=== PATIENT | female | born 1975 | race Caucasian/White ===

== ENCOUNTER → 2016-11-01 | Outpatient (CLI) | payer OTHER ==
[2016-11-01 18:26] LABS: MEAN CORPUSCULAR HGB CONC 32.5 g/dl (32.0-36.5); RED CELL DISTRIBUTION WIDTH 14.3 % (11.5-14.5); WHITE BLOOD COUNT 7.5 K/mm3 (4.0-10.0)
[2016-11-01 19:27] LABS: ALBUMIN 3.3 GM/DL (3.2-5.2); ALBUMIN/GLOBULIN RATIO 1.03 (1.00-1.93); ALKALINE PHOSPHATASE 64 U/L (45-117); ALT/SGPT 63 U/L (12-78); ANION GAP 9 MEQ/L (8-16); AST/SGOT 29 U/L (15-37); BILIRUBIN,TOTAL 0.4 MG/DL (0.2-1.0); BLOOD UREA NITROGEN 10 MG/DL (7-18); CALCIUM LEVEL 8.6 MG/DL (8.5-10.1); CARBON DIOXIDE LEVEL 28 MEQ/L (21-32); CHLORIDE LEVEL 105 MEQ/L (98-107); CHOLESTEROL LEVEL 168 MG/DL (<200); CREATININE FOR GFR 0.74 MG/DL (0.55-1.02); GLOMERULAR FILTRATION RATE > 60.0 (>58); GLUCOSE, FASTING 80 MG/DL (70-105); POTASSIUM SERUM 4.2 MEQ/L (3.5-5.1); SODIUM LEVEL 142 MEQ/L (136-145); TOTAL PROTEIN 6.5 GM/DL (6.4-8.2); TRIGLYCERIDES LEVEL 157 MG/DL (<150)
== END ==
LOC: M WUC 09:42
PROVIDERS: ATTEND Family Medicine
DX: Z13.220 Encounter for screening for lipoid disorders (principal); R60.9 Edema, unspecified

== ENCOUNTER → 2017-03-03 | Outpatient (CLI) | payer OTHER ==
--- NOTE | 2017-03-03 09:36 | REP ---
PA and lateral chest: Comparison is 04/08/2016. The lung crawley are clear. The cardiac size is normal The dayne, mediastinum, and bony thorax are unremarkable. Impression: Negative PA and lateral chest. There is no interval change. Signed by Washington Lorenzo MD 03/03/2017 09:27 A
== END ==
LOC: M WUC 09:10
PROVIDERS: ATTEND Family Medicine
DX: J45.901 Unspecified asthma with (acute) exacerbation (principal)

== ENCOUNTER 2017-07-01 09:30 | Emergency (ER) | payer OTHER | END 2017-07-01 10:38 | disposition home or self-care (01) | LOC: M ED 09:30 | DX: S80.01XA Contusion of right knee, initial encounter (principal); W01.0XXA Fall on same level from slipping, tripping and stumbling without subsequent striking against object, initial encounter; Y92.099 Unspecified place in other non-institutional residence as the place of occurrence of the external cause; Y93.9 Activity, unspecified; Y99.0 Civilian activity done for income or pay; J45.909 Unspecified asthma, uncomplicated; Z79.899 Other long term (current) drug therapy | CPT/HCPCS: 73564 ==

== ENCOUNTER → 2017-09-27 | Outpatient (CLI) | payer OTHER | LOC: M SLEEP 20:00 | DX: G47.33 Obstructive sleep apnea (adult) (pediatric) (principal) | CPT/HCPCS: 95810 ==

== ENCOUNTER → 2017-10-20 | Outpatient (CLI) | payer OTHER | LOC: M SLEEP 19:25 | DX: G47.33 Obstructive sleep apnea (adult) (pediatric) (principal) | CPT/HCPCS: 95811 ==

== ENCOUNTER → 2018-05-05 | Outpatient (REF) | payer OTHER ==
[2018-05-08 14:13] LABS: HPV HYBRID CAPTURE II Negative (Negative)
== END ==
LOC: M SFHCWAGY 15:37
DX: Z12.4 Encounter for screening for malignant neoplasm of cervix (principal)
CPT/HCPCS: G0123

== ENCOUNTER → 2018-05-14 | Outpatient (CLI) | payer OTHER | LOC: M WHC 07:59 | DX: Z12.31 Encounter for screening mammogram for malignant neoplasm of breast (principal); Z80.0 Family history of malignant neoplasm of digestive organs; Z92.0 Personal history of contraception | CPT/HCPCS: 77067 ==

== ENCOUNTER → 2019-10-03 | Outpatient (CLI) | payer BC ==
[~2019-10-03] MED LIST: ALBU83IN; SYMB16INH INH; VENTAER
== END ==
LOC: M LABSMTC 13:53
PROVIDERS: ATTEND Family Medicine
DX: Z11.59 Encounter for screening for other viral diseases (principal)

== ENCOUNTER → 2020-07-24 | Outpatient (CLI) | payer BC ==
[2020-07-26 00:08] LABS: ANTINUCLEAR ANTIBODIES DIRECT Negative (Negative); CYCLIC CITRULLINATED PEPTIDE 11 units (0-19); IgG P18 AB Absent (.); IgG P23 AB Present (.); IgG P28 AB Absent (.); IgG P30 AB Absent (.); IgG P39 AB Absent (.); IgG P41 AB Present (.); IgG P45 AB Absent (.); IgG P66 AB Absent (.); IgG P93 AB Absent (.); IgM P23 AB Absent (.); IgM P39 AB Absent (.); IgM P41 AB Absent (.); LYME IgG WB INTERPRETATION Negative (.); LYME IgM WB INTERPRETATION Negative (.)
== END ==
LOC: M WUC 10:08
PROVIDERS: ATTEND Family Medicine
DX: M25.50 Pain in unspecified joint (principal)

== ENCOUNTER 2020-12-21 13:39 | Inpatient (IN) | payer BC ==
[~2020-12-21] VITALS: Ht 172.7 cm; Wt 169.2 kg
[~2020-12-21 13:39] MED LIST changes: -ALBU83IN; +ALBU83IN INH; -VENTAER; +VENTAER INH
[2020-12-21] MEDS ORDERED: PRED20TA PO (14:03)
[2020-12-21] MEDS ORDERED: DOXY1CAP62 PO (14:03)
[2020-12-21] MEDS ORDERED: NS 1,000 ML IV ONE (15:55)
[2020-12-21] MEDS ORDERED: ONDANSETRON 4MG/2ML VIAL IV ONE (15:55)
[2020-12-21] MEDS ORDERED: ACETAMINOPHEN 500 MG TAB PO ONE (16:25)
[2020-12-21 16:29] LABS: BASO # 0.1 10^3/uL (0.0-0.2); BASO % 0.3 % (0.0-1.0); EOS # 0.1 10^3/uL (0.0-0.5); EOS % 0.3 % (0.0-3.0); HEMATOCRIT 36.9 % (36.0-47.0); HEMOGLOBIN 10.6 g/dl (12.0-15.5); LYMPH # 1.2 10^3/uL (1.5-5.0); MEAN CORPUSCULAR HEMOGLOBIN 19.4 pg (27.0-33.0); MEAN CORPUSCULAR HGB CONC 28.7 g/dl (32.0-36.5); MEAN CORPUSCULAR VOLUME 67.5 fl (80.0-96.0); MONO # 0.8 10^3/uL (0.0-0.8); MONO % 4.1 % (2.0-8.0); NEUTROPHILS # 17.4 10^3/uL (1.5-8.5); NEUTROPHILS % 88.1 % (36.0-66.0); PLATELET COUNT, AUTOMATED 412 10^3/uL (150-450); RED BLOOD COUNT 5.47 10^6/uL (4.00-5.40); WHITE BLOOD COUNT 19.8 10^3/uL (4.0-10.0)
[2020-12-21 16:59] LABS: ALBUMIN 3.1 GM/DL (3.2-5.2); ALT/SGPT 38 U/L (12-78); BILIRUBIN,DIRECT 0.1 MG/DL (0.0-0.2); BILIRUBIN,TOTAL 0.3 MG/DL (0.2-1.0); BLOOD UREA NITROGEN 12 MG/DL (7-18); CALCIUM LEVEL 8.9 MG/DL (8.5-10.1); CARBON DIOXIDE LEVEL 28 MEQ/L (21-32); CHLORIDE LEVEL 104 MEQ/L (98-107); CREATININE FOR GFR 0.88 MG/DL (0.55-1.30); GLOMERULAR FILTRATION RATE > 60.0 (>58); GLUCOSE, FASTING 128 MG/DL (70-100); LIPASE 81 U/L (73-393); POTASSIUM SERUM 3.9 MEQ/L (3.5-5.1); SODIUM LEVEL 140 MEQ/L (136-145); TOTAL PROTEIN 7.2 GM/DL (6.4-8.2)
--- NOTE | 2020-12-21 17:36 | REP ---
INDICATION: RUQ pain, fever, vomiting. COMPARISON: None. TECHNIQUE: Right upper quadrant sonography. FINDINGS: Scanning through the right upper quadrant of the abdomen demonstrates a normal sized, thin-walled gallbladder without evidence of stone or polyp. Common bile duct is normal measuring 0.4 cm in greatest diameter. No focal liver lesion is seen. Liver size is normal. No pancreatic abnormality is observed. No right renal abnormality is seen. There is no evidence of ascites. The right kidney measures 11.9 x 6.8 x 4.9 cm. Scan quality is inhibited some degree by patient body habitus. Increased echogenicity is seen in the liver consistent with diffuse fatty infiltration. IMPRESSION: Evidence of fatty infiltration of the liver. Otherwise negative right upper quadrant sonogram.. <Electronically signed by Mitch Chong > 12/21/20 [id number]
[2020-12-21] MEDS ORDERED: ISOVUE-370 76% 100ML VIAL As Ordered ONE (17:52)
[2020-12-21] MEDS ORDERED: KETOROLAC 30 MG/ML 1ML VIAL IV ONE (18:15)
[2020-12-21 18:21] LABS: RSV AMPLIFICATION NEGATIVE (NEGATIVE)
[2020-12-21] MEDS ORDERED: LORA-674 PO (18:25)
[2020-12-21] MEDS ORDERED: FLUTISP NARES (18:25)
--- NOTE | 2020-12-21 18:40 | REPVR ---
PROCEDURE INFORMATION: Exam: CT Abdomen And Pelvis With Contrast Exam date and time: 12/21/2020 6:00 PM Age: 45 years old Clinical indication: Abdominal pain; Additional info: Ruq pain TECHNIQUE: Imaging protocol: Computed tomography of the abdomen and pelvis with contrast. Radiation optimization: All CT scans at this facility use at least one of these dose optimization techniques: automated exposure control; mA and/or kV adjustment per patient size (includes targeted exams where dose is matched to clinical indication); or iterative reconstruction. Contrast material: ISOVUE 370; Contrast volume: 100 ml; Contrast route: INTRAVENOUS (IV); COMPARISON: GALLBLADDER US 12/21/2020 5:03 PM FINDINGS: Liver: 7 mm benign-appearing low-attenuation foci in the dome and inferior right lobe of the liver not characterized on this single phase examination. These likely represent cysts or biliary hamartomas. Further evaluation with nonemergent ultrasound could be obtained if clinically desired. Mild hepatic steatosis. Remainder of the liver is unremarkable. Gallbladder and bile ducts: Unremarkable gallbladder and biliary tree. Pancreas: Normal. No ductal dilation. Spleen: There is mild splenomegaly with a maximum span of small centimeters. No focal abnormalities demonstrated. Adrenal glands: Normal. No mass. Kidneys and ureters: Normal. No hydronephrosis. Stomach and bowel: There is an inflammatory focus demonstrated in the mesentery in the left lower quadrant adjacent to the descending colon which demonstrates wall thickening and focal dilatation at the site of inflammation. There also appears to be involvement of adjacent small bowel loops demonstrating dilatation, thickened oconnor, and inflammatory changes in the adjacent mesentery. as well. Appendix: No evidence of appendicitis. Intraperitoneal space: Unremarkable. No free air. No significant fluid collection. Vasculature: Unremarkable. No abdominal aortic aneurysm. Lymph nodes: Unremarkable. No enlarged lymph nodes. Urinary bladder: Unremarkable as visualized. Reproductive: There is a 4.2 cm cyst in the left ovary likely functional. Confirmation with nonemergent pelvic ultrasound could be obtained if clinically desired. Bones/joints: Moderate central spinal stenosis L4-L5. Soft tissues: Unremarkable. IMPRESSION: 1. There is mild splenomegaly with a maximum span of small centimeters. No focal abnormalities demonstrated. 2. Abnormal appearance of the distal left colon and regional small bowel loops in the left lower quadrant and mid and upper abdominal region associated with a focus of inflammation in the left lower quadrant. No well-defined abscess demonstrated. Differential diagnosis includes diverticulitis, omental infarct and inflammatory bowel disease originating in the small bowel and secondarily involving the descending colon. Concomitant diverticulitis and inflammatory bowel disease also a consideration as is bowel infection. 3. There is a 4.2 cm cyst in the left ovary likely functional. Confirmation with nonemergent pelvic ultrasound could be obtained if clinically desired. Electronically signed by: Quan Alarcon On 12/21/2020 18:40:26 PM
[2020-12-21] MEDS ORDERED: PIPERACILLIN/TAZOBACTAM SOD 3.375 GM in D5W MINI-BAG PLUS 50 ML IV ONE (19:15)
[2020-12-21] MEDS ORDERED: MORPHINE 4 MG/ML 1ML VIAL/SYRINGE (J2270) IV PRN (19:40)
[2020-12-21] MEDS ORDERED: GLUCAGON INJ 1MG VIAL SC PRN (19:40)
[2020-12-21] MEDS ORDERED: GLUCOSE 4GM CHEW TABLET PO PRN (19:40)
[2020-12-21] MEDS ORDERED: DEXTROSE 50% 50 ML SYRINGE IV PRN (19:40)
[2020-12-21] MEDS ORDERED: NALOXONE INJ 0.4MG/1ML VIAL (J2310 PER 1MG) IV PRN (19:40)
[2020-12-21] MEDS: LORATADINE 10 MG TAB PO SCH (21:00)
[2020-12-21] MEDS ORDERED: MORPHINE 4 MG/ML 1ML VIAL/SYRINGE (J2270) IV ONE (21:35)
[2020-12-21 21:45] VITALS: BP 114/75
[2020-12-21] MEDS: PERCOCET 5MG/325MG TAB PO SCH (22:00)
[2020-12-21] MEDS: D5W/0.45% SODIUM CHLORIDE 1,000 ML IV SCH (22:27)
[2020-12-21] MEDS: CIPROFLOXACIN 400 MG in IV 1 EA IV SCH (22:28)
[2020-12-21] MEDS ORDERED: ALBUTEROL SULFATE 2.5 MG/0.5 ML INH NEB SOLN INH PRN (22:55)
[2020-12-21] MEDS ORDERED: ALBUTEROL 90 MCG/ACT 8GM HFA INHALER INH PRN (22:55)
--- NOTE | 2020-12-21 23:11 | HPEPDOC ---
[facility] Medical History & Physical Date of Admission Dec 21, 2020 Date of Service: Dec 21, 2020 History and Physical CHIEF COMPLAINT: Sharp abdominal pain at 11:45 AM to 12 noon HISTORY OF PRESENT ILLNESS: 45-year-old obese female with BMI 56.7 with past medical history significant for allergic rhinitis, asthma, right carpal tunnel release, fatty liver, L4-L5 central canal stenosis presents emergency room with acute onset of sharp periumbilical epigastric abdominal pain described as 10 out of 10 on pain scale, stabbing, and constant around 11:45 AM this morning which was unrelenting without fever nausea or vomiting patient took some ibuprofen 800 mg and Tylenol 1000 mg at home without relief. Pain is better when she lays still on her right side in position worse when she tries to move and ambulate without accompanying constipation diarrhea bright red blood per rectum melena black tarry stools, and no prior episodes in the past. Patient denies any alcohol use nonsteroidal anti-inflammatory use in the past.Patient was unable to eat any lunch and had some anorexia. She denies any loss of taste. In the ER she was found to be septic with white count of 19.8 tachycardic 116 bpm and tachypneic with respiratory rate of 22 and low-grade temperature of 100.4 CT abdomen and pelvis shows fatty liver distal left lower quadrant inflammation. Hospitalist was asked to admit the patient for diverticulitis possible early abscess. General surgeon Dr. BACON has been consulted. Patient was started on IV Cipro and Flagyl , as needed pain medications, kept n.p.o., IV fluids and placed on hypoglycemic protocol. PAST MEDICAL HISTORY: Morbid obesity BMI 56.7, allergic rhinitis, asthma, right carpal tunnel release, fatty liver, L4-L5 central canal stenosis , left carpal tunnel, left ovarian cyst PAST SURGICAL HISTORY: Right carpal tunnel release SOCIAL HISTORY: Denies alcohol recreational drug use or tobacco use works for [email or web address] FAMILY HISTORY: Mother with diabetes hypertension father alive and well ALLERGIES: Please see below. REVIEW OF SYSTEMS: 10 point review of systems negative aside from positive findings in HPI HOME MEDICATIONS: Please see below. PHYSICAL EXAMINATION: VITAL SIGNS: See below GENERAL APPEARANCE: No distress no cyanosis pallor icterus speaks in full s entences Lying on the right lateral position HEENT: Dry mucous membranes extra muscles intact no thyromegaly cervical lymphadenopathy carotid bruit or stridor Pupils equally round reactive extract muscles are intact neck is supple full range of motion no JVD. CARDIOVASCULAR: S1-S2 sinus rhythm no murmurs rubs or gallops LUNGS: Air entry is equal no wheezing rales or rhonchi clear to auscultation b ilaterally ABDOMEN: Obese soft tender in the epigastric region no rebound guarding positive bowel sounds x4 quadrants EXTREMITIES: No cyanosis clubbing or pitting edema LABORATORY DATA: See below. IMAGING: See below MICROBIOLOGY: Please see below. ASSESSMENT: 45-year-old female with morbid obesity BMI of 56.7, asthma, fatty liver, L4-L5 central canal stenosis, left ovarian cyst, bilateral carpal tunnel with right carpal tunnel release presents to the emergency room with acute onset of periumbilical epigastric abdominal pain without radiation unalleviated with Tylenol and ibuprofen found to be septic with white count of 19.8 tachypneic with respiratory rate of 22 tachycardic with heart rate of 116 bpm and low-grade temperature of 100.4, and CT abdomen and pelvis showing distal left lower quadrant inflammation fatty liver and left ovarian cyst. Patient will be admitted as an inpatient for 2 midnights for the following acute issues: Acute diverticulitis with possible early abscess -General surgery Dr. BACON has been consulted and recommended IV antibiotics and n.p.o. status he will be monitoring patient for worsening abscess formation which may require drainage placement in the future if no resolution with IV antibiotics. -IV fluids n.p.o. IV antiemetics IV pain medications IV Cipro IV Flagyl morbid obesity BMI of 56.7, -Complicating care specially with use of opioids for pain control with increased risk of hypercarbic respiratory failure most likely due to undiagnosed obstructive sleep apnea or hypoventilation syndrome. -As needed Narcan if patient's respiratory rate on opioids is less than 12, respiratory distress, or altered mental status occur -Nocturnal oximetry and МАРИЯ protocol asthma, compensated -Resume home bronchodilators as needed fatty liver -Check lipid profile L4-L5 central canal stenosis -On as needed pain medications left ovarian cyst -No immediate need to evaluate during this admission bilateral carpal tunnel with right carpal tunnel release -No new complaints Diet n.p.o. IV fluids hypoglycemic protocol DVT prophylaxis compression stockings CODE STATUS full code Vital Signs Vital Signs Date Time Temp Pulse Resp B/P (MAP) Pulse Ox O2 Delivery O2 Flow Rate FiO2 12/21/20 22:27 16 Room Air 12/21/20 21:45 99.6 111 114/75 (88) 99 Laboratory Data Labs 24H Laboratory Tests 2 12/21/20 15:52: Immature Granulocyte % (Auto) 1.2, Neutrophils (%) (Auto) 88.1H, Lymphocytes (%) (Auto) 6.0L, Monocytes (%) (Auto) 4.1, Eosinophils (%) (Auto) 0.3, Basophils (%) (Auto) 0.3, Neutrophils # (Auto) 17.4H, Lymphocytes # (Auto) 1.2L, Monocytes # (Auto) 0.8, Eosinophils # (Auto) 0.1, Basophils # (Auto) 0.1, Nucleated Red Blood Cells % (auto) 0.0, Anion Gap 8, Glomerular Filtration Rate > 60.0, Calcium Level 8.9, Total Bilirubin 0.3, Direct Bilirubin 0.1, Aspartate Amino Transf (AST/SGOT) 27, Alanine Aminotransferase (ALT/SGPT) 38, Alkaline Phosphatase 74, Total Protein 7.2, Albumin 3.1L, Albumin/Globulin Ratio 0.8L, Lipase 81 12/21/20 16:36: POC Beta HCG, Quantitative < 5.0 12/21/20 17:24: Coronavirus (COVID-19)(PCR) NEGATIVE, Influenza Type A (RT-PCR) NEGATIVE, Influenza Type B (RT-PCR) NEGATIVE, Respiratory Syncytial Virus (PCR) NEGATIVE CBC/BMP Laboratory Tests 12/21/20 15:52 Home Medications Scheduled Budesonide/Formoterol (Symbicort 160-4.5 Mcg Inhaler) 60 Puff/Inhaler Aers, 2 PUFF INH BID Doxycycline Monohydrate (Doxycycline Monohydrate) 100 Mg Capsule, 100 MG PO BID Fluticasone Propionate (Fluticasone Propionate) 16 Gm [place].susp, 2 SPRAY NARES QHS Loratadine (Loratadine) 10 Mg Tablet, 10 MG PO QHS Prednisone (Prednisone) 20 Mg Tablet, 40 MG PO DAILY Scheduled PRN Albuterol Sulf (Albuterol Sulfate) 2.5 Mg/3 Ml Nebu, 1 VIAL INH QID PRN for SOB/WHEEZING Albuterol Sulfate (Ventolin Hfa) 108 Mcg/Act Aer, 2 PUFF INH Q4H PRN for SOB/WHEEZING Allergies Coded Allergies: No Known Allergies (Unverified , 07/01/17) A-FIB/CHADSVASC A-FIB History Current/History of A-Fib/PAF?: No Current PO Anticoag Therapy: No Age/Risk Factor Scoring CHADSVASC: CHADSVASC Response (Comments) Value Age Risk Factor Age < 65 years old 0 Gender Risk Factor Female 1 Hx of CHF No 0 Hx of HTN No 0 Hx of Stroke/TIA/or VTE No 0 Hx of Diabetes No 0 Hx of Vascular Disease No 0 Total 1 Treatment Treatment ordered: NONE INDU GARCIA MD Dec 21, 2020 23:11
[2020-12-21] MEDS ORDERED: NS 2,000 ML IV ONE (23:20)
[2020-12-22] MEDS: metroNIDAZOLE 500 MG in IV 1 EA IV SCH ×4 (00:03→23:44)
[2020-12-22] MEDS: KETOROLAC 30 MG/ML 1ML VIAL IV SCH ×5 (00:03→23:44)
[2020-12-22] MEDS: FLUTICASONE PROP 0.05% NASAL SPRAY 16 GM (FLONASE) NARES SCH ×2 (01:25→21:05)
[2020-12-22 04:10] LABS: BASO % 0.2 % (0.0-1.0); EOS % 0.1 % (0.0-3.0); HEMATOCRIT 30.7 % (36.0-47.0); LYMPH # 1.5 10^3/uL (1.5-5.0); LYMPH % 8.1 % (24.0-44.0); MEAN CORPUSCULAR HEMOGLOBIN 19.9 pg (27.0-33.0); MEAN CORPUSCULAR HGB CONC 29.3 g/dl (32.0-36.5); MEAN CORPUSCULAR VOLUME 67.9 fl (80.0-96.0); MONO # 0.7 10^3/uL (0.0-0.8); MONO % 3.8 % (2.0-8.0); NEUTROPHILS # 15.6 10^3/uL (1.5-8.5); NEUTROPHILS % 87.1 % (36.0-66.0); PLATELET COUNT, AUTOMATED 297 10^3/uL (150-450); RED BLOOD COUNT 4.52 10^6/uL (4.00-5.40); WHITE BLOOD COUNT 17.9 10^3/uL (4.0-10.0)
[2020-12-22 04:45] LABS: BLOOD UREA NITROGEN 11 MG/DL (7-18); CALCIUM LEVEL 8.2 MG/DL (8.5-10.1); CARBON DIOXIDE LEVEL 29 MEQ/L (21-32); CHLORIDE LEVEL 108 MEQ/L (98-107); CHOLESTEROL LEVEL 99 MG/DL (<200); CREATININE FOR GFR 0.84 MG/DL (0.55-1.30); GLOMERULAR FILTRATION RATE > 60.0 (>58); GLUCOSE, FASTING 130 MG/DL (70-100); HDL CHOLESTEROL 45 MG/DL (>40); LDL CHOLESTEROL 43 MG/DL (<100); NON-HDL-C 54 MG/DL; POTASSIUM SERUM 4.3 MEQ/L (3.5-5.1); SODIUM LEVEL 144 MEQ/L (136-145); TRIGLYCERIDES LEVEL 55 MG/DL (<150)
[2020-12-22] MEDS: D5W/0.45% SODIUM CHLORIDE 1,000 ML IV SCH ×2 (05:18→15:40)
[2020-12-22] MEDS: PERCOCET 5MG/325MG TAB PO SCH ×3 (05:19→21:05)
[2020-12-22 06:00] VITALS: BP 107/64
[2020-12-22] MEDS: SYMBICORT 160/4.5MCG INHALER 6GM INH SCH ×2 (07:26→19:58)
[2020-12-22] MEDS: CIPROFLOXACIN 400 MG in IV 1 EA IV SCH ×2 (09:19→21:05)
--- NOTE | 2020-12-22 09:52 | CR.PDOC ---
General Surgery Consultation Date of Consultation 12/22/20 History and Physical CONSULT REPORT FOR: hospitalist service REASON FOR CONSULTATION: abdominal pain, enteritis colitis/diverticulitis HISTORY OF PRESENT ILLNESS: Patient is a 45 F admitted overnight for severe abdominal pain and discomfort that started early in the day. Patient reports she was in her usual state of health up until midmorning Thursday when she had sudden onset of severe lower abdominal pain that she describes as sharp and crampy there all followed by nausea and vomiting. She denies any of her family members that are ill similar to her. She has no prior episodes of similar symptoms. She had breakfast abdominal earlier in the day with her daughter and her daughter feels fine. She has no prior episodes of diverticulitis though she tells me her grandmother of diverticulitis. She has no prior colonoscopies. She was evaluated in the emergency room and found to have leukocytosis up to 19,000, uncomfortable in appearance also with low-grade fever. She has CT scan of the abdomen pelvis showing inflammation along the lower abdomen with a small amount of free fluid and mesenteric edema related to the small bowel as well as the left side of the colon. No free air. She was admitted overnight for possibility of diverticulitis. She was started on IV fluids as well as ciprofloxacin and metronidazole. She is seen early this morning. She reports she is mildly improved though she still has moderate discomfort and she points to the area to the right of the umbilicus, right lower quadrant and right upper quadrant where she feels most of the discomfort. She also has some discomfort over the left lower abdomen but more so on the right. She denies any nausea. She has not had any diarrhea. Her nausea has improved. She is documented to have episodes of low-grade fever overnight. PAST MEDICAL HISTORY: 1. obesity with bmi 56.7 2. leah on cpap 3. denies diabetes 4. asthma. PAST SURGICAL HISTORY: INCLUDES: 1. carpal tunnel surgery. PREVIOUS ANESTHESIA REACTIONS: denies ALLERGIES: Please see below. FAMILY HISTORY: grandmother had diverticulitis. HOME MEDICATIONS: Please see below. REVIEW OF SYSTEMS: GENERAL: low grade fever on presentation. Symptoms are acute in nature 1 day duration otherwise she was in her usual state of health HEENT: Denies problems with vision or hearing. NECK: Denies any neck pain]. CARDIOVASCULAR: Denies chest pain and palpitations. MUSCULOSKELETAL: Had recent carpal tunnel surgery. SKIN: Denies rash. NEUROLOGIC: Denies headaches. HEMATOLOGY/ONCOLOGY: Denies bleeding or clotting disorder. PULMONARY: Denies chronic cough, dyspnea and wheezing. She has sleep apnea on CPAP which he uses. GASTROINTESTINAL: Denies rectal bleeding, family history of colon cancer, constipation, diarrhea, dysphagia, heartburn and jaundice. no prior colonoscopies GENITOURINARY: Denies dysuria, frequency, hematuria and nocturia. ENDOCRINE: Denies polydipsia, polyphagia, polyuria, heat or cold intolerance. INFECTIOUS: Denies any recent upper respiratory tract infection, UTI, need for use of antibiotics. NUTRITION: generally good appetite, but not hungry at the moment. PHYSICAL EXAMINATION: VITALS SIGNS: Please see below. GENERAL APPEARANCE: Patient seen laying on her right side, looks mildly uncomfortable. SKIN: Warm and dry. HEENT: Normocephalic, atraumatic. LUNGS: Clear to auscultation bilaterally. No wheezing appreciated. HEART: No chest wall abnormalities. Regular rate and rhythm with no murmurs ap preciated. ABDOMEN: Abdomen is obese, mildly distended, soft. Tender mostly on the right side -rlq, ruq, no guarding. mildly tender over llq. EXTREMITIES: Extremities have no deformities. No edema identified ANCILLARIES: . LABORATORY DATA: Please see below. IMAGING STUDIES: CT abdomen and pelvis Inflammation related to the left colon also loops of small bowel near it. No well-defined abscess. No free air. RUQ US - fatty liver IMPRESSION AND PLAN: enteritis/colitis vs diverticulitis There is a good amount of inflammation, fluid within the mesentery at the sigmoid level. Unclear from history and exam and imaging if it is small bowel enteritis vs colon/diverticulitis. Patient is centrifugal casting machine tender, mildly better, still with low grade fever. Continue with abx. ambulate. sips of clears for comfort no indication for emergent surgical exploration at this point I would suggest to follow the crp which may be more sensitive in determining soft tissue inflammation resolution if no better tomorrow, repeat CT to look for abscess formation. will follow along. Vital Signs Vital Signs Date Time Temp Pulse Resp B/P (MAP) Pulse Ox O2 Delivery O2 Flow Rate FiO2 12/22/20 06:00 100.4 123 20 107/64 (78) 92 Room Air I&Os I&O- Last 24 Hours up to 6 AM 12/22/20 06:00 Intake Total 3665 ml Output Total 0 ml Balance 3665 ml Laboratory Data Labs 24H Laboratory Tests 2 12/21/20 15:52: Immature Granulocyte % (Auto) 1.2, Neutrophils (%) (Auto) 88.1H, Lymphocytes (%) (Auto) 6.0L, Monocytes (%) (Auto) 4.1, Eosinophils (%) (Auto) 0.3, Basophils (%) (Auto) 0.3, Neutrophils # (Auto) 17.4H, Lymphocytes # (Auto) 1.2L, Monocytes # (Auto) 0.8, Eosinophils # (Auto) 0.1, Basophils # (Auto) 0.1, Nucleated Red Blood Cells % (auto) 0.0, Anion Gap 8, Glomerular Filtration Rate > 60.0, Calcium Level 8.9, Total Bilirubin 0.3, Direct Bilirubin 0.1, Aspartate Amino Transf (AST/SGOT) 27, Alanine Aminotransferase (ALT/SGPT) 38, Alkaline Phospha tase 74, Total Protein 7.2, Albumin 3.1L, Albumin/Globulin Ratio 0.8L, Lipase 81 12/21/20 16:36: POC Beta HCG, Quantitative < 5.0 12/21/20 17:24: Coronavirus (COVID-19)(PCR) NEGATIVE, Influenza Type A (RT-PCR) NEGATIVE, Influenza Type B (RT-PCR) NEGATIVE, Respiratory Syncytial Virus (PCR) NEGATIVE 12/21/20 23:41: Erythrocyte Sedimentation Rate 67H, Lactic Acid Level 2.5*H, C-Reactive Protein, Quantitative 9.53H 12/22/20 03:58: Immature Granulocyte % (Auto) 0.7, Neutrophils (%) (Auto) 87.1H, Lymphocytes (%) (Auto) 8.1L, Monocytes (%) (Auto) 3.8, Eosinophils (%) (Auto) 0.1, Basophils (%) (Auto) 0.2, Neutrophils # (Auto) 15.6H, Lymphocytes # (Auto) 1.5, Monocytes # (Auto) 0.7, Eosinophils # (Auto) 0.0, Basophils # (Auto) 0.0, Nucleated Red Blood Cells % (auto) 0.0, Anion Gap 7L, Glomerular Filtration Rate > 60.0, Estimated Mean Plasma Glucose 126H, Hemoglobin A1c 6.0, Lactic Acid Followup at 4 Hours 1.2, Calcium Level 8.2L, Triglycerides Level 55, Total Cholesterol 99, LDL Cholesterol 43, Non-HDL Cholesterol (LDL + VLDL) 54, Total HDL Cholesterol 45, Cholesterol/HDL Ratio 2.200, Thyroid Stimulating Hormone (TSH) 1.330 12/22/20 06:26: CBC/BMP Laboratory Tests 12/21/20 15:52 12/22/20 03:58 Microbiology Microbiology 12/21/20 Blood Culture, Received Pending 12/21/20 Blood Culture, Received Pending Home Medications Scheduled Budesonide/Formoterol (Symbicort 160-4.5 Mcg Inhaler) 60 Puff/Inhaler Aers, 2 PUFF INH BID, (Reported) Doxycycline Monohydrate (Doxycycline Monohydrate) 100 Mg Capsule, 100 MG PO BID, (Reported) Fluticasone Propionate (Fluticasone Propionate) 16 Gm [place].susp, 2 SPRAY NARES QHS, (Reported) Loratadine (Loratadine) 10 Mg Tablet, 10 MG PO QHS, (Reported) Prednisone (Prednisone) 20 Mg Tablet, 40 MG PO DAILY, (Reported) Scheduled PRN Albuterol Sulf (Albuterol Sulfate) 2.5 Mg/3 Ml Nebu, 1 VIAL INH QID PRN for SOB/WHEEZING, (Reported) Albuterol Sulfate (Ventolin Hfa) 108 Mcg/Act Aer, 2 PUFF INH Q4H PRN for SOB/WHEEZING, (Reported) Allergies Coded Allergies: No Known Allergies (Unverified , 07/01/17) HOLGER BACON MD Dec 22, 2020 09:52
--- NOTE | 2020-12-22 11:39 | IPNPDOC ---
Text Note Date of Service The patient was seen on 12/22/20. NOTE Hospitalist Progress Note Subjective: Patient continues to suffer from fairly severe abdominal pain. No nausea or vomiting at this time. Objective: General: Awake, alert, oriented 3. Not in any acute distress. HEENT: Head normocephalic, atraumatic, sclera are nonicteric. Hearing is grossly intact to conversation. Respiratory: Clear to auscultation bilaterally with no wheezes, rales, or rhonchi. Cardiovascular: Regular rate and rhythm, with no rubs, gallops, or murmur. Abdomen: Soft, tender to even light palpation, obese, Bowel sounds are faint, but present. Extremities: 2+ pulses in the radial and dorsalis pedis bilaterally. No evidence of clubbing or cyanosis. Assessment: Acute diverticulitis, with concern for possible abscess formation Morbid obesity with BMI greater than 50 Asthma Fatty liver L4-5 central canal stenosis stenosis Left ovarian cyst (incidental finding, recommend follow-up outpatient ultrasound) Plan: -Continue bowel rest / n.p.o. at this time -Continue Cipro and Flagyl empirically -Continue fluid resuscitation with normal saline -Continue pain control with morphine, Toradol, Percocet -General surgery has been consulted, and they recommendation to follow a daily CRP, and if the patient is not clinically improved tomorrow, then will repeat CT evaluate for abscess formation. Recommendations are much appreciated. VS,Fishbone, I+O VS, Fishbone, I+O Laboratory Tests 12/21/20 15:52 12/22/20 03:58 Vital Signs Date Time Temp Pulse Resp B/P (MAP) Pulse Ox O2 Delivery O2 Flow Rate FiO2 12/22/20 06:00 100.4 123 20 107/64 (78) 92 Room Air I&O- Last 24 Hours up to 6 AM 12/22/20 06:00 Intake Total 3665 ml Output Total 0 ml Balance 3665 ml VERONICA SHERMAN DO Dec 22, 2020 11:39
[2020-12-22] MEDS: ACETAMINOPHEN TAB 650MG DOSE (2X325MG) PO PRN (12:16)
[2020-12-22] MEDS ORDERED: IBUPROFEN 600MG TAB PO PRN (13:55)
[2020-12-22 14:00] VITALS: BP 100/62
[2020-12-22] MEDS ORDERED: SODIUM CHLORIDE 0.9% 1000ML IV ONE (14:30)
[2020-12-22 14:48] VITALS: BP 102/64
[2020-12-22] MEDS: LORATADINE 10 MG TAB PO SCH (21:05)
[2020-12-22 21:11] VITALS: BP 116/77
[2020-12-23 05:10] VITALS: BP 121/79
[2020-12-23] MEDS: KETOROLAC 30 MG/ML 1ML VIAL IV SCH ×3 (05:13→18:22)
[2020-12-23] MEDS: PERCOCET 5MG/325MG TAB PO SCH ×3 (05:14→21:24)
[2020-12-23] MEDS: D5W/0.45% SODIUM CHLORIDE 1,000 ML IV SCH ×3 (05:30→21:24)
[2020-12-23 06:17] LABS: BASO % 0.2 % (0.0-1.0); EOS # 0.2 10^3/uL (0.0-0.5); HEMATOCRIT 29.8 % (36.0-47.0); HEMOGLOBIN 8.4 g/dl (12.0-15.5); LYMPH # 0.9 10^3/uL (1.5-5.0); LYMPH % 5.3 % (24.0-44.0); MEAN CORPUSCULAR HEMOGLOBIN 19.3 pg (27.0-33.0); MEAN CORPUSCULAR HGB CONC 28.2 g/dl (32.0-36.5); MEAN CORPUSCULAR VOLUME 68.3 fl (80.0-96.0); MONO # 0.6 10^3/uL (0.0-0.8); MONO % 3.3 % (2.0-8.0); PLATELET COUNT, AUTOMATED 287 10^3/uL (150-450); RED BLOOD COUNT 4.36 10^6/uL (4.00-5.40); WHITE BLOOD COUNT 16.8 10^3/uL (4.0-10.0)
[2020-12-23 06:49] LABS: BLOOD UREA NITROGEN 9 MG/DL (7-18); CALCIUM LEVEL 7.8 MG/DL (8.5-10.1); CARBON DIOXIDE LEVEL 25 MEQ/L (21-32); CHLORIDE LEVEL 108 MEQ/L (98-107); CREATININE FOR GFR 0.72 MG/DL (0.55-1.30); GLOMERULAR FILTRATION RATE > 60.0 (>58); GLUCOSE, FASTING 147 MG/DL (70-100); POTASSIUM SERUM 3.9 MEQ/L (3.5-5.1); SODIUM LEVEL 139 MEQ/L (136-145)
[2020-12-23] MEDS: SYMBICORT 160/4.5MCG INHALER 6GM INH SCH ×2 (07:07→20:01)
[2020-12-23 07:40] VITALS: BP 114/62
[2020-12-23] MEDS: metroNIDAZOLE 500 MG in IV 1 EA IV SCH ×2 (08:28→16:18)
[2020-12-23 10:00] VITALS: BP 109/64
[2020-12-23] MEDS: CIPROFLOXACIN 400 MG in IV 1 EA IV SCH ×2 (10:07→21:24)
[2020-12-23] MEDS: GASTROGRAFIN SOLUTION 30ML PO SCH ×2 (10:08→10:37)
[2020-12-23] MEDS: ACETAMINOPHEN TAB 650MG DOSE (2X325MG) PO PRN (10:58)
[2020-12-23] MEDS ORDERED: ISOVUE-370 76% 100ML VIAL As Ordered ONE (11:19)
--- NOTE | 2020-12-23 11:19 | IPNPDOC ---
Text Note Date of Service The patient was seen on 12/23/20. NOTE Patient reports feeling mildly improved with her abdominal pain, denies nausea. She had documented febrile episodes yesterday. No bowel movements reported. She has not noted if she is passing any flatus. Vital signs T-max 101.1 at 1400 yesterday to current 99.4 Pulse rate 115 Respiratory rate 19, 99% at room air Blood pressure 116/77 Examination Looks a bit more comfortable today. She is laying flat in bed on her back. Lung sounds are clear to auscultation bilaterally Slightly tachycardic, regular rhythm Abdomen is obese, minimally distended. Main area of tenderness is around the mid abdomen more on the right than on the left, mild guarding at around that area. Impression and plan Enteritis versus diverticulitis with continued ongoing symptoms, systemic infla mmatory response from this Repeat labs shows persistent leukocytosis, markedly high CRP of 29.4 which is a big change from initial CRP of 9.5. Recommend repeating CT abdomen and pelvis, look for drainable fluid collection and if there is set up for percutaneous drainage. Continue with IV antibiotics. She may be ready for clears after the CT VS,Fishbone, I+O VS, Fishbone, I+O Laboratory Tests 12/23/20 05:42 Vital Signs Date Time Temp Pulse Resp B/P (MAP) Pulse Ox O2 Delivery O2 Flow Rate FiO2 12/23/20 10:00 98.3 103 20 109/64 (79) 90 Room Air I&O- Last 24 Hours up to 6 AM 12/23/20 06:00 Intake Total 1100 ml Output Total 1000 ml Balance 100 ml HOLGER BACON MD Dec 23, 2020 11:19
--- NOTE | 2020-12-23 11:52 | REP ---
INDICATION: productive cough. COMPARISON: Comparison chest x-ray April 05, 2017. TECHNIQUE: Two views.. FINDINGS: The lungs are well inflated and free of infiltrate. The pleural angles are sharp. The heart size is normal. Pulmonary vasculature is not increased. No significant bony abnormality is seen. IMPRESSION: No acute disease. No infiltrate seen.. <Electronically signed by Mitch Chong > 12/23/20 [id number]
--- NOTE | 2020-12-23 12:15 | REP ---
INDICATION: ffup enteritis/diverticulitis. COMPARISON: Comparison CT study December 21, 2020.. TECHNIQUE: Helical scanning is acquired and 3 mm axial images re-formatted. Coronal and sagittal MPR images are generated. The CT contrast enhancement dose is 100 mL of intravenous Isovue 370. Oral contrast was also administered. FINDINGS: Preliminary digital paper cutter radiograph is noncontributory. There is discoid atelectasis in the right lower lobe and a tiny sliver of right pleural fluid is visible. There is mild diffuse fatty infiltration of the liver. The liver appears enlarged with a midclavicular vertical span of 20.6 cm. This is unchanged. The spleen remains homogeneous. The gallbladder is distended measuring up to 11.7 cm in greatest diameter today. No pancreatic abnormality is seen. Normal adrenal glands are observed. Kidneys enhance symmetrically. There are small parapelvic cysts in the left kidney. No hydronephrosis is seen. The previously noted inflammatory changes in the left mid abdomen are again noted essentially unchanged. There is a segment of mural thickening in the redone in mid transverse colon with pericolonic streaking and adjacent induration and infiltration of the mesenteric fat in the left mid abdomen. This is essentially unchanged. No stacie abscess is seen. I do not see definite diverticulosis in the descending colon. There is diverticulosis in the sigmoid segment. There is a small quantity of fluid adjacent to central abdominal small bowel loops in both the right and to the left of the abdomen consistent with ascitic fluid. The previously noted cystic area in the left ovary is again seen. There is left pericolic fluid adjacent to this. The ovaries are somewhat high in the pelvis. Urinary bladder and uterus are unremarkable. No obstructive lesion is seen. There is a single diverticulum in the posterior wall of the cecum. A normal caliber appendix is seen. IMPRESSION: Findings are essentially unchanged from the December 21, 2020 study. There is a abnormal loop of descending colon characterized by mural thickening and pericolonic streaking. There is fairly extensive inflammation in the adjacent pericolonic mesenteric fat and there are areas of interloop ascitic fluid in the abdomen left pericolic region and between loops of small bowel which are slightly inflamed as well. There is no evidence of free air or drainable abscess. There is a single right colonic diverticulum and there is diverticulosis of the distal sigmoid colon.. Differential possibilities include diverticulitis, descending colonic malignancy, and inflammatory bowel disease. <Electronically signed by Mitch Chong > 12/23/20 [id number]
[2020-12-23 14:00] VITALS: BP 118/69
--- NOTE | 2020-12-23 14:37 | IPNPDOC ---
Subjective Date Seen The patient was seen on 12/23/20. Subjective Chief Complaint/HPI Mrs. Lopez is a 45 year old female with morbid obesity and asthma who presents with abdominal pain and found to have acute diverticulitis. This morning, he abdominal pain was feeling slightly better, but still present. Denies chest pain, but did report some shortness of breath. CXR did not demonstrate any acute cardiopulmonary disease. Otherwise, patient was on prednisone outpatient for bronchitis. She completed her steroid course. Objective Physical Examination General Exam: Positive: Alert, Cooperative Eye Exam: Negative: Sclera icteric ENT Exam: Positive: Atraumatic Neck Exam: Positive: Supple Chest Exam: Positive: Clear to auscultation Heart Exam: Positive: Tachycardic, Regular Rhythm Abdomen Exam: Positive: Normal bowel sounds, Soft; Negative: Tenderness Extremity Exam: Positive: Edema Neuro Exam: Positive: Normal Speech Psych Exam: Positive: Mental status NL, Mood NL Assessment /Plan Assessment Mrs. Lopez is a 45 year old female with morbid obesity and asthma who presents with abdominal pain and found to have acute diverticulitis. General surgery following recommendations appreciated. Continue ciprofloxacin, metronidazole, and IVF Plan/VTE VTE Prophylaxis Ordered?: Yes Plan 1. Acute diverticulitis vs enteritis -General surgery following, recommendations appreciated -Continue with ciprofloxacin and metronidazole day 3 -Continue IVF -Currently NPO 2. Asthma -Continue PRN albuterol 3. Morbid obesity -Complicates care 4. DVT ppx -SCD Disposition: Pending clinical improvement VS, I&O, 24H, Fishbone Vital Signs/I&O Vital Signs Date Time Temp Pulse Resp B/P (MAP) Pulse Ox O2 Delivery O2 Flow Rate FiO2 12/23/20 14:10 24 12/23/20 10:00 98.3 103 109/64 (79) 90 Room Air I&O- Last 24 Hours up to 6 AM 12/23/20 06:00 Intake Total 1100 ml Output Total 1000 ml Balance 100 ml Laboratory Data 24H LABS Laboratory Tests 2 12/22/20 16:56: Bedside Glucose (Misc Panel) 100 12/22/20 19:00: Urine Color DRU, Urine Appearance HAZY, Urine pH 5.0, Urine Specific [place] 1.036, Urine Protein 2+H, Urine Glucose (UA) NEGATIVE, Urine Ketones NEGATIVE, Urine Blood NEGATIVE, Urine Nitrite NEGATIVE, Urine Bilirubin NEGATIVE, Urine Urobilinogen 0.2, Urine Leukocyte Esterase NEGATIVE, Urine WBC (Auto) 10H, Urine RBC (Auto) 2, Urine Hyaline Casts (Auto) 0, Urine Bacteria (Auto) 1+H, Urine Squamous Epithelial Cells 7, Urine Mucus (Auto) SMALL, Urine Sperm (Auto) 12/22/20 20:41: Bedside Glucose (Misc Panel) 116H 12/23/20 00:28: Bedside Glucose (Misc Panel) 131H 12/23/20 05:42: Immature Granulocyte % (Auto) 1.2, Neutrophils (%) (Auto) 89.0H, Lymphocytes (%) (Auto) 5.3L, Monocytes (%) (Auto) 3.3, Eosinophils (%) (Auto) 1.0, Basophils (%) (Auto) 0.2, Neutrophils # (Auto) 15.0H, Lymphocytes # (Auto) 0.9L, Monocytes # (Auto) 0.6, Eosinophils # (Auto) 0.2, Basophils # (Auto) 0.0, Nucleated Red Blood Cells % (auto) 0.0, Anion Gap 6L, Glomerular Filtration Rate > 60.0, Calcium Level 7.8L, C-Reactive Protein, Quantitative 29.40H 12/23/20 12:28: Bedside Glucose (Misc Panel) 94 CBC/BMP Laboratory Tests 12/23/20 05:42 Microbiology Microbiology 12/21/20 Blood Culture - Preliminary, Resulted No growth after 24 hours . All specim... 12/21/20 Blood Culture - Preliminary, Resulted No growth after 24 hours . All specim... ARBEN GALLO DO Dec 23, 2020 14:37
[2020-12-23 18:00] VITALS: BP 105/70
[2020-12-23 21:00] VITALS: BP 113/67
[2020-12-23] MEDS: FLUTICASONE PROP 0.05% NASAL SPRAY 16 GM (FLONASE) NARES SCH (21:24)
[2020-12-23] MEDS: LORATADINE 10 MG TAB PO SCH (21:24)
[2020-12-24] MEDS: KETOROLAC 30 MG/ML 1ML VIAL IV SCH ×4 (00:08→17:03)
[2020-12-24] MEDS: metroNIDAZOLE 500 MG in IV 1 EA IV SCH ×3 (00:08→15:27)
[2020-12-24] MEDS: PERCOCET 5MG/325MG TAB PO SCH (05:07)
[2020-12-24 05:16] VITALS: BP 111/67
[2020-12-24 06:43] LABS: BASO % 0.2 % (0.0-1.0); EOS # 0.3 10^3/uL (0.0-0.5); EOS % 2.3 % (0.0-3.0); HEMATOCRIT 28.5 % (36.0-47.0); LYMPH # 0.8 10^3/uL (1.5-5.0); LYMPH % 6.8 % (24.0-44.0); MEAN CORPUSCULAR HEMOGLOBIN 19.2 pg (27.0-33.0); MEAN CORPUSCULAR HGB CONC 28.1 g/dl (32.0-36.5); MEAN CORPUSCULAR VOLUME 68.5 fl (80.0-96.0); MONO # 0.5 10^3/uL (0.0-0.8); MONO % 4.3 % (2.0-8.0); NEUTROPHILS # 10.6 10^3/uL (1.5-8.5); PLATELET COUNT, AUTOMATED 269 10^3/uL (150-450); RED BLOOD COUNT 4.16 10^6/uL (4.00-5.40); WHITE BLOOD COUNT 12.4 10^3/uL (4.0-10.0)
[2020-12-24 07:18] LABS: BLOOD UREA NITROGEN 6 MG/DL (7-18); CALCIUM LEVEL 7.7 MG/DL (8.5-10.1); CARBON DIOXIDE LEVEL 26 MEQ/L (21-32); CHLORIDE LEVEL 107 MEQ/L (98-107); CREATININE FOR GFR 0.59 MG/DL (0.55-1.30); GLOMERULAR FILTRATION RATE > 60.0 (>58); GLUCOSE, FASTING 141 MG/DL (70-100); POTASSIUM SERUM 3.8 MEQ/L (3.5-5.1); SODIUM LEVEL 139 MEQ/L (136-145)
[2020-12-24] MEDS: SYMBICORT 160/4.5MCG INHALER 6GM INH SCH ×2 (07:26→20:57)
[2020-12-24] MEDS: D5W/0.45% SODIUM CHLORIDE 1,000 ML IV SCH ×2 (08:13→18:16)
[2020-12-24] MEDS: CIPROFLOXACIN 400 MG in IV 1 EA IV SCH ×2 (09:39→21:01)
--- NOTE | 2020-12-24 13:02 | IPNPDOC ---
Text Note Date of Service The patient was seen on 12/24/20. NOTE General surgery. Dr. Goyal The patient is sitting up on the side of the bed reporting improvement in her abdominal pain. Denies nausea or vomiting. Reports 2 bowel movements this morning. T-max 100.1 at 1400 hrs. 12/23/2020. This morning 99.3. Sitting on the side of the bed, currently appears comfortable. Heart rate 104, respiratory rate 20, blood pressure 111/67, 93% room air. Abdomen is obese, soft, mildly distended, slight tenderness with palpation in the right upper and mid abdomen areas. WBC 12.4, decreased from 16.8. Hemoglobin 8.0, platelets 269 CRP 26.10 this morning, decreased slightly from 29.40 yesterday. Assessment/plan enteritis versus diverticulitis, SIRS. The patient is reviewed and examined as per Dr. Goyal this morning. The patient is sitting on the side of the bed and reports improvement in her symptoms, decrease pain. The patient is afebrile this morning. CRP is decreased slightly today, WBC also decreased today. CT abdomen/pelvis obtained yesterday did not indicate any abscess or drainable fluid collection. Continue IV fluids, IV antibiotics as per hospitalist. Trial of clear liquid Discussed tentative plan for outpatient colonoscopy. Continue to closely monitor. VS,Fishbone, I+O VS, Fishbone, I+O Laboratory Tests 12/24/20 06:33 Vital Signs Date Time Temp Pulse Resp B/P (MAP) Pulse Ox O2 Delivery O2 Flow Rate FiO2 12/24/20 05:37 18 12/24/20 05:16 99.3 104 111/67 (82) 93 Room Air I&O- Last 24 Hours up to 6 AM 12/24/20 06:00 Intake Total 0 ml Output Total 1325 ml Balance -1325 ml Tracy Buck Dec 24, 2020 13:02
[2020-12-24 14:00] VITALS: BP 126/98
[2020-12-24] MEDS ORDERED: PERCOCET 5MG/325MG TAB PO PRN (14:00)
--- NOTE | 2020-12-24 14:49 | IPNPDOC ---
Subjective Date Seen The patient was seen on 12/24/20. Subjective Chief Complaint/HPI Mrs. Lopez is a 45 year old female with morbid obesity and asthma who presents with abdominal pain and found to have acute diverticulitis. This morning, she feels that her abdominal pain is improving. She is now on a clear liquid diet. WBC and CRP also improving, but CRP still very elevated at 26.1. Continue with antibiotics and supportive care. Objective Physical Examination General Exam: Positive: Alert, Cooperative Eye Exam: Negative: Sclera icteric ENT Exam: Positive: Atraumatic Neck Exam: Positive: Supple Chest Exam: Positive: Clear to auscultation Heart Exam: Positive: Tachycardic, Regular Rhythm Abdomen Exam: Positive: Normal bowel sounds, Soft; Negative: Tenderness Extremity Exam: Positive: Edema Neuro Exam: Positive: Normal Speech Psych Exam: Positive: Mental status NL, Mood NL Assessment /Plan Assessment Mrs. Lopez is a 45 year old female with morbid obesity and asthma who presents with abdominal pain and found to have acute diverticulitis. General surgery following recommendations appreciated. Continue ciprofloxacin, metronidazole, and IVF Plan/VTE VTE Prophylaxis Ordered?: Yes Plan 1. Acute diverticulitis vs enteritis -General surgery following, recommendations appreciated -Continue with ciprofloxacin and metronidazole day 4 -Continue IVF -Clear liquid diet 2. Asthma -Continue PRN albuterol 3. Morbid obesity -Complicates care 4. DVT ppx -SCD Disposition: Pending clinical improvement VS, I&O, 24H, Fishbone Vital Signs/I&O Vital Signs Date Time Temp Pulse Resp B/P (MAP) Pulse Ox O2 Delivery O2 Flow Rate FiO2 12/24/20 14:00 99.3 103 19 126/98 (107) 94 Room Air I&O- Last 24 Hours up to 6 AM 12/24/20 06:00 Intake Total 0 ml Output Total 1325 ml Balance -1325 ml Laboratory Data 24H LABS Laboratory Tests 2 12/23/20 16:57: Bedside Glucose (Misc Panel) 102 12/23/20 20:57: Bedside Glucose (Misc Panel) 132H 12/24/20 00:08: Bedside Glucose (Misc Panel) 131H 12/24/20 06:33: Immature Granulocyte % (Auto) 1.4, Neutrophils (%) (Auto) 85.0H, Lymphocytes (%) (Auto) 6.8L, Monocytes (%) (Auto) 4.3, Eosinophils (%) (Auto) 2.3, Basophils (%) (Auto) 0.2, Neutrophils # (Auto) 10.6H, Lymphocytes # (Auto) 0.8L, Monocytes # (Auto) 0.5, Eosinophils # (Auto) 0.3, Basophils # (Auto) 0.0, Nucleated Red Blood Cells % (auto) 0.0, Anion Gap 6L, Glomerular Filtration Rate > 60.0, Calcium Level 7.7L, C-Reactive Protein, Quantitative 26.10H 12/24/20 11:21: Bedside Glucose (Misc Panel) 123H 12/24/20 11:52: Lab Scanned Report Miscellaneous Lab CBC/BMP Laboratory Tests 12/24/20 06:33 Microbiology Microbiology 12/21/20 Blood Culture - Preliminary, Resulted No Growth after 48 hours. All Specime... 12/21/20 Blood Culture - Preliminary, Resulted No Growth after 48 hours. All Specime... ARBEN GALLO DO Dec 24, 2020 14:49
[2020-12-24 18:07] LABS: Chitobioside Carbohydrat (ACCA 21 units (0-90); Laminaribioside Carbohyd (ALCA 5 units (0-60); Mannobioside Carbohydrat (AMCA 19 units (0-100); Saccharomyces cerevisiae IgG A 43 units (0-50)
[2020-12-24] MEDS: LORATADINE 10 MG TAB PO SCH (21:01)
[2020-12-24] MEDS: FLUTICASONE PROP 0.05% NASAL SPRAY 16 GM (FLONASE) NARES SCH (21:01)
[2020-12-24 22:00] VITALS: BP 95/66
[2020-12-25] MEDS: KETOROLAC 30 MG/ML 1ML VIAL IV SCH ×4 (00:25→17:33)
[2020-12-25] MEDS: metroNIDAZOLE 500 MG in IV 1 EA IV SCH ×3 (00:25→15:01)
[2020-12-25] MEDS: D5W/0.45% SODIUM CHLORIDE 1,000 ML IV SCH ×2 (05:37→10:57)
[2020-12-25 06:00] VITALS: BP 110/62
[2020-12-25 06:48] LABS: BASO % 0.2 % (0.0-1.0); EOS # 0.4 10^3/uL (0.0-0.5); HEMATOCRIT 27.3 % (36.0-47.0); HEMOGLOBIN 7.7 g/dl (12.0-15.5); LYMPH % 10.7 % (24.0-44.0); MEAN CORPUSCULAR HGB CONC 28.2 g/dl (32.0-36.5); MEAN CORPUSCULAR VOLUME 67.2 fl (80.0-96.0); MONO # 0.6 10^3/uL (0.0-0.8); MONO % 6.7 % (2.0-8.0); NEUTROPHILS # 6.8 10^3/uL (1.5-8.5); NEUTROPHILS % 75.5 % (36.0-66.0); PLATELET COUNT, AUTOMATED 265 10^3/uL (150-450); RED BLOOD COUNT 4.06 10^6/uL (4.00-5.40)
[2020-12-25 07:07] LABS: BLOOD UREA NITROGEN 6 MG/DL (7-18); CALCIUM LEVEL 7.6 MG/DL (8.5-10.1); CARBON DIOXIDE LEVEL 28 MEQ/L (21-32); CHLORIDE LEVEL 106 MEQ/L (98-107); CREATININE FOR GFR 0.56 MG/DL (0.55-1.30); GLOMERULAR FILTRATION RATE > 60.0 (>58); GLUCOSE, FASTING 123 MG/DL (70-100); POTASSIUM SERUM 3.4 MEQ/L (3.5-5.1); SODIUM LEVEL 139 MEQ/L (136-145)
[2020-12-25] MEDS: SYMBICORT 160/4.5MCG INHALER 6GM INH SCH ×2 (07:20→20:44)
[2020-12-25 07:54] LABS: FERRITIN 62 NG/ML (8-252); IRON (FE) 10 UG/DL (50-170); LDH LACTATE DEHYDROGENASE 185 U/L (84-246); PERCENT SATURATION 5.5 % (13.2-45.0); TOTAL IRON BINDING CAPACITY 183 UG/DL (250-450)
[2020-12-25] MEDS ORDERED: POTASSIUM CHLORIDE 10 MEQ SR TABLET PO ONE ×2 (08:00→11:00)
--- NOTE | 2020-12-25 09:07 | IPNPDOC ---
Text Note Date of Service The patient was seen on 12/25/20. NOTE General surgery. Dr. Goyal The patient is sitting up on the side of the bed reporting continued improvement in her abdominal pain. Denies nausea or vomiting. Reports flatus and BM this morning. Tolerating clear liquids. Afebrile Sitting on the side of the bed, currently appears comfortable. Heart rate 94, respiratory rate 18, blood pressure 110/62, 92 % room air. Abdomen is obese, soft, less distended, slight tenderness with palpation in the right upper and mid abdomen areas. WBC 9.0, continues to downtrend CRP 16.8 this morning, continued to downtrend Assessment/plan enteritis versus diverticulitis, SIRS. The patient is reviewed and examined as per Dr. Goyal this morning. The patient is sitting on the side of the bed and continues to report improveme nt in her symptoms, decreasing abdominal pain. She has been afebrile. CRP and WBC continue to downtrend. CT abdomen/pelvis obtained 12/23 did not indicate any abscess or drainable fluid collection. Continue IV fluids, IV antibiotics as per hospitalist. Advance to soft diet. Discussed with the patient that if she tolerates soft diet she will likely be okay for discharge tomorrow from surgical standpoint. Discussed tentative plan for outpatient colonoscopy. Continue to closely monitor. VS,Fishbone, I+O VS, Fishbone, I+O Laboratory Tests 12/25/20 06:16 Vital Signs Date Time Temp Pulse Resp B/P (MAP) Pulse Ox O2 Delivery O2 Flow Rate FiO2 12/25/20 06:00 98.5 94 18 110/62 (78) 92 Room Air I&O- Last 24 Hours up to 6 AM 12/25/20 05:59 Intake Total 240 ml Output Total 1300 ml Balance -1060 ml Tracy Buck Dec 25, 2020 09:07
[2020-12-25] MEDS: CIPROFLOXACIN 400 MG in IV 1 EA IV SCH ×2 (09:50→20:35)
[2020-12-25] MEDS: guaiFENesin ER 600 MG TAB PO SCH ×2 (10:12→20:35)
[2020-12-25] MEDS: BENZONATATE 100 MG CAP PO SCH ×3 (10:12→20:35)
--- NOTE | 2020-12-25 10:41 | IPNPDOC ---
Subjective Date Seen The patient was seen on 12/25/20. Subjective Chief Complaint/HPI Mrs. Lopez is a 45 year old female with morbid obesity and asthma who presents with abdominal pain and found to have acute diverticulitis. This morning, she says it is more abdominal tenderness today. Otherwise, still has a cough. No leukocytosis or fever. Added on Mucinex and Tessalon Perles. Otherwise, hemoglobin continues to drop. Recheck later today. If continues to drop, patient will need a blood transfusion Objective Physical Examination General Exam: Positive: Alert, Cooperative Eye Exam: Negative: Sclera icteric ENT Exam: Positive: Atraumatic Neck Exam: Positive: Supple Chest Exam: Positive: Clear to auscultation Heart Exam: Positive: Tachycardic, Regular Rhythm Abdomen Exam: Positive: Normal bowel sounds, Soft, Tenderness Extremity Exam: Positive: Edema Neuro Exam: Positive: Normal Speech Psych Exam: Positive: Mental status NL, Mood NL Assessment /Plan Assessment Mrs. Lopez is a 45 year old female with morbid obesity and asthma who presents with abdominal pain and found to have acute diverticulitis. General surgery following recommendations appreciated. Continue ciprofloxacin, metronidazole, and IVF Plan/VTE VTE Prophylaxis Ordered?: Yes Plan 1. Acute diverticulitis vs enteritis -General surgery following, recommendations appreciated -Continue with ciprofloxacin and metronidazole day 5 -Continue IVF -Soft diet 2. Asthma -Continue PRN albuterol 3. Morbid obesity -Complicates care 4. DVT ppx -SCD Disposition: Pending hemoglobin stabilization and clinical improvement VS, I&O, 24H, Fishbone Vital Signs/I&O Vital Signs Date Time Temp Pulse Resp B/P (MAP) Pulse Ox O2 Delivery O2 Flow Rate FiO2 12/25/20 06:00 98.5 94 18 110/62 (78) 92 Room Air I&O- Last 24 Hours up to 6 AM 12/25/20 06:00 Intake Total 240 ml Output Total 1300 ml Balance -1060 ml Laboratory Data 24H LABS Laboratory Tests 2 12/24/20 11:21: Bedside Glucose (Misc Panel) 123H 12/24/20 11:52: Lab Scanned Report Miscellaneous Lab 12/24/20 16:10: Bedside Glucose (Misc Panel) 115H 12/25/20 06:16: Immature Granulocyte % (Auto) 2.9, Neutrophils (%) (Auto) 75.5H, Lymphocytes (%) (Auto) 10.7L, Monocytes (%) (Auto) 6.7, Eosinophils (%) (Auto) 4.0H, Basophils (%) (Auto) 0.2, Neutrophils # (Auto) 6.8, Lymphocytes # (Auto) 1.0L, Monocytes # (Auto) 0.6, Eosinophils # (Auto) 0.4, Basophils # (Auto) 0.0, Nucleated Red Blood Cells % (auto) 0.0, Anion Gap 5L, Glomerular Filtration Rate > 60.0, Calcium Level 7.6L, Iron Level 10L, Total Iron Binding Capacity 183L, Transferrin % Saturation 5.5L, Ferritin 62, Lactate Dehydrogenase 185, C- Reactive Protein, Quantitative 16.80H CBC/BMP Laboratory Tests 12/25/20 06:16 Microbiology Microbiology 12/25/20 Stool Occult Blood (AJIT), Received Pending 12/21/20 Blood Culture - Preliminary, Resulted No Growth after 72 hours. All specime... 12/21/20 Blood Culture - Preliminary, Resulted No Growth after 72 hours. All specime... ARBEN GALLO DO Dec 25, 2020 10:41
[2020-12-25 10:59] LABS: MAGNESIUM LEVEL 1.9 MG/DL (1.8-2.4)
[2020-12-25 12:00] LABS: HEMATOCRIT 29.9 % (36.0-47.0); HEMOGLOBIN 8.5 g/dl (12.0-15.5); MEAN CORPUSCULAR HEMOGLOBIN 19.2 pg (27.0-33.0); MEAN CORPUSCULAR HGB CONC 28.4 g/dl (32.0-36.5); MEAN CORPUSCULAR VOLUME 67.5 fl (80.0-96.0); PLATELET COUNT, AUTOMATED 303 10^3/uL (150-450); RED BLOOD COUNT 4.43 10^6/uL (4.00-5.40); WHITE BLOOD COUNT 9.3 10^3/uL (4.0-10.0)
[2020-12-25 14:19] VITALS: BP 130/82
[2020-12-25] MEDS: FLUTICASONE PROP 0.05% NASAL SPRAY 16 GM (FLONASE) NARES SCH (20:35)
[2020-12-25] MEDS: LORATADINE 10 MG TAB PO SCH (20:35)
[2020-12-26] MEDS: KETOROLAC 30 MG/ML 1ML VIAL IV SCH ×3 (00:35→12:00)
[2020-12-26] MEDS: metroNIDAZOLE 500 MG in IV 1 EA IV SCH ×2 (00:35→09:07)
[2020-12-26 06:00] VITALS: BP 103/64
[2020-12-26 06:23] LABS: BASO # 0.1 10^3/uL (0.0-0.2); BASO % 0.6 % (0.0-1.0); EOS # 0.5 10^3/uL (0.0-0.5); EOS % 5.5 % (0.0-3.0); HEMATOCRIT 27.9 % (36.0-47.0); LYMPH # 1.5 10^3/uL (1.5-5.0); LYMPH % 17.5 % (24.0-44.0); MEAN CORPUSCULAR HEMOGLOBIN 19.2 pg (27.0-33.0); MEAN CORPUSCULAR HGB CONC 28.7 g/dl (32.0-36.5); MEAN CORPUSCULAR VOLUME 66.9 fl (80.0-96.0); MONO # 0.6 10^3/uL (0.0-0.8); MONO % 7.1 % (2.0-8.0); NEUTROPHILS # 5.4 10^3/uL (1.5-8.5); NEUTROPHILS % 64.4 % (36.0-66.0); PLATELET COUNT, AUTOMATED 289 10^3/uL (150-450); RED BLOOD COUNT 4.17 10^6/uL (4.00-5.40); WHITE BLOOD COUNT 8.4 10^3/uL (4.0-10.0)
[2020-12-26 06:48] LABS: BLOOD UREA NITROGEN 5 MG/DL (7-18); CALCIUM LEVEL 7.9 MG/DL (8.5-10.1); CARBON DIOXIDE LEVEL 28 MEQ/L (21-32); CHLORIDE LEVEL 108 MEQ/L (98-107); CREATININE FOR GFR 0.46 MG/DL (0.55-1.30); GLOMERULAR FILTRATION RATE > 60.0 (>58); GLUCOSE, FASTING 106 MG/DL (70-100); POTASSIUM SERUM 3.9 MEQ/L (3.5-5.1); SODIUM LEVEL 141 MEQ/L (136-145)
[2020-12-26] MEDS: BENZONATATE 100 MG CAP PO SCH (09:07)
[2020-12-26] MEDS: guaiFENesin ER 600 MG TAB PO SCH (09:07)
[2020-12-26] MEDS: SYMBICORT 160/4.5MCG INHALER 6GM INH SCH (09:08)
[2020-12-26] MEDS ORDERED: BENZ-18 PO (10:08)
[2020-12-26] MEDS ORDERED: ACET650T15 PO (10:08)
[2020-12-26] MEDS ORDERED: CIPR500T39 PO (10:08)
[2020-12-26] MEDS ORDERED: METR-265 PO (10:08)
--- NOTE | 2020-12-26 10:25 | IPNPDOC ---
Text Note Date of Service The patient was seen on 12/26/20. NOTE General surgery. Dr. Goyal The patient is OOB, reports improvement in her abdominal pain. Denies nausea or vomiting. Reports flatus. BM x2 yesterday. Tolerating soft diet. Afebrile VSS Patient is out of bed to the bathroom. WBC 8.4 CRP 11.70 this morning, continued to downtrend Assessment/plan enteritis versus diverticulitis, SIRS. The patient is reviewed and examined as per Dr. Goyal this morning. The patient is sitting on the side of the bed and continues to report improvement in her symptoms, decreasing abdominal pain. She has been afebrile. Leukocytosis resolved CRP continues to downtrend CT abdomen/pelvis obtained 12/23 did not indicate any abscess or drainable fluid collection. IV antibiotics as per hospitalist. Advance to low residue diet Discussed with the patient that if she tolerates low residue diet she will likely be okay for discharge from surgical standpoint. Reviewed tentative plan for outpatient colonoscopy. Continue to closely monitor. VS,[place], I+O VS, Fishbone, I+O Laboratory Tests 12/25/20 11:20 12/26/20 05:47 Vital Signs Date Time Temp Pulse Resp B/P (MAP) Pulse Ox O2 Delivery O2 Flow Rate FiO2 12/26/20 06:00 97.4 79 21 103/64 (77) 96 Room Air I&O- Last 24 Hours up to 6 AM 12/26/20 06:00 Intake Total 4300 ml Output Total 1950 ml Balance 2350 ml Tracy Buck Dec 26, 2020 10:00
[2020-12-26] MEDS: CIPROFLOXACIN 400 MG in IV 1 EA IV SCH (11:23)
--- NOTE | 2020-12-26 21:40 | DS.PDOC ---
Discharge Summary General Date of Admission Dec 21, 2020 at 19:38 Date of Discharge Dec 26, 2020 Specialist/Consultants Involve General surgery, Dr. Goyal Discharge Summary PROCEDURES PERFORMED DURING STAY: None ADMITTING DIAGNOSES: 1. Acute diverticulitis 2. Morbid obesity 3. Asthma 4. Fatty liver 5. L4-L5 central canal stenosis 6. Left ovarian cyst DISCHARGE DIAGNOSES: 1. Acute diverticulitis 2. Morbid obesity 3. Asthma 4. Fatty liver 5. L4-L5 central canal stenosis 6. Left ovarian cyst COMPLICATIONS/CHIEF COMPLAINT: Diverticulitis. HISTORY OF PRESENT ILLNESS: Copied from admitting attending's H&P " 45-year-old obese female with BMI 56.7 with past medical history significant for allergic rhinitis, asthma, right carpal tunnel release, fatty liver, L4-L5 central canal stenosis presents emergency room with acute onset of sharp periumbilical epigastric abdominal pain described as 10 out of 10 on pain scale, stabbing, and constant around 11:45 AM this morning which was unrelenting without fever nausea or vomiting patient took some ibuprofen 800 mg and Tylenol 1000 mg at home without relief. Pain is better when she lays still on her right side in position worse when she tries to move and ambulate without accompanying constipation diarrhea bright red blood per rectum melena black tarry stools, and no prior episodes in the past. Patient denies any alcohol use nonsteroidal anti-inflammatory use in the past.Patient was unable to eat any lunch and had some anorexia. She denies any loss of taste. In the ER she was found to be septic with white count of 19.8 tachycardic 116 bpm and tachypneic with respiratory rate of 22 and low-grade temperature of 100.4 CT abdomen and pelvis shows fatty liver distal left lower quadrant inflammation. Hospitalist was asked to admit the patient for diverticulitis possible early abscess. General surgeon Dr. GOYAL has been consulted. Patient was started on IV Cipro and Flagyl , as needed pain medications, kept n.p.o., IV fluids and placed on hypoglycemic protocol. " HOSPITAL COURSE: General surgery was consulted and following patient. Recommended antibiotics and bowel rest. Patient did well and abdominal pain improved. Patient diet was slowly advanced up to low residue diet. Otherwise, patient's leukocytosis resolved. Last fever was on 12/23. CRP was initially elevated at 30, but has trended downwards. Hemoglobin was on the lower side of normal. Occult stool was positive, but this may be related to the diverticulosis. Patient will be needing outpatient colonoscopy. Today, patient feels well. She is tolerating a diet. She feels ready for home and was subsequently discharged home with an antibiotic course of ciprofloxacin and metronidazole. DISCHARGE MEDICATIONS: Please see below. ALLERGIES: Please see below. PHYSICAL EXAMINATION ON DISCHARGE: VITAL SIGNS: Please see below. GENERAL: Comfortable, in no apparent distress. HEENT: Head normocephalic/atraumatic, EOMI, sclera clear. NECK: Supple. RESPIRATORY: Lungs clear to auscultation bilaterally, no rales, wheeze or rhonchi. CARDIOVASCULAR: Regular rate and rhythm. ABDOMEN: Soft, nontender, no guarding or rebound tenderness. Normal bowel sounds. MUSCLE SKELETAL: Bilateral pitting edema NEUROLOGICAL: CN 312 grossly intact, no focal deficits noted. PSYCHOLOGICAL: Normal mood and affect 19 LABORATORY DATA: Please see below. IMAGING: Radiologist interpretation CT abd/pelvis with IV contrast only 1. There is mild splenomegaly with a maximum span of small centimeters. No focal abnormalities demonstrated. 2. Abnormal appearance of the distal left colon and regional small bowel loops in the left lower quadrant and mid and upper abdominal region associated with a focus of inflammation in the left lower quadrant. No well-defined abscess demonstrated. Differential diagnosis includes diverticulitis, omental infarct and inflammatory bowel disease originating in the small bowel and secondarily involving the descending colon. Concomitant diverticulitis and inflammatory bowel disease also a consideration as is bowel infection. 3. There is a 4.2 cm cyst in the left ovary likely functional. Confirmation with nonemergent pelvic ultrasound could be obtained if clinically desired. Repeat CT abd/pelvis on 12/23/20 Findings are essentially unchanged from the December 21, 2020 study. There is a abnormal loop of descending colon characterized by mural thickening and pericolonic streaking. There is fairly extensive inflammation in the adjacent pericolonic mesenteric fat and there are areas of interloop ascitic fluid in the abdomen left pericolic region and between loops of small bowel which are slightly inflamed as well. There is no evidence of free air or drainable abscess. There is a single right colonic diverticulum and there is diverticulosis of the distal sigmoid colon.. Differential possibilities include diverticulitis, descending colonic malignancy, and inflammatory PROGNOSIS: Good ACTIVITY: As tolerated. DIET: Low residue diet DISCHARGE PLAN: Home DISPOSITION: 01 Home, Self-Care. DISCHARGE INSTRUCTIONS: 1. Follow up with PCP in 1 week 2. Follow up with general surgery (Dr. Goyal) in 1 week 3. Take antibiotics to completion ITEMS TO FOLLOWUP ON ON OUTPATIENT: 1. H&H 2. Outpatient colonoscopy DISCHARGE CONDITION: Stable Total time spent on discharge planning, discharge summary, and medication reconciliation: 45 minutes Vital Signs/I&Os Vital Signs Date Time Temp Pulse Resp B/P (MAP) Pulse Ox O2 Delivery O2 Flow Rate FiO2 12/26/20 06:00 97.4 79 21 103/64 (77) 96 Room Air I&O- Last 24 Hours up to 6 AM 12/26/20 06:00 Intake Total 4300 ml Output Total 1950 ml Balance 2350 ml Laboratory Data Labs 24H Laboratory Tests 2 12/26/20 05:47: Immature Granulocyte % (Auto) 4.9H, Neutrophils (%) (Auto) 64.4, Lymphocytes (%) (Auto) 17.5L, Monocytes (%) (Auto) 7.1, Eosinophils (%) (Auto) 5.5H, Basophils (%) (Auto) 0.6, Neutrophils # (Auto) 5.4, Lymphocytes # (Auto) 1.5, Monocytes # (Auto) 0.6, Eosinophils # (Auto) 0.5, Basophils # (Auto) 0.1, Nucleated Red Blood Cells % (auto) 0.2H, Anion Gap 5L, Glomerular Filtration Rate > 60.0, Calcium Level 7.9L, C-Reactive Protein, Quantitative 11.70H CBC/BMP Laboratory Tests 12/26/20 05:47 Microbiology Microbiology 12/25/20 Stool Occult Blood (AJIT) - Final, Complete 12/21/20 Blood Culture - Preliminary, Resulted No Growth after 72 hours. All specime... 12/21/20 Blood Culture - Preliminary, Resulted No Growth after 72 hours. All specime... Discharge Medications Scheduled Acetaminophen (Acetaminophen ER) 650 Mg Tablet.er, 650 MG PO TID Benzonatate (Benzonatate) 100 Mg Capsule, 100 MG PO TID Budesonide/Formoterol (Symbicort 160-4.5 Mcg Inhaler) 60 Puff/Inhaler Aers, 2 PUFF INH BID, (Reported) Ciprofloxacin HCl (Ciprofloxacin HCl) 500 Mg Tablet, 500 MG PO BID Fluticasone Propionate (Fluticasone Propionate) 16 Gm [place].susp, 2 SPRAY NARES QHS, (Reported) Loratadine (Loratadine) 10 Mg Tablet, 10 MG PO QHS, (Reported) Metronidazole (Metronidazole) 500 Mg Tablet, 500 MG PO TID Scheduled PRN Albuterol Sulf (Albuterol Sulfate) 2.5 Mg/3 Ml Nebu, 1 VIAL INH QID PRN for SO B/WHEEZING, (Reported) Albuterol Sulfate (Ventolin Hfa) 108 Mcg/Act Aer, 2 PUFF INH Q4H PRN for SOB/WHEEZING, (Reported) Allergies Coded Allergies: No Known Allergies (Unverified , 07/01/17) ARBEN GALLO DO Dec 26, 2020 21:40
== END 2020-12-26 13:00 | disposition home or self-care (01) | DRG 244 ==
LOC: M ED 13:39 → M ED INP 19:38 → M MS5PR 21:43
PROVIDERS: ADMIT General Practice; ATTEND Internal Medicine
DX: K57.32 Diverticulitis of large intestine without perforation or abscess without bleeding (principal); Z68.43 Body mass index [BMI] 50.0-59.9, adult; K76.0 Fatty (change of) liver, not elsewhere classified; E66.01 Morbid (severe) obesity due to excess calories; J45.909 Unspecified asthma, uncomplicated; M48.061 Spinal stenosis, lumbar region without neurogenic claudication; K52.9 Noninfective gastroenteritis and colitis, unspecified; N83.202 Unspecified ovarian cyst, left side; G47.33 Obstructive sleep apnea (adult) (pediatric); Z20.822 Contact with and (suspected) exposure to COVID-19; Z79.52 Long term (current) use of systemic steroids; Z79.899 Other long term (current) drug therapy

== ENCOUNTER → 2021-03-15 | Outpatient (CLI) | payer BC ==
[~2021-03-15] MED LIST changes: +ACET650T15 PO; +BENZ-18 PO; +CIPR500T39 PO; +DOXY1CAP62 PO; +FLUTISP NARES; +LORA-674 PO; +METR-265 PO; +PRED20TA PO; +PROBCAP17 PO
== END ==
LOC: M LABSMTC 09:18
PROVIDERS: ATTEND Anesthesiology
DX: Z01.812 Encounter for preprocedural laboratory examination (principal); Z20.822 Contact with and (suspected) exposure to COVID-19

== ENCOUNTER → 2021-04-27 | Outpatient (CLI) | payer BC ==
[~2021-04-27] MED LIST changes: +DOXY-443 PO; -DOXY1CAP62 PO
== END ==
LOC: M LABSMTC 10:30
PROVIDERS: ATTEND Anesthesiology
DX: Z01.812 Encounter for preprocedural laboratory examination (principal); Z11.52 Encounter for screening for COVID-19

== ENCOUNTER 2021-05-01 08:45 | Day surgery (SDC) | payer BC ==
[~2021-05-01] VITALS: Ht 172.7 cm; Wt 156.9 kg
[~2021-05-01 08:45] MED LIST changes: +NS 1,000 ML IV ONE
[2021-05-01] MEDS ORDERED: propofoL 200 MG/20 ML VIAL As Ordered ONE ×2 (08:52→10:41)
[2021-05-01] MEDS ORDERED: LIDOCAINE 2% 100MG/5ML SDV (FOR ANES.) As Ordered ONE (08:52)
--- OUTSIDE RECORDS SUMMARY | 2021-05-01 08:56 | CCD | Continuity of Care Document ---
Author Author Carmen BRUMFIELD PA-C Organization Unknown Address [address] [place] [address] Phone [phone] Care Team Providers Care Joiner Helper Name Role Phone Axel Ramey MD [facility] [phone] Problems Description No Information Available Social History Type Date Description Comments Sex Unknown ETOH Use Rarely consumes alcohol Tobacco Use Start: Unknown Denies Smoking Allergies, Adverse Reactions, Alerts Description No Known Drug Allergies Medications Active Medications SIG Qnty Indications Ordering Provide r Date Oxycodone-Acetaminophen 5-325mg Ta blets 1- 2 tabs by mouth every 4 to 6 hours as needed / post surgical pain(Please DO Not Fill Until 01/09/2021) 5tabs Nilson Lance MD 021 Hydrocodone-Acetaminophen 5-325mg Tablets 1-2 tabs by mouth every 4 to 6 hours as needed / post surgical pain(Please DO Not Fill Until 10/02/2020) 6tabs Nilson Lance MD 08/2020 Symbicort 160-4.5mcg/Act Aerosol Inhale Two Puffs By Mouth Twice A Day Unknown 0 Albuterol Sulfate (2 .5mg/3ML) 0.083% Nebulizer Use 1 Vial By Nebulizer Four Times A Day as Needed Unknown Sidestream Nebulizer/Disposable M isc Use as Directed Unknown Budesonide/Formoterol Fumarate Dihydrate 160-4.5mcg/Act Aerosol Inhale Two Puffs By Mouth Twice A Day Unknown Azithromycin 250mg Tablets Take Two Tablets By Mouth AT Once On The First Day Then Take One Daily Thereafter Unknown Loratadine 10mg Tablets Take One Tablet By Mouth Every Day Unknown Hydrochlorothiazide 25mg Tablets Take One Tablet By Mouth Every Morning as Needed Unknown History Medications Immunizations Description No Information Available Vital Signs Date Vital Result Comment 09/12/2020 4:25pm Body Temperature 96.9 F Height 67 inches 5'7" Weight 373.25 lb BMI (Body Mass Index) 58.5 kg/m2 Results Test Acquired Date Facility Test Result H/L Range Note Laboratory test finding 01/08/2021 In House Covid Rapid Testing NEGATIVE Laboratory test finding 09/21/2020 In House Covid Rapid Testing NEGATIVE Procedures Date Code Description Status 01/09/2021 79202 Endoscopy Wrist W/Release Transv erse Carpal Ligament Completed 12/13/2020 03422 Office/Outpatient Established Mo d MDM 30-39 Min Completed 10/02/2020 35929 Endoscopy Wrist W/Release Transv erse Carpal Ligament Completed 09/12/2020 21827 Office/Outpatient New Moderate M DM 45-59 Minutes Completed 09/12/2020 60708 X-Ray Wrist Complete Completed Medical Devices Description No Information Available Encounters Type Date Location Provider Dx Diagnosis Office Visit 02/15/2021 2:15p [place] Darya Brumfield PA-C Z4 8.811 Encntr for surgical aftcr fol surgery on the nervous sys Office Visit 01/17/2021 1:15p [place] Darya Brumfield PA-C Z4 8.811 Encntr for surgical aftcr fol surgery on the nervous sys Office Visit 12/13/2020 3:00p Mae Lance MD G56.02 Carpal tunnel syndrome, left upper limb Office Visit 10/09/2020 3:30p [place] Nilson Lance MD Z48.811 Encntr for surgical aftcr fol surgery on the nervous sys Office Visit 09/12/2020 4:30p Mae Lance MD G56.03 Carpal tunnel syndrome, bilateral upper limbs Assessments Date Code Description Provider 02/15/2021 Z48.811 Encounter for surgic al aftercare following surgery on the nervous system Darya Brumfield PA-C 01/17/2021 Z48.811 Encounter for surgic al aftercare following surgery on the nervous system Dayra Brumfield PA-C 01/17/2021 Z48.811 Encounter for surgic al aftercare following surgery on the nervous system Nilson Lance MD 01/09/2021 G56.02 Carpal tunnel syndrome, left upp er limb Nilson Lance MD 01/09/2021 Z01.818 Encounter for other preprocedura l examination Nilson Lance MD 01/09/2021 Z01.818 Encounter for other preprocedura l examination Lab 01/09/2021 Z20.828 Contact with and (beaver spected) exposure to other viral communicable diseases Nilson Lance MD 01/09/2021 Z20.828 Contact with and (beaver spected) exposure to other viral communicable diseases Lab 01/08/2021 Z20.828 Contact with and (beaver spected) exposure to other viral communicable diseases Nilson Lance MD 12/13/2020 G56.02 Carpal tunnel syndrome, left upp er limb Nilson Lance MD 10/09/2020 Z48.811 Encounter for surgic al aftercare following surgery on the nervous system Nilson Lnace MD 10/02/2020 G56.01 Carpal tunnel syndrome, right up per limb Nilson Lance MD 09/28/2020 Z01.818 Encounter for other preprocedura l examination Nilson Lance MD 09/28/2020 Z01.818 Encounter for other preprocedura l examination Lab 09/28/2020 Z20.828 Contact with and (beaver spected) exposure to other viral communicable diseases Nilson Lance MD 09/28/2020 Z20.828 Contact with and (beaver spected) exposure to other viral communicable diseases Lab 09/21/2020 Z20.828 Contact w and exposure to oth vi ral communicable diseases Nilson Lance MD 09/13/2020 G56.01 Carpal tunnel syndrome, right up per limb Nilson Lance MD 09/12/2020 G56.03 Carpal tunnel syndrome, bilatera l upper limbs Nilson Lance MD Plan of Treatment 02/15/2021 - Darya Brumfield PA-C* Z48.811 Encounter for surgical aftercare following surgery on the nervous system* Follow up:* PRN Functional Status Description No Information Available Mental Status Description No Information Available Referrals Refer to Reason for Referral Status Appt Date Nilson Lance MD SURGERY PER COTY AT B/S N O AUTH REQUIRED FOR LEFT CTR([id number]) AND THEY HAVE A $5,500 DEDUCTIBLE THAT HAS EDI MET COVERED AT 100% TO SURGERY NT CALL REF #[id number] Created [facility], [place] [address] [phone] Nilson Lance MD SURGERY PER B/S WEB NO AUTH REQUIRED FOR CTR([id number]) AND THEY HAVE A $5,500 DEDUCTIBLE ONCE MET COVERED AT FULL TO SURGERY NT Created [address] [place] [address], [place] [address] [phone] Nilson Lance MD DME NO AUTH REQUIRED FOR APO LLO WRIST BRACE ([id number]) TO CHELY NT Created [address] [place] [address], [address] [place], [place] [id number] [phone]
--- OUTSIDE RECORDS SUMMARY | 2021-05-01 08:56 | CCD | Continuity of Care Document ---
Author Author Carmen AYOUB P.Aziza Organization Unknown Address [address] [place] [address] Phone [phone] Care Team Providers Care Forestry Workers Name Role Phone Axel Ramey MD [facility] [phone] Problems Active Problems Provider Date Asthma without status asthmaticus Harpreet Bunch Onset: 01/24/2010 Obesity Harpreet Bunch Onset: 01/24/2010 Social History Type Date Description Comments Sex Unknown ETOH Use Rarely consumes alcohol Tobacco Use Start: Unknown No Tobacco Use Start: Unknown Patient has never smoked Tobacco Use Start: Unknown The Patient Has Never Vaped Smoking Status Reviewed: 03/23/21 The Patient Has Never Vaped Allergies and adverse reactions Active Allergies Criticality Reaction | Severity Comments Date Seasonal Unable to assess criticality runny nose 04/05/2016 Crab Unable to assess criticality 11/20/2020 Inactive Allergies NKDA Unable to assess criticality 01/14/2010 Medications Active Medications SIG Qnty Indications Ordering Provide r Date Amoxicillin/Clavulanate Potassium 875-125mg Tablets 1 tab by mouth twice a day for 7 days 14tabs J01.90 Enrico Hayes JR., M.D. 03/23/2021 Prednisone 20mg Tablets 1 tablet by mouth twice daily for 5 days 10tabs J45.901 Raya Wilkins JR. 03/23/2021 Albuterol Fha 90mcg/Act Aerosol Unknown Symbicort 160-4.5mcg/Act Aerosol 2 puffs inhaled by mouth every 12 hours Unknown Flonase Allergy Relief 50mcg/Act Suspension 2 sprays each nares daily Unknown Loratadine Unknown History Medications Prednisone 20mg Tablets 1 tab by mouth twice a day for 4 days 8tabs J20.9 Raya Wilkins JR. 12/17/2020 - 12/21/2020 Doxycycline Monohydrate 100mg Caps ules 1 tab by mouth twice a day x10 days 20caps J20.9 Enrico paul JR., M.D. 12/17/2020 - 12/27/2020 Amoxicillin/Clavulanate Potassium 875-125mg Tablets 1 tabs by mouth twice a day as directed for 10 days 20tabs J45.21 Enrico Hayes JR., M.D. 11/20/2020 - 11/30/2020 J01.90 Prednisone 20mg Tablets 1 tab twice a day for 4 days 8tabs J45.21 Enrico Hayes JR., M.D. - 11/24/2020 Immunizations CPT Code Status Date Vaccine Lot # [id number] Given 04/08/2010 Tetanus (Td) Vaccine 7Yrs> U [id number] Vital Signs Date Vital Result Comment 03/23/2021 9:30am BP Systolic 129 mmHg BP Diastolic 90 mmHg Heart Rate 104 /min Respiratory Rate 19 /min O2 % BldC Oximetry 98 % Body Temperature 98.1 F Weight 373.00 lb Height 68 inches 5'8" BMI (Body Mass Index) 56.7 kg/m2 Pain Level 1 12/17/2020 10:29am BP Systolic 152 mmHg BP Diastolic 90 mmHg Heart Rate 110 /min Respiratory Rate 20 /min O2 % BldC Oximetry 98 % Body Temperature 98.4 F Weight 373.00 lb Height 68 inches 5'8" BMI (Body Mass Index) 56.7 kg/m2 Pain Level 2 Results Description No Information Available Procedures Date Code Description Status 03/23/2021 71293 Office/Outpatient Established Mo d MDM 30-39 Min Completed 12/17/2020 56951 Office/Outpatient Established Lo w MDM 20-29 Min Completed 11/20/2020 99928 Office/Outpatient Established Lo w MDM 20-29 Min Completed Medical Devices Description No Information Available Encounters Type Date Location Provider Dx Diagnosis Office Visit 03/23/2021 8:25a Main Office Harsh Presley.A. J0 1.90 Acute sinusitis, unspecified J45.901 Unspecified asthma with (acu te) exacerbation Z20.828 Contact w and exposure to ot h viral communicable diseases Office Visit 12/17/2020 10:45a Main Office TANYA Steen J20.9 Acute bronchitis, unspecified Z20.828 Contact w and exposure to ot h viral communicable diseases Office Visit 11/20/2020 5:05p Main Office Amirah Roldan NP J45. 21 Mild intermittent asthma with (acute) exacerbation J01.90 Acute sinusitis, unspecified Assessments Date Code Description Provider 03/23/2021 J01.90 Acute sinusitis, unspecified James AlfaroA. 03/23/2021 J45.901 Unspecified asthma with (acute) exacerbation James PresleyAEdison 03/23/2021 Z20.828 Contact with and (beaver spected) exposure to other viral communicable diseases James PresleyAEdison 12/17/2020 J20.9 Acute bronchitis, unspecified Re TANYA Harris 12/17/2020 Z20.828 Contact with and (beaver spected) exposure to other viral communicable diseases TANYA Steen 11/20/2020 J45.21 Mild intermittent asthma with (a cute) exacerbation Amirah Roldan NP 11/20/2020 J01.90 Acute sinusitis, unspecified Marycruz Roldan NP Plan of Treatment No Information Available Functional Status Description No Information Available Mental Status Description No Information Available Referrals Description No Information Available
--- OUTSIDE RECORDS SUMMARY | 2021-05-01 08:56 | CCD | Continuity of Care Document ---
Author Author Carmen AYOUB P.Aziza Organization Unknown Address [address] [place] [address] Phone [phone] Care Team Providers Care Bryologist Name Role Phone Axel Ramey MD [facility] [phone] Problems Active Problems Provider Date Asthma without [...] CPT Code Status Date Vaccine Lot # [id number] Given 04/08/2010 Tetanus (Td) Vaccine 7Yrs> U [...] Available Procedures Date Code Description Status 03/23/2021 33163 Office/Outpatient Established Mo d MDM 30-39 Min Completed 12/17/2020 94349 Office/Outpatient Established Lo w MDM 20-29 Min Completed 11/20/2020 30708 Office/Outpatient Established Lo w MDM 20-29 Min [...]
--- OUTSIDE RECORDS SUMMARY | 2021-05-01 08:56 | CCD ---
Continuity of Care Document (CCD) Created on: 02/15/2021 Carmen Lopez External Reference #: [id number] : [id number] Sex: Female Author Author Carmen BRUMFIELD PA-C Organization Unknown Address [address] [place] [address] Phone [phone] Care Team Providers Care Doping Supervisor Name Role Phone Axel Ramey MD [facility] [phone] Problems Description No Information Available Social History [...] NEGATIVE Procedures Date Code Description Status 01/09/2021 10715 Endoscopy Wrist W/Release Transv erse Carpal Ligament Completed 12/13/2020 49600 Office/Outpatient Established Mo d MDM 30-39 Min Completed 10/02/2020 29865 Endoscopy Wrist W/Release Transv erse Carpal Ligament Completed 09/12/2020 37841 Office/Outpatient New Moderate M DM 45-59 Minutes Completed 09/12/2020 83883 X-Ray Wrist Complete Completed Medical Devices Description No Information Available Encounters Type Date Location Provider Dx Diagnosis Office Visit 02/15/2021 2:15p [place] Darya Brumfield PA-C Z4 8.811 Encntr for surgical aftcr fol surgery on the nervous sys Office Visit 01/17/2021 1:15p [place] Darya Brumfield PA-C Z4 8.811 Encntr for surgical aftcr fol surgery on the nervous sys Office Visit 12/13/2020 3:00p Mae Lance MD G56.02 Carpal tunnel syndrome, left upper limb Office Visit 10/09/2020 3:30p [place] Nilson Lance MD Z48.811 Encntr for surgical [...] on the nervous system Nilson Lance MD 10/02/2020 G56.01 Carpal tunnel syndrome, right [...] B/S N O AUTH REQUIRED FOR LEFT CTR(84288) AND THEY HAVE A $5,500 DEDUCTIBLE THAT HAS EDI MET COVERED AT 100% TO SURGERY NT CALL REF #[id number] Created [facility], [place] [address] [phone] Nilson Lance MD SURGERY PER B/S WEB NO AUTH REQUIRED FOR CTR([id number]) AND THEY HAVE A $5,500 DEDUCTIBLE ONCE MET COVERED AT FULL TO SURGERY NT Created [address] [place] [address], [place] [address] [phone] Nilson Lance MD DME NO AUTH REQUIRED FOR APO LLO WRIST BRACE ([id number]) TO CHELY NT Created [address] [place] [address], [address] [place], [place] [id number] [phone]
--- OUTSIDE RECORDS SUMMARY | 2021-05-01 08:57 | CCD ---
Author Author [facility] Organization [facility] Address Unknown Phone Unavailable Care Team Providers Care Lan Specialist Name Role Phone Roldan, Amirah CABLE MACHINE OPERATOR Unavailable Unavailable Roldan, Amirah CABLE MACHINE OPERATOR Unavailable Unavailable Roldan, Amirah CABLE MACHINE OPERATOR Unavailable Unavailable Roldan, Amirah CABLE MACHINE OPERATOR Unavailable Unavailable Roldan, Amirah CABLE MACHINE OPERATOR Unavailable Unavailable Roldan, Amirah CABLE MACHINE OPERATOR Unavailable Unavailable Roldan, Amirah CABLE MACHINE OPERATOR Unavailable Unavailable Roldan, Amirah CABLE MACHINE OPERATOR Unavailable Unavailable Roldan, Amirah CABLE MACHINE OPERATOR Unavailable Unavailable Roldan, Amirah CABLE MACHINE OPERATOR Unavailable Unavailable Roldan, Amirah CABLE MACHINE OPERATOR Unavailable Unavailable Roldan, Amirah CABLE MACHINE OPERATOR Unavailable Unavailable Roldan, Amirah CABLE MACHINE OPERATOR Unavailable Unavailable Trever, L Susan CABLE MACHINE OPERATOR Unavailable Unavailable Trever, L Susan CABLE MACHINE OPERATOR Unavailable Unavailable Trever, L Susan CABLE MACHINE OPERATOR Unavailable Unavailable Trever, L Susan CABLE MACHINE OPERATOR Unavailable Unavailable Trever, L Susan CABLE MACHINE OPERATOR Unavailable Unavailable Trever, L Susan CABLE MACHINE OPERATOR Unavailable Unavailable Trever, L Susan CABLE MACHINE OPERATOR Unavailable Unavailable Trever, L Susan CABLE MACHINE OPERATOR Unavailable Unavailable Trever, L Susan CABLE MACHINE OPERATOR Unavailable Unavailable Trever, L Susan CABLE MACHINE OPERATOR Unavailable Unavailable Trever, L Susan CABLE MACHINE OPERATOR Unavailable Unavailable Trever, L Susan CABLE MACHINE OPERATOR Unavailable Unavailable Trever, L Susan CABLE MACHINE OPERATOR Unavailable Unavailable Trever, L Susan CABLE MACHINE OPERATOR Unavailable Unavailable Trever, L Susan CABLE MACHINE OPERATOR Unavailable Unavailable Trever, L Susan CABLE MACHINE OPERATOR Unavailable Unavailable Trever, L Susan CABLE MACHINE OPERATOR Unavailable Unavailable Trever, L Susan CABLE MACHINE OPERATOR Unavailable Unavailable Trever, L Susan CABLE MACHINE OPERATOR Unavailable Unavailable Trever, L Susan CABLE MACHINE OPERATOR Unavailable Unavailable Trever, L Susan CABLE MACHINE OPERATOR Unavailable Unavailable Trever, L Susan CABLE MACHINE OPERATOR Unavailable Unavailable Trever, L Susan CABLE MACHINE OPERATOR Unavailable Unavailable Trever, L Susan CABLE MACHINE OPERATOR Unavailable Unavailable Trever, L Susan CABLE MACHINE OPERATOR Unavailable Unavailable KATHERINEUGAAlida MD Unavailable Unavailable KATHERINEUGAAlida MD Unavailable Unavailable BARDOUGUGAAlida MD Unavailable Unavailable BARAYUGA, Alida WREN MD Unavailable Unavailable BARAYUGAAlida MD Unavailable Unavailable BARAYUGAAlida MD Unavailable Unavailable BARAYUGAAlida MD Unavailable Unavailable BARAYUGAAlida MD Unavailable Unavailable BARAYUGA, Alida WREN MD Unavailable Unavailable BARAYUGA, Alida WREN MD Unavailable Unavailable BARAYUGAAlida MD Unavailable Unavailable BARAYUGAAlida MD Unavailable Unavailable KATHERINEUGAAlida MD Unavailable Unavailable BARAYUGAAlida MD Unavailable Unavailable BARAYUGAAlida MD Unavailable Unavailable BARAYUGAAlida MD Unavailable Unavailable BARAYUGAAlida MD Unavailable Unavailable BARAYUGAAlida MD Unavailable Unavailable BARAYUGAAlida MD Unavailable Unavailable BARAYUGAAlida MD Unavailable Unavailable BARAYUGAAlida MD Unavailable Unavailable BARAYUGAAlida MD Unavailable Unavailable BARAYUGAAlida MD Unavailable Unavailable BARDOUGUGAAlida MD Unavailable Unavailable BARDOUGUGAAlida MD Unavailable Unavailable BARDOUGUGAAlida MD Unavailable Unavailable BARAYUGAAlida MD Unavailable Unavailable BARAYUGAAlida MD Unavailable Unavailable BARAYUGAAlida MD Unavailable Unavailable BARAYUGAAlida MD Unavailable Unavailable KATHERINEUGAAlida MD Unavailable Unavailable KATHERINEUGAAlida MD Unavailable Unavailable BARDOUGUGAAlida MD Unavailable Unavailable BARAYUGAAlida MD Unavailable Unavailable BARODUGUGAAlida MD Unavailable Unavailable Kai Lance MD Unavailable Unavailable Kai Lance MD Unavailable Unavailable Kai Lance MD Unavailable Unavailable Kai Lance MD Unavailable Unavailable Kai Lance MD Unavailable Unavailable Kai Lance MD Unavailable Unavailable Kai Lance MD Unavailable Unavailable Lance, Kai Devine MD Unavailable Unavailable Lance, Kai Devine MD Unavailable Unavailable Lance, L Nilson SANTO Unavailable Unavailable Lance, Kai Devine MD Unavailable Unavailable Lance, Kai Devine MD Unavailable Unavailable Lance, L Nilson SANTO Unavailable Unavailable Lance, Kai Devine MD Unavailable Unavailable Lance, Kai Devine MD Unavailable Unavailable Lance, Kai Devine MD Unavailable Unavailable Lance, Kai Devine MD Unavailable Unavailable Lance, Kai Devine MD Unavailable Unavailable Lance, Kai Devine MD Unavailable Unavailable Lance, L Nilson SANTO Unavailable Unavailable Lance, L Nilson SANTO Unavailable Unavailable Lance, L Nilson SANTO Unavailable Unavailable Lance, L Nilson SANTO Unavailable Unavailable Lance, L Nilson SANTO Unavailable Unavailable Lanec, L Nilson SANTO Unavailable Unavailable Lance, L Nilson SANTO Unavailable Unavailable Lance, L Nilson SANTO Unavailable Unavailable Lance, L Nilson SANTO Unavailable Unavailable Lance, L Nilson SANTO Unavailable Unavailable Lance, Kai Devine MD Unavailable Unavailable Lance, Kai Devine MD Unavailable Unavailable Lance, Kai Devine MD Unavailable Unavailable Lance, Kai Devine MD Unavailable Unavailable Lance, Kai Devine MD Unavailable Unavailable Lance, Kai Devine MD Unavailable Unavailable Lance, L Nilson SANTO Unavailable Unavailable Lance, Kai Devine MD Unavailable Unavailable Lance, Kai Devine MD Unavailable Unavailable Lance, Kai Devine MD Unavailable Unavailable Lance, Kai Devine MD Unavailable Unavailable Lance, L Nilson SANTO Unavailable Unavailable Lance, Kai Devine MD Unavailable Unavailable Lance, L Nilson SANTO Unavailable Unavailable Lance, L Nilson SANTO Unavailable Unavailable Lance, Kai Devine MD Unavailable Unavailable Lance, Kai Devine MD Unavailable Unavailable Lance, Kai Devine MD Unavailable Unavailable Lance, Kai Devine MD Unavailable Unavailable Lance, Kai Devine MD Unavailable Unavailable Lance, Kai Devine MD Unavailable Unavailable MEGA, MARY PA Unavailable Unavailable MEGA, MARY PA Unavailable Unavailable MEGA, MARY PA Unavailable Unavailable MEGA, MARY PA Unavailable Unavailable MEGA, MARY PA Unavailable Unavailable MEGA, MARY PA Unavailable Unavailable MEGA, MARY PA Unavailable Unavailable MEGA, MARY PA Unavailable Unavailable MEGA, MARY PA Unavailable Unavailable MEGA, MARY PA Unavailable Unavailable MEGA, MARY PA Unavailable Unavailable MEGA, MARY PA Unavailable Unavailable MEGA, MARY PA Unavailable Unavailable MEGA, MARY PA Unavailable Unavailable MEGA, MARY PA Unavailable Unavailable MEGA, MARY PA Unavailable Unavailable MEGA, MARY PA Unavailable Unavailable MEGA, MARY PA Unavailable Unavailable MEGA, MARY PA Unavailable Unavailable MEGA, MARY PA Unavailable Unavailable MEGA, MARY PA Unavailable Unavailable MEGA, MARY PA Unavailable Unavailable MEGA, MARY PA Unavailable Unavailable MEGA, MARY PA Unavailable Unavailable MEGA, MARY PA Unavailable Unavailable MEGA, MARY PA Unavailable Unavailable MEGA, MARY PA Unavailable Unavailable MEGA, MARY PA Unavailable Unavailable MEGA, MARY PA Unavailable Unavailable EMGA, MARY PA Unavailable Unavailable MEGA, MARY PA Unavailable Unavailable MEGA, MARY PA Unavailable Unavailable MEGA, MARY PA Unavailable Unavailable MEGA, MARY PA Unavailable Unavailable MEGA, MARY PA Unavailable Unavailable MEGA, MARY PA Unavailable Unavailable Brumfield, M Barratt PA Unavailable Unavailable Brumfield, M Barratt PA Unavailable Unavailable Brumfield, M Barratt PA Unavailable Unavailable Brumfield, M Barratt PA Unavailable Unavailable Brumfield, M Barratt PA Unavailable Unavailable Brumfield, M Barratt PA Unavailable Unavailable Brumfield, M Barratt PA Unavailable Unavailable Brumfield, M Barratt PA Unavailable Unavailable Brumfield, M Barratt PA Unavailable Unavailable Brumfield, M Barratt PA Unavailable Unavailable Brumfield, M Barratt PA Unavailable Unavailable Brumfield, M Barratt PA Unavailable Unavailable Brumfield, M Barratt PA Unavailable Unavailable Brumfield, M Barratt PA Unavailable Unavailable Brumfield, M Barratt PA Unavailable Unavailable Brumfield, M Barratt PA Unavailable Unavailable Brumfield, M Barratt PA Unavailable Unavailable Brumfield, M Barratt PA Unavailable Unavailable Brumfield, M Barratt PA Unavailable Unavailable Brumfield, M Barratt PA Unavailable Unavailable Brumfield, M Barratt PA Unavailable Unavailable Brumfield, M Barratt PA Unavailable Unavailable Brumfield, M Barratt PA Unavailable Unavailable Brumfield, M Barratt PA Unavailable Unavailable Brumfield, M Barratt PA Unavailable Unavailable Brumfield, M Barratt PA Unavailable Unavailable Brumfield, M Barratt PA Unavailable Unavailable Brumfield, M Barratt PA Unavailable Unavailable Brumfield, M Barratt PA Unavailable Unavailable RING, K LYUDMILA PA Unavailable Unavailable RING, K LYUDMILA PA Unavailable Unavailable RING, K LYUDMILA PA Unavailable Unavailable RING, K LYUDMILA PA Unavailable Unavailable RING, K LYUDMILA PA Unavailable Unavailable RING, K LYUDMILA PA Unavailable Unavailable RING, K LYUDMILA PA Unavailable Unavailable RING, K LYUDMILA PA Unavailable Unavailable RING, K LYUDMILA PA Unavailable Unavailable RING, K LYUDMILA PA Unavailable Unavailable RING, K LYUDMILA PA Unavailable Unavailable RING, K LYUDMILA PA Unavailable Unavailable RING, K LYUDMLIA PA Unavailable Unavailable RING, K LYUDMILA PA Unavailable Unavailable RING, K LYUDMILA PA Unavailable Unavailable RING, K LYUDMILA PA Unavailable Unavailable RING, K LYUDMILA PA Unavailable Unavailable RING, K LYUDMILA PA Unavailable Unavailable RING, K LYUDMILA PA Unavailable Unavailable RING, K LYUDMILA PA Unavailable Unavailable RING, K LYUDMILA PA Unavailable Unavailable RING, K LUYDMILA PA Unavailable Unavailable Re-disclosure Warning The records that you are about to access may contain information from federally-assisted alcohol or drug abuse programs. If such information is present, then the following federally mandated warning applies: This information has been disclosed to you from records protected by federal confidentiality rules (42 CFR part 2). The federal rules prohibit you from making any further disclosure of this information unless further disclosure is expressly permitted by the written consent of the person to whom it pertains or as otherwise permitted by 42 CFR part 2. A general authorization for the release of medical or other information is NOT sufficient for this purpose. The Federal rules restrict any use of the information to criminally investigate or prosecute any alcohol or drug abuse patient.The records that you are about to access may contain highly sensitive health information, the redisclosure of which is protected by Article 27-F of the [facility] Public Health law. If you continue you may have access to information: Regarding HIV / AIDS; Provided by facilities licensed or operated by the [facility] Office of Mental Health; or Provided by the [facility] Office for People With Developmental Disabilities. If such information is present, then the following [facility] mandated warning applies: This information has been disclosed to you from confidential records which are protected by state law. State law prohibits you from making any further disclosure of this information without the specific written consent of the person to whom it pertains, or as otherwise permitted by law. Any unauthorized further disclosure in violation of state law may result in a fine or fpc sentence or both. A general authorization for the release of medical or other information is NOT sufficient authorization for further disc losure. Allergies and Adverse Reactions Type Description Substance Reaction Status Data Source(s ) Drug Allergy NKDA NKDA [facility] ([facility]) Family History Family Member Name Family Member Gender Family Member Status Date o f Status Description Data Source(s) Unknown Unknown Problem [facility] ([facility]) mother Unknown Male Problem [facility] ([facility] Encounters Encounter Providers Location Date Indications Data Source(s ) Outpatient Attender: MARY Reynoldsa ry 03/23/2021 08:25:00 AM EDT [facility] Office Visit Attender: Darya MARTÍNEZ Physical Therapy 02:15:00 PM EDT [facility] ([facility]) Office Visit Attender: Darya MARTÍNEZ Physical Therapy 01:15:00 PM EDT [facility] ([facility]) Outpatient Attender: HOLGER Mohr/Nery/Jesus/ Reindl 01/03/2021 09:30:00 AM EDT [facility] ([facility]) Outpatient Attender: LYUDMILA [facility] 12/17/2020 10:45:00 AM EDT [facility] ([facility]) Outpatient Attender: Nilson Lance MD Physical Therapy 12/13/2020 0 3:00:00 PM EDT [facility] ([facility]) Outpatient Attender: Amirah matthews 11/20/2020 05:05:00 PM EDT [facility] ([facility]) Office Visit Attender: Nilson Lance MD Physical Therapy 2020 03:30:00 PM EDT [facility] ([facility]) Outpatient Attender: Susan Mohr/[place]/Jesus/Reindl 10/04/2020 09:30:00 AM EDT [facility] ([facility]) Outpatient Attender: Nilson Lance MD Physical Therapy 09/12/2020 0 4:30:00 PM EDT [facility] ([facility]) Immunizations Vaccine Date Status Description Data Source(s) COVID-19 VACCINE Moderna 04/18/2021 12:00:00 AM EST completed [facility] Vaccine Series Complete: YESThis Data wa s Submitted to [facility] Via [employer]. COVID-19 VACCINE Moderna 07/05/2020 12:00:00 AM EST completed [facility] Vaccine Series Complete: YESThis Data wa s Submitted to [facility] Via [employer]. COVID-19 VACCINE Moderna 06/07/2020 12:00:00 AM EST completed [facility] Vaccine Series Complete: NOThis Data was Submitted to [facility] Via [employer]. Medications Medication Brand Name Start Date Product Form Dose Route Admi nistrative Instructions Pharmacy Instructions Status Indications Reaction Description Data Source(s) NEBULIZER 04/28/2021 12:00:00 AM EST misc 1 DIRECTED DIRECTED SOLD: 04/28/2021 [facility] 100 mcg/0.5 mL 04/18/2021 12:00:00 AM EST suspension 0 INJECT DIRECTED (THIRD DOSE) INJECT DIRECTED (THIRD DOSE) SOLD: 04/18/2021 [facility] NEBULIZER ACCESSORIES 04/09/2021 12:00:00 AM EST misc 2 USE WITH NEBULIZER DIRECTED USE WITH NEBULIZER DIRECTED SOLD: 04/18/2021 [facility] Amoxicillin 875 MG / Clavulanate 125 MG Oral Tablet Am oxicillin/Clavulanate Potassium 03/23/2021 12:00:00 AM EDT ORAL active [facility] ([facility]) Prednisone 20 MG Oral Tablet Prednisone 03/23/2021 12:00:00 AM EDT ORAL active [facility] ([facility]) 20 mg 03/23/2021 12:00:00 AM EDT tablet 10 TAKE ONE TABLET BY MOUTH TWICE A DAY FOR 5 DAYS TAKE ONE TABLET BY MOUTH TWICE A DAY FOR 5 DAYS SOLD: 2020 [facility] Amoxicillin 875 MG / Clavulanate 125 MG Oral Tablet 87 5-125 mg AMOXICILLIN/POTASSIUM CLAV 03/23/2021 12:00:00 AM EDT tablet 14 TAKE ONE TABLET BY MOUTH TWICE A DAY FOR 7 DAYS TAKE ONE TABLET BY MOUTH TWICE A DAY FOR 7 DAYS SOLD: 03/23/2021 [facility] SUPREP BOWEL PREP KIT 17.5-3.13-1.6 gram SODIUM, POTASSIUM,M AG SULFATES 03/11/2021 12:00:00 AM EDT recon soln 354 TAKE DIRECTED PETRA E DIRECTED SOLD: 03/14/2021 [facility] Acetaminophen 325 MG / Oxycodone Hydrochloride 5 MG Or al Tablet Oxycodone-Acetaminophen 01/09/2021 12:00:00 AM EDT ORAL active [facility] ([facility]) 650 mg 12/26/2020 12:00:00 AM EDT tablet extended release 63 TAKE ONE TABLET BY MOUTH THREE TIMES A DAY TAKE ONE TABLET BY MOUTH THREE TIMES A DAY SOLD: 12/26/2020 [facility] benzonatate 100 MG Oral Capsule BENZONATATE 12/26/2020 12:00:00 AM EDT capsule 21 TAKE ONE CAPSULE BY MOUTH THREE TIMES A DAY TAKE ONE CAPSULE BY MOUTH THREE TIMES A DAY SOLD: 12/26/2020 [facility] 500 mg 12/26/2020 12:00:00 AM EDT tablet 14 TAKE ONE TABLET BY MOUTH TWICE A DAY TAKE ONE TABLET BY MOUTH TWICE A DAY SOLD: 12/26/2020 [facility] Metronidazole 500 MG Oral Tablet METRONIDAZOLE 12/26/2020 12:0 0:00 AM EDT tablet 21 TAKE ONE TABLET BY MOUTH THREE T IMES A DAY TAKE ONE TABLET BY MOUTH THREE TIMES A DAY SOLD: 12/26/2020 [facility] Doxycycline Monohydrate 100 MG Oral Capsule Doxycycline [place] hydrate 12/17/2020 12:00:00 AM EDT ORAL completed [facility] ([facility]) Prednisone 20 MG Oral Tablet Prednisone 12/17/2020 12:00:00 AM EDT ORAL completed [facility] ([facility]) 100 mg 12/17/2020 12:00:00 AM EDT capsule 20 TAKE ONE CAPSULE BY MOUTH TWICE A DAY FOR 10 DAYS TAKE ONE CAPSULE BY MOUTH TWICE A DAY FOR 10 DAYS SOLD : 12/17/2020 [facility] 20 mg 12/17/2020 12:00:00 AM EDT tablet 8 TAKE ONE TABLET BY MOUTH TWICE A DAY FOR 4 DAYS TAKE ONE TABLET BY MOUTH TWICE A DAY FOR 4 DAYS SOLD: 2020 [facility] Amoxicillin 875 MG / Clavulanate 125 MG Oral Tablet 87 5-125 mg AMOXICILLIN/POTASSIUM CLAV 11/20/2020 12:00:00 AM EDT tablet 20 TAKE ONE TABLET BY MOUTH TWICE A DAY FOR 10 DAYS TAKE ONE TABLET BY MOUTH TWICE A DAY FOR 10 DAYS SOLD: 11/20/2020 [facility] 20 mg 11/20/2020 12:00:00 AM EDT tablet 8 TAKE ONE TABLET BY MOUTH TWICE A DAY FOR 4 DAYS TAKE ONE TABLET BY MOUTH TWICE A DAY FOR 4 DAYS SOLD: 2020 [facility] Prednisone 20 MG Oral Tablet Prednisone 11/20/2020 12:00:00 AM EDT completed [facility] ([facility]) Amoxicillin 875 MG / Clavulanate 125 MG Oral Tablet Am oxicillin/Clavulanate Potassium 11/20/2020 12:00:00 AM EDT ORAL completed [facility] ([facility]) 160-4.5 mcg/actuation 10/17/2020 12:00:00 AM EDT HFA aerosol inhaler 10 INHALE TWO PUFFS BY MOUTH TWICE A DAY INHALE TWO PUFFS BY MOUTH TWICE A DAY SOLD: 10/17/2020 [facility] Acetaminophen 325 MG / Hydrocodone Bitartrate 5 MG Ora l Tablet Hydrocodone-Acetaminophen 10/02/2020 12:00:00 AM EDT ORAL active [facility] ([facility]) 2.5 mg /3 mL (0.083 %) 07/18/2020 12:00:00 AM EST solu tion for nebulization 375 USE 1 VIAL BY NEBULIZER FOUR TIMES A DAY NEEDED USE 1 VIAL BY NEBULIZER FOUR TIMES A DAY NEEDED SOLD: 11/23/2020 [facility] 2.5 mg /3 mL (0.083 %) 07/18/2020 12:00:00 AM EST solu tion for nebulization 375 USE 1 VIAL BY NEBULIZER FOUR TIMES A DAY NEEDED USE 1 VIAL BY NEBULIZER FOUR TIMES A DAY NEEDED SOLD: 2020 [facility] 2.5 mg /3 mL (0.083 %) 07/18/2020 12:00:00 AM EST solu tion for nebulization 375 USE 1 VIAL BY NEBULIZER FOUR TIMES A DAY NEEDED USE 1 VIAL BY NEBULIZER FOUR TIMES A DAY NEEDED SOLD: 03/17/2021 [facility] 90 mcg/actuation 04/02/2020 12:00:00 AM EST HFA aerosol inha ler 8 INHALE TWO PUFFS BY MOUTH FOUR TIMES A DAY NEEDED INHALE TWO PUFFS BY MOUTH FOUR TIMES A DAY NEEDED SOLD: 06/11/2020 [facility] 90 mcg/actuation 04/02/2020 12:00:00 AM EST HFA aerosol inha ler 8 INHALE TWO PUFFS BY MOUTH FOUR TIMES A DAY NEEDED INHALE TWO PUFFS BY MOUTH FOUR TIMES A DAY NEEDED SOLD: 04/02/2020 [facility] 60 ACTUAT Albuterol 0.09 MG/ACTUAT Metered Dose Inhaler Albu terol Sulfate HFA 04/02/2020 12:00:00 AM EST RESPIRATORY active [facility] ([facility] ) 20 mg 04/02/2020 12:00:00 AM EST tablet 5 TAKE ONE TABLET BY MOUTH EVERY DAY FOR 5 DAYS TAKE ONE TABLET BY MOUTH EVERY DAY FOR 5 DAYS SOLD: 04/02/2020 [facility] 10 mg 02/14/2020 12:00:00 AM EDT tablet 90 TAKE ONE TABLET BY MOUTH EVERY DAY TAKE ONE TABLET BY MOUTH EVERY DAY SOLD: 06/11/2020 [facility] NEBULIZER 02/14/2020 12:00:00 AM EDT misc 1 USE DIRECTED USE DIRECTED SOLD: 06/01/2020 [facility] 160-4.5 mcg/actuation 09/22/2019 12:00:00 AM EDT HFA aerosol inhaler 10 INHALE TWO PUFFS BY MOUTH TWICE A DAY INHALE TWO PUFFS BY MOUTH TWICE A DAY SOLD: 07/24/2020 [facility] 160-4.5 mcg/actuation 09/22/2019 12:00:00 AM EDT HFA aerosol inhaler 10 INHALE TWO PUFFS BY MOUTH TWICE A DAY INHALE TWO PUFFS BY MOUTH TWICE A DAY SOLD: 09/21/2020 [facility] 160-4.5 mcg/actuation 09/22/2019 12:00:00 AM EDT HFA aerosol inhaler 10 INHALE TWO PUFFS BY MOUTH TWICE A DAY INHALE TWO PUFFS BY MOUTH TWICE A DAY SOLD: 04/02/2020 [facility] 160-4.5 mcg/actuation 09/22/2019 12:00:00 AM EDT HFA aerosol inhaler 10 INHALE TWO PUFFS BY MOUTH TWICE A DAY INHALE TWO PUFFS BY MOUTH TWICE A DAY SOLD: 06/01/2020 [facility] Insurance Providers Payer name Policy type / Coverage type Policy ID Covered green party ID Covered green party's relationship to chacon Policy [place] Plan Information [employer] Maintenance Organization (HMO) [place] [id number] Self [id number] [employer] (HMO) [place] [id number] Self [id number] [employer] Maintenance [employer] (HMO) [id number] Self [employer] Maintenance Organization (HMO) [place] [id number] Self [id number] [employer] Maintenance [employer] (HMO) [place] [id number] Self [id number] [employer] Maintenance [employer] (HMO) [place] [id number] Self [id number] [employer] (HMO) [place] [id number] Self [id number] [employer] (HMO) [place] [id number] Self [id number] [employer] Maintenance [employer] (HMO) [place] [id number] Self [id number] [facility] [id number] SP [id number] [facility] [id number] SP [id number] [facility] Health Maintenance Organization (O) [id number] Self [id number] P [employer] [id number] Self [id number] [facility] [id number] SP [id number] [facility] [id number] SP [id number] [facility] Health Maintenance Organization (O) [id number] Self [id number] [facility] O [id number] S [id number] [facility] O [id number] S [id number] [facility] [id number] SP [id number] [facility] [id number] SP [id number] [facility] Commercial [id number] Self [id number] [facility] Commercial [id number] Self [id number] P Commercial [id number] Self [id number] P Commercial [id number] Self [id number] P Commercial [id number] Self [id number] P Commercial [id number] Self [id number] [facility] Commercial [id number] Self [employer] [id number] SP [id number] [employer] [id number] SP [id number] OTHER WORKERS COMPENSATION [id number] SP [id number] SELF PAY UNAVAILABLE SP [facility] [id number] SP [id number] [employer] [place] PPO [place]/307 [id number] SP [id number] [employer] [place] PPO 302/307 [id number] SP [id number] [facility] [id number] SP [id number] [facility] Health Maintenance Organization ([facility] [id number] Self [id number] [employer] Commercial [id number] Self [id number] [employer] [id number] Self [id number] [facility] O [id number] S [id number] ANSI-Not a Secondary Insurance [id number] [facility] Health Maintenance Organization ([facility]) [id number] Self [id number] [facility] Health Maintenance Organization ([facility]) [id number] Self [id number] Problems, Conditions, and Diagnoses Code Display Name Description Problem Type Effective Dates Data Source(s) 62630876 Allergic asthma without status asthmatic us Allergic asthma without status asthmaticus Problem 12/27/2020 12:00:00 AM EDT [facility] ([facility]) Surgeries/Procedures Procedure Description Date Indications Data Source(s) OFFICE OUTPATIENT VISIT 25 MINUTES 03/23/2021 12:00:00 AM EDT [facility] ([facility]) Endoscopy Wrist W/Release Transverse Carpal Ligament 01/09/2021 12:00:00 AM EDT [facility] ([facility]) OFFICE OUTPATIENT NEW 45 MINUTES 01/03/2021 12:00:00 A M EDT [facility] ([facility]) OFFICE OUTPATIENT VISIT 15 MINUTES 12/17/2020 12:00:00 AM EDT [facility] ([facility]) OFFICE OUTPATIENT VISIT 25 MINUTES 12/13/2020 12:00:00 AM EDT [facility] ([facility]) OFFICE OUTPATIENT VISIT 15 MINUTES 11/20/2020 12:00:00 AM EDT [facility] ([facility]) Spirometry 10/04/2020 12:00:00 AM EDT M [facility]ENT ([facility]) OFFICE OUTPATIENT VISIT 15 MINUTES 10/04/2020 12:00:00 AM EDT [facility] ([facility]) Endoscopy Wrist W/Release Transverse Carpal Ligament 10/02/2020 12:00:00 AM EDT [facility] ([facility]) RADEX WRIST COMPLETE MINIMUM 3 VIEWS 09/12/2020 12:00: 00 AM EDT [facility] ([facility]) OFFICE OUTPATIENT NEW 45 MINUTES 09/12/2020 12:00:00 A M EDT [facility] ([facility]) Results ID Date Data Source [id number] 04/27/2021 10:02:00 AM EST [facility] Name Value Range Interpretation Code Description Data Juliann rce(s) Supporting Document(s) SARS-CoV-2 (COVID-19) RNA [Presence] in Respiratory specimen by RAJENDRA with probe detection Not Detected [facility] This lab was ordered by [facility] and reported by [employer] ID Date Data Source [id number] 03/23/2021 12:00:00 AM EDT [facility] Name Value Range Interpretation Code Description Data Juliann rce(s) Supporting Document(s) SARS-CoV2 Rapid Antigen Negative [facility] ID Date Data Source [id number] 03/15/2021 09:05:00 AM EDT [facility] Name Value Range Interpretation Code Description Data Juliann rce(s) Supporting Document(s) SARS-CoV-2 (COVID-19) RNA [Presence] in Respiratory specimen by RAJENDRA with probe detection Not Detected [facility] This lab was ordered by [facility] and reported by [employer] ID Date Data Source [id number] 01/08/2021 10:52:00 AM EDT [facility] ([facility] ) Name Value Range Interpretation Code Description Data Juliann rce(s) Supporting Document(s) Covid Rapid Testing Laboratory test result [facility] ([facility] ) ID Date Data Source [id number] 01/08/2021 12:00:00 AM EDT [facility] Name Value Range Interpretation Code Description Data Juliann rce(s) Supporting Document(s) Covid Rapid Testing Negative [facility] This lab was ordered by [facility] and re ported by [facility]. ID Date Data Source [id number] 12/21/2020 05:24:00 PM EDT [facility] Name Value Range Interpretation Code Description Data Juliann rce(s) Supporting Document(s) SARS coronavirus 2 RNA [Presence] in Res piratory specimen by RAJENDRA with probe detection NEGATIVE [facility] This lab was ordered by [facility] a nd reported by [facility]. ID Date Data Source [id number] 12/17/2020 12:00:00 AM EDT [facility] Name Value Range Interpretation Code Description Data Juliann rce(s) Supporting Document(s) SARS-CoV2 Rapid Antigen Negative [facility] This lab was reported by [facility] Lexi Lori. ID Date Data Source [id number] 10/04/2020 07:38:00 AM EDT [facility] ([facility], ) Name Value Range Interpretation Code Description Data Juliann rce(s) Supporting Document(s) FVC-Pred 3.86 L [facility] ([facility], ) PDFReport Laboratory test result [facility] ([facility], ) FVC-Pre 4.05 L [facility] ([facility], ) FVC-%Pred-Pre 105 L [facility] ([facility], ) FVC-LLN 3.12 L [facility] ([facility]) Fev1-Pred 3.09 L [facility] ([facility], ) Fev1-Pre 3.52 L [facility] ([facility]) Fev1-LLN 2.46 L [facility] ([facility]) Fev1-%Pred-Pre 113 L [facility] ([facility]) Fev6-%Pred-Pre 107 L [facility] ([facility]) Fev6-Pred 3.77 L [facility] ([facility]) Fev6-Pre 4.05 L [facility] ([facility]) Fev6-LLN 3.05 L [facility] ([facility]) Euo7zxr-Qjar 81 % [facility] ([facility]) Mld2hra-%Pred-Pre 107 % [facility] ([facility]) Mqn3cuq-Nta 87 % [facility] ([facility]) Ltg4vsm-UJR 71 % [facility] ([facility]) Ckw2tdg-Etu 100 % [facility] ([facility]) Emm4eku-Anqj 98 % [facility] ([facility]) Dhv4zxi-%Pred-Pre 102 % [facility] ([facility]) FEFMax-Pre 6.92 L/E/sec [facility] ([facility]) FEFMax-Pred 7.17 L/E/sec [facility] ([facility]) FEFMax-LLN 5.34 L/E/sec [facility] ([facility]) Exi0875-Rzif 3.03 L/E/sec [facility] ([facility]) FEFMax-%Pred-Pre 96 L/E/sec [facility] ([facility]) Non9142-Ugk 4.28 L/E/sec [facility] ([facility]) Zul3201-%Pred-Pre 141 L/E/sec [facility] ([facility]) ExpTime-Pre 3.92 sec [facility] ([facility]) Iro3307-BUU 1.71 L/E/sec [facility] ([facility]) Thz1xzz7-Empt 83 % [facility] ([facility]) Ggv9gau7-%Pred-Pre 104 % [facility] ([facility]) Wbm2shh2-Yak 87 % [facility] ([facility]) Mij4bzq6-NHP 74 % [facility] ([facility]) ID Date Data Source [id number] 09/21/2020 08:13:[facility] [address] [facility] Name Value Range Interpretation Code Description Data Juliann rce(s) Supporting Document(s) Covid Rapid Testing Laboratory test result [facility] ([facility]) ID Date Data Source [id number] 09/21/2020 12:00:00 AM EDT [facility] Name Value Range Interpretation Code Description Data Juliann rce(s) Supporting Document(s) Covid Rapid Testing Negative [facility] This lab was ordered by [facility] and re ported by [facility]. ID Date Data Source [id number] 09/14/2020 01:35:00 PM [facility] Name Value Range Interpretation Code Description Data Juliann rce(s) Supporting Document(s) Laboratory test finding (navigational concept) Laboratory test result [facility] ([facility]) Procedure Social History Code Duration Value Status Description Data Source(s ) Smoking 10/04/2020 12:00:00 AM EDT Patient has never smoked co mpleted Patient has never smoked [facility] ([facility]) Vital Signs ID Date Data Source UNK Name Value Range Interpretation Code Description Data Source(s) Systolic blood pressure 129 mm[Hg] 129 mm[Hg] M [facility]ENT ([facility], [facility]) Diastolic blood pressure 90 mm[Hg] 90 mm[Hg] [facility] ([facility], [facility]) Heart rate 104 /min 104 /min [facility] ([facility]) Respiratory rate 19 /min 19 /min [facility]) Oxygen saturation in Arterial blood by Pulse oximetry 98 % 98 % [facility] Body temperature 98.1 [degF] 98.1 [degF] [facility] ([facility]) Body weight 373.00 [lb_av] 373.00 [lb_av] MED[facility] T ([facility], [facility]) Body height 68 [in_i] 68 [in_i] [facility] ([facility]) 5'8" Body mass index (BMI) [Ratio] 56.7 kg/m2 56.7 k g/m2 [facility] ([facility]) [place] body weight 130 [lb_av] 130 [lb_av] MED[facility] T ([facility]) Systolic blood pressure 120 mm[Hg] 120 mm[Hg] [facility] Diastolic blood pressure 89 mm[Hg] 89 mm[Hg] [facility] ([facility]) Body temperature 98.4 [degF] 98.4 [degF] [facility] ([facility]) Body height 66 [in_i] 66 [in_i] [facility] ([facility]) 5'6" Body weight 360.00 [lb_av] 360.00 [lb_av] [facility] T ([facility]) Body mass index (BMI) [Ratio] 58.1 kg/m2 58.1 k g/m2 [facility] ([facility]) Body weight 163.296 kg 163.296 kg [facility] ([facility]) Body surface area Derived from formula 2.57 m2 2.57 m2 [facility] ([facility]) Systolic blood pressure 152 mm[Hg] 152 mm[Hg] M EDENT ([facility], [facility]) Diastolic blood pressure 90 mm[Hg] 90 mm[Hg] [facility] Heart rate 110 /min 110 /min [facility] ([facility], [facility]) Respiratory rate 20 /min 20 /min [facility] ( [facility], [facility]) Oxygen saturation in Arterial blood by Pulse oximetry 98 % 98 % [facility] ([facility], [facility]) Body temperature 98.4 [degF] 98.4 [degF] [facility] ([facility], [facility]) Body weight 373.00 [lb_av] 373.00 [lb_av] [facility] T ([facility], [facility]) Body height 68 [in_i] 68 [in_i] [facility] ([facility]) 5'8" Body mass index (BMI) [Ratio] 56.7 kg/m2 56.7 k g/m2 [facility] ([facility], [facility]) Systolic blood pressure 168 mm[Hg] 168 mm[Hg] [facility] ([facility], [facility]) Diastolic blood pressure 86 mm[Hg] 86 mm[Hg] [facility] ([facility], [facility]) Heart rate 112 /min 112 /min [facility] ([facility], [facility]) Respiratory rate 18 /min 18 /min [facility] ( [facility]) Oxygen saturation in Arterial blood by Pulse oximetry 97 % 97 % [facility] ([facility], [facility]) Body temperature 98.2 [degF] 98.2 [degF] [facility] ([facility], [facility]) Body weight 373.00 [lb_av] 373.00 [lb_av] MED[facility] T ([facility], [facility]) Body height 68 [in_i] 68 [in_i] [facility] ([facility]) 5'8" Body mass index (BMI) [Ratio] 56.7 kg/m2 56.7 k g/m2 [facility] ([facility], [facility]) Oxygen saturation in Arterial blood by Pulse oximetry 98 % 98 % [facility] Body temperature 96.8 [degF] 96.8 [degF] [facility] ([facility], ) Body height 66 [in_i] 66 [in_i] [facility] ([facility]) 5'6" Body weight 371.00 [lb_av] 371.00 [lb_av] MED[facility] T ([facility]) Body mass index (BMI) [Ratio] 59.9 kg/m2 59.9 k g/m2 [facility] ([facility]) [place] body weight 130 [lb_av] 130 [lb_av] MED[facility] T ([facility]) Body weight 168.286 kg 168.286 kg [facility] ([facility]) Body surface area Derived from formula 2.60 m2 2.60 m2 [facility] ([facility]) Diastolic blood pressure 84 mm[Hg] 84 mm[Hg] [facility] ([facility]) Heart rate 86 /min 86 /min [facility] ([facility]) Oxygen saturation in Arterial blood by Pulse oximetry 98 % 98 % [facility] ([facility]) Body temperature 96.8 [degF] 96.8 [degF] [facility] ([facility]) Body height 66 [in_i] 66 [in_i] [facility] ([facility]) 5'6" Body weight 371.00 [lb_av] 371.00 [lb_av] MED[facility] T ([facility]) Body mass index (BMI) [Ratio] 59.9 kg/m2 59.9 k g/m2 [facility] ([facility]) [place] body weight 130 [lb_av] 130 [lb_av] [facility] T ([facility]) Body weight 168.286 kg 168.286 kg [facility] ([facility]) Body surface area Derived from formula 2.60 m2 2.60 m2 [facility] ([facility]) Systolic blood pressure 124 mm[Hg] 124 mm[Hg] M [facility] ([facility]) Body weight 373.25 [lb_av] 373.25 [lb_av] MED[facility] T ([facility]) Body mass index (BMI) [Ratio] 58.5 kg/m2 58.5 k g/m2 [facility] ([facility]) Body temperature 96.9 [degF] 96.9 [degF] [facility] ([facility]) Body height 67 [in_i] 67 [in_i] [facility] ([facility]) 5'7" Heart rate 99 /min 99 /min [facility] ([facility]) Oxygen saturation in Arterial blood by Pulse oximetry 98 % 98 % [facility] ([facility]) Room Air Body height 66 [in_i] 66 [in_i] [facility] ([facility]) 5'6" Body weight 376.00 [lb_av] 376.00 [lb_av] [facility] Body mass index (BMI) [Ratio] 60.7 kg/m2 60.7 k g/m2 [facility] ([facility]) Systolic blood pressure 124 mm[Hg] 124 mm[Hg] M [facility] ([facility]) Diastolic blood pressure 78 mm[Hg] 78 mm[Hg] [facility] ([facility]) [place] body weight 130 [lb_av] 130 [lb_av] [facility] Body weight 170.554 kg 170.554 kg [facility] ([facility]) Body surface area Derived from formula 2.62 m2 2.62 m2 [facility] ([facility])
--- NOTE | 2021-05-01 10:50 | ROOR ---
Patient Name: Carmen Lopez Procedure Date: 05/01/2021 10:01 AM Date of : 1975 Age: 45 Room: [facility] Gender: Female Note Status: Finalized Procedure: Colonoscopy Indications: Abnormal CT of the GI tract, Follow-up of diverticulitis Providers: Fracisco Goyal MD Referring MD: Axel Ramey MD Requesting Provider: Medicines: Monitored Anesthesia Care Complications: No immediate complications. Procedure: Pre-Anesthesia Assessment: - Prior to the procedure, a History and Physical was performed, and patient medications and allergies were reviewed. The patient is competent. The risks and benefits of the procedure and the sedation options and risks were discussed with the patient. All questions were answered and informed consent was obtained. Patient identification and proposed procedure were verified by the physician, the nurse and the anesthesiologist in the endoscopy suite. Mental Status Examination: alert and oriented. Airway Examination: normal oropharyngeal airway and neck mobility. Respiratory Examination: clear to auscultation. CV Examination: normal. Prophylactic Antibiotics: The patient does not require prophylactic antibiotics. Prior Anticoagulants: The patient has taken no previous anticoagulant or antiplatelet agents. ASA Grade Assessment: III - A patient with severe systemic disease. After reviewing the risks and benefits, the patient was deemed in satisfactory condition to undergo the procedure. The anesthesia plan was to use monitored anesthesia care (MAC). Immediately prior to administration of medications, the patient was re-assessed for adequacy to receive sedatives. The heart rate, respiratory rate, oxygen saturations, blood pressure, adequacy of pulmonary ventilation, and response to care were monitored throughout the procedure. The physical status of the patient was re-assessed after the procedure. The Colonoscope was introduced through the anus and advanced to the cecum, identified by appendiceal orifice and ileocecal valve. The Colonoscope was introduced through the and advanced to. The colonoscopy was technically difficult and complex due to a partially obstructing mass. Successful completion of the procedure was aided by withdrawing the scope and replacing with the 'babyscope'. The patient tolerated the procedure well. The quality of the bowel preparation was good. Findings: The perianal and digital rectal examinations were normal. A 25 mm polyp was found in the sigmoid colon. The polyp was pedunculated. The polyp was removed with a hot snare. Resection and retrieval were complete. Estimated blood loss was minimal. Area was successfully injected with 2 mL Dora ink for tattooing. A fungating partially obstructing large mass was found in the descending colon. The mass was circumferential. The mass measured eight cm in length. No bleeding was present. This was biopsied with a cold forceps for histology. Area was successfully injected with 3 mL Dora ink for tattooing. I was not able to traverse the mass at 50 cms and switched to a Pedi-Pedi scope and was successful to traverse to the cecum. No other masses found. The retroflexed view of the distal rectum and anal verge was normal and showed no anal or rectal abnormalities. Impression: - One 25 mm polyp in the sigmoid colon, removed with a hot snare. Resected and retrieved. Injected. 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 Biopsied. Injected. - The distal rectum and anal verge are normal on retroflexion view. Recommendation: - Discharge patient to home (ambulatory). - Await pathology results. - Return to my office in 1 week. Procedure Code(s): --- Professional --- 80895, Colonoscopy, flexible; with removal of tumor(s), polyp(s), or other lesion(s) by snare technique 40061, Colonoscopy, flexible; with directed submucosal injection(s), any substance 73735, 59, Colonoscopy, flexible; with biopsy, single or multiple Diagnosis Code(s): --- Professional --- K63.5, Polyp of colon D49.0, Neoplasm of unspecified behavior of digestive system K56.690, Other partial intestinal obstruction K57.32, Diverticulitis of large intestine without perforation or abscess without bleeding R93.3, Abnormal findings on diagnostic imaging of other parts of digestive tract CPT copyright 2019 [employer]. All rights reserved. The codes documented in this report are preliminary and upon paste up artist review may be revised to meet current compliance requirements. Fracisco Goyal MD Fracisco Goyal MD 05/01/2021 10:50:14 AM Electronically signed by Fracisco Goyal MD Number of Addenda: 0 Note Initiated On: 05/01/2021 10:01 AM Estimated Blood Loss: Estimated blood loss was minimal.
[2021-05-01 10:57] VITALS: BP 131/95
== END 2021-05-01 11:40 | disposition home or self-care (01) ==
LOC: M OPP 08:45
PROVIDERS: ATTEND Surgery
DX: K63.5 Polyp of colon (principal); C18.6 Malignant neoplasm of descending colon; K56.690 Other partial intestinal obstruction; K57.32 Diverticulitis of large intestine without perforation or abscess without bleeding; R93.3 Abnormal findings on diagnostic imaging of other parts of digestive tract; K57.92 Diverticulitis of intestine, part unspecified, without perforation or abscess without bleeding; Z79.899 Other long term (current) drug therapy

== ENCOUNTER → 2021-05-15 | Outpatient (CLI) | payer BC ==
[~2021-05-15] MED LIST changes: -NS 1,000 ML IV ONE
[2021-05-15 12:10] LABS: HEMATOCRIT 34.3 % (36.0-47.0); HEMOGLOBIN 9.7 g/dl (12.0-15.5); MEAN CORPUSCULAR HEMOGLOBIN 19.4 pg (27.0-33.0); MEAN CORPUSCULAR HGB CONC 28.3 g/dl (32.0-36.5); MEAN CORPUSCULAR VOLUME 68.6 fl (80.0-96.0); PLATELET COUNT, AUTOMATED 302 10^3/uL (150-450); WHITE BLOOD COUNT 7.9 10^3/uL (4.0-10.0)
[2021-05-15 12:33] LABS: ALT/SGPT 37 U/L (12-78); BILIRUBIN,TOTAL 0.5 MG/DL (0.2-1.0); BLOOD UREA NITROGEN 10 MG/DL (7-18); CALCIUM LEVEL 9.1 MG/DL (8.5-10.1); CARBON DIOXIDE LEVEL 28 MEQ/L (21-32); CHLORIDE LEVEL 108 MEQ/L (98-107); CREATININE FOR GFR 0.74 MG/DL (0.55-1.30); GLOMERULAR FILTRATION RATE > 60.0 (>58); GLUCOSE, FASTING 95 MG/DL (70-100); POTASSIUM SERUM 4.1 MEQ/L (3.5-5.1); SODIUM LEVEL 141 MEQ/L (136-145); TOTAL PROTEIN 6.7 GM/DL (6.4-8.2)
== END ==
LOC: M WUC 09:30
PROVIDERS: ATTEND Surgery
DX: C18.6 Malignant neoplasm of descending colon (principal)

== ENCOUNTER → 2021-05-17 | Outpatient (CLI) | payer BC ==
[~2021-05-17] MED LIST changes: +BACITAB PO; +CIPR-249 PO; +DULC10SU2 PR; +GASTROGRAFIN SOLUTION 30ML (Q9963) ONE; +ISOVUE-370 76% 100ML VIAL ONE; +META0.52 PO; +PERCOCET PO; +SENN-80 PO; +SENO8.6T10 PO
== END ==
LOC: M PLAIMG 12:26
PROVIDERS: ATTEND Surgery
DX: C18.9 Malignant neoplasm of colon, unspecified (principal)

== ENCOUNTER 2021-05-25 15:47 | Observation (INO) | payer BC ==
[~2021-05-25] VITALS: Ht 172.7 cm; Wt 157.7 kg
[~2021-05-25 15:47] MED LIST changes: -BACITAB PO; -CIPR-249 PO; -DULC10SU2 PR; -GASTROGRAFIN SOLUTION 30ML (Q9963) ONE; -ISOVUE-370 76% 100ML VIAL ONE; -META0.52 PO; -PERCOCET PO; -SENN-80 PO; -SENO8.6T10 PO
[2021-05-25] MEDS ORDERED: NS 500 ML IV ONE (16:10)
[2021-05-25 16:33] LABS: BASO % 0.2 % (0.0-1.0); EOS # 0.1 10^3/uL (0.0-0.5); EOS % 1.8 % (0.0-3.0); HEMATOCRIT 32.4 % (36.0-47.0); HEMOGLOBIN 9.3 g/dl (12.0-15.5); LYMPH # 0.9 10^3/uL (1.5-5.0); LYMPH % 18.3 % (24.0-44.0); MEAN CORPUSCULAR HEMOGLOBIN 19.2 pg (27.0-33.0); MEAN CORPUSCULAR HGB CONC 28.7 g/dl (32.0-36.5); MEAN CORPUSCULAR VOLUME 66.8 fl (80.0-96.0); MONO # 0.3 10^3/uL (0.0-0.8); MONO % 6.8 % (2.0-8.0); NEUTROPHILS # 3.6 10^3/uL (1.5-8.5); NEUTROPHILS % 72.3 % (36.0-66.0); PLATELET COUNT, AUTOMATED 246 10^3/uL (150-450); RED BLOOD COUNT 4.85 10^6/uL (4.00-5.40)
[2021-05-25 17:05] LABS: BILIRUBIN,DIRECT 0.2 MG/DL (0.0-0.2); BILIRUBIN,TOTAL 0.6 MG/DL (0.2-1.0); TOTAL PROTEIN 6.6 GM/DL (6.4-8.2)
[2021-05-25] MEDS ORDERED: ISOVUE-370 76% 100ML VIAL As Ordered ONE (17:48)
[2021-05-25] MEDS ORDERED: MORPHINE 2 MG/ML 1ML VIAL (J2270) IV ONE (18:55)
[2021-05-25] MEDS ORDERED: ONDANSETRON 4MG/2ML VIAL IV ONE (18:55)
[2021-05-25] MEDS ORDERED: NS 1,000 ML IV ONE (19:00)
[2021-05-25] MEDS ORDERED: HOME MED LIST COMPLETE! XX SCH (19:20)
[2021-05-25] MEDS ORDERED: MORPHINE 4 MG/ML 1ML VIAL/SYRINGE (J2270) IV PRN (19:25)
[2021-05-25] MEDS ORDERED: MORPHINE 2 MG/ML 1ML VIAL (J2270) IV PRN (19:25)
[2021-05-25] MEDS ORDERED: ALBUTEROL SULFATE 2.5 MG/0.5 ML INH NEB SOLN INH PRN (19:25)
[2021-05-25] MEDS ORDERED: ALBUTEROL 90 MCG/ACT 8GM HFA INHALER INH PRN (19:25)
[2021-05-25] MEDS ORDERED: ONDANSETRON 4MG/2ML VIAL IV PRN (19:25)
[2021-05-25] MEDS ORDERED: ACETAMINOPHEN TAB 650MG DOSE (2X325MG) PO PRN (19:25)
[2021-05-25] MEDS: SYMBICORT 160/4.5MCG INHALER 6GM INH SCH (20:00)
[2021-05-25 20:07] LABS: RSV AMPLIFICATION NEGATIVE (NEGATIVE)
[2021-05-25] MEDS: FLUTICASONE PROP 0.05% NASAL SPRAY 16 GM (FLONASE) NARES SCH (21:00)
[2021-05-25 22:24] LABS: INR 1.11; PARTIAL THROMBOPLASTIN TIME 29.1 SECONDS (25.9-37.0); PROTHROMBIN TIME 14.7 SECONDS (12.7-14.5)
[2021-05-26 01:17] VITALS: BP 150/84
[2021-05-26] MEDS: LR 1,000 ML IV SCH ×5 (01:32→21:51)
[2021-05-26] MEDS: LORATADINE 10 MG TAB PO SCH ×2 (01:32→21:07)
[2021-05-26] MEDS: ENOXAPARIN 40MG/0.4ML SYRINGE (J1650 PER 10MG) SC SCH ×2 (01:32→21:07)
[2021-05-26 06:00] VITALS: BP 110/82
[2021-05-26 06:42] LABS: HEMATOCRIT 29.4 % (36.0-47.0); HEMOGLOBIN 8.3 g/dl (12.0-15.5); MEAN CORPUSCULAR HEMOGLOBIN 19.3 pg (27.0-33.0); MEAN CORPUSCULAR HGB CONC 28.2 g/dl (32.0-36.5); MEAN CORPUSCULAR VOLUME 68.2 fl (80.0-96.0); PLATELET COUNT, AUTOMATED 214 10^3/uL (150-450); RED BLOOD COUNT 4.31 10^6/uL (4.00-5.40); WHITE BLOOD COUNT 3.2 10^3/uL (4.0-10.0)
[2021-05-26 07:07] LABS: BLOOD UREA NITROGEN 5 MG/DL (7-18); CALCIUM LEVEL 8.1 MG/DL (8.5-10.1); CARBON DIOXIDE LEVEL 25 MEQ/L (21-32); CHLORIDE LEVEL 108 MEQ/L (98-107); CREATININE FOR GFR 0.62 MG/DL (0.55-1.30); GLOMERULAR FILTRATION RATE > 60.0 (>58); GLUCOSE, FASTING 77 MG/DL (70-100); POTASSIUM SERUM 3.9 MEQ/L (3.5-5.1); SODIUM LEVEL 141 MEQ/L (136-145)
[2021-05-26] MEDS: LACTOBACILLUS ACIDOPHILUS CAP (BACID) PO SCH (07:53)
[2021-05-26] MEDS: SYMBICORT 160/4.5MCG INHALER 6GM INH SCH ×2 (09:53→20:21)
[2021-05-26] MEDS: CIPROFLOXACIN 400 MG in IV 1 EA IV SCH ×2 (10:18→21:08)
[2021-05-26 10:47] LABS: CHOLESTEROL LEVEL 123 MG/DL (<200); CHOLESTEROL RISK RATIO 3.416 (<5); HDL CHOLESTEROL 36 MG/DL (>40); LDL CHOLESTEROL 62 MG/DL (<100); NON-HDL-C 87 MG/DL; TRIGLYCERIDES LEVEL 127 MG/DL (<150)
[2021-05-26 10:58] LABS: HEMOGLOBIN A1c 5.3 %
[2021-05-26] MEDS: metroNIDAZOLE 500 MG in IV 1 EA IV SCH ×2 (11:51→18:04)
[2021-05-26] MEDS ORDERED: SENOKOT S TAB PO ONE (12:00)
[2021-05-26] MEDS ORDERED: MOM 30ML SUSPENSION UDC PO ONE (12:00)
[2021-05-26 14:00] VITALS: BP 100/65
[2021-05-26] MEDS ORDERED: MOM 30ML SUSPENSION UDC PO PRN (15:00)
[2021-05-26] MEDS ORDERED: SENOKOT S TAB PO PRN (21:00)
[2021-05-26] MEDS: FLUTICASONE PROP 0.05% NASAL SPRAY 16 GM (FLONASE) NARES SCH (21:17)
[2021-05-26 22:05] VITALS: BP 119/80
[2021-05-27] MEDS: LR 1,000 ML IV SCH (02:43)
[2021-05-27] MEDS: metroNIDAZOLE 500 MG in IV 1 EA IV SCH ×2 (02:43→12:59)
[2021-05-27 06:00] VITALS: BP 117/77
[2021-05-27] MEDS ORDERED: MAGNESIUM CITRATE 300 ML BTL PO ONE (07:20)
[2021-05-27] MEDS ORDERED: DULC10SU2 PR (07:22)
[2021-05-27] MEDS ORDERED: SENO8.6T10 PO (07:22)
[2021-05-27] MEDS ORDERED: METR-265 PO (07:22)
[2021-05-27] MEDS ORDERED: CIPR-249 PO (07:22)
[2021-05-27] MEDS ORDERED: BACITAB PO (07:22)
[2021-05-27] MEDS: SYMBICORT 160/4.5MCG INHALER 6GM INH SCH (07:29)
[2021-05-27] MEDS: LACTOBACILLUS ACIDOPHILUS CAP (BACID) PO SCH (08:25)
[2021-05-27 08:55] LABS: BASO % 0.4 % (0.0-1.0); EOS # 0.3 10^3/uL (0.0-0.5); EOS % 6.1 % (0.0-3.0); HEMATOCRIT 33.8 % (36.0-47.0); HEMOGLOBIN 9.6 g/dl (12.0-15.5); LYMPH # 1.4 10^3/uL (1.5-5.0); LYMPH % 29.1 % (24.0-44.0); MEAN CORPUSCULAR HEMOGLOBIN 19.1 pg (27.0-33.0); MEAN CORPUSCULAR HGB CONC 28.4 g/dl (32.0-36.5); MEAN CORPUSCULAR VOLUME 67.2 fl (80.0-96.0); MONO # 0.3 10^3/uL (0.0-0.8); MONO % 6.1 % (2.0-8.0); NEUTROPHILS # 2.8 10^3/uL (1.5-8.5); NEUTROPHILS % 57.5 % (36.0-66.0); PLATELET COUNT, AUTOMATED 265 10^3/uL (150-450); RED BLOOD COUNT 5.03 10^6/uL (4.00-5.40); WHITE BLOOD COUNT 4.9 10^3/uL (4.0-10.0)
[2021-05-27 09:23] LABS: ALBUMIN 2.9 GM/DL (3.2-5.2); ALT/SGPT 26 U/L (12-78); BILIRUBIN,TOTAL 0.3 MG/DL (0.2-1.0); BLOOD UREA NITROGEN 6 MG/DL (7-18); C REACTIVE PROTEIN QUANTITATIV 2.71 MG/DL (0.00-0.30); CALCIUM LEVEL 8.5 MG/DL (8.5-10.1); CARBON DIOXIDE LEVEL 24 MEQ/L (21-32); CHLORIDE LEVEL 109 MEQ/L (98-107); CREATININE FOR GFR 0.68 MG/DL (0.55-1.30); GLOMERULAR FILTRATION RATE > 60.0 (>58); GLUCOSE, FASTING 127 MG/DL (70-100); LIPASE 115 U/L (73-393); SODIUM LEVEL 142 MEQ/L (136-145); TOTAL PROTEIN 6.5 GM/DL (6.4-8.2)
[2021-05-27 09:32] LABS: ERYTHROCYTE SEDIMENTATION RATE 52 mm/hr (0-20)
[2021-05-27] MEDS: CIPROFLOXACIN 400 MG in IV 1 EA IV SCH (10:00)
[2021-05-27 14:00] VITALS: BP 129/78
[2021-06-04] MEDS ORDERED: DULC10SU2 PR (11:47)
[2021-07-03] MEDS ORDERED: META0.52 PO (13:54)
[2021-07-03] MEDS ORDERED: SENN-80 PO (13:54)
== END 2021-05-27 17:47 | disposition home or self-care (01) ==
LOC: M ED 15:47 → M ED INP 15:48 → M MSPAV 05-26 01:17
PROVIDERS: ADMIT Internal Medicine; ATTEND General Practice
DX: C18.9 Malignant neoplasm of colon, unspecified (principal); R10.12 Left upper quadrant pain; R10.32 Left lower quadrant pain; K59.00 Constipation, unspecified; R74.8 Abnormal levels of other serum enzymes; E66.01 Morbid (severe) obesity due to excess calories; Z68.43 Body mass index [BMI] 50.0-59.9, adult; J45.909 Unspecified asthma, uncomplicated; R71.0 Precipitous drop in hematocrit; D70.9 Neutropenia, unspecified; K85.90 Acute pancreatitis without necrosis or infection, unspecified; Z79.899 Other long term (current) drug therapy; Z79.2 Long term (current) use of antibiotics; Z79.51 Long term (current) use of inhaled steroids
CPT/HCPCS: 36415; 74177; 80047; 80048; 80053; 80061; 80076; 82150; 83036; 83605; 83690; 83735; 84145; 84443; 85025; 85027; 85610; 85652; 85730; 86140; 87040; 87631; 93041; 94640; 96361; 96365; 96366; 96367; 96372; 96375; 96376; 99285; J0744; J1650; J2270; J2405; Q9967

== ENCOUNTER → 2021-05-30 | Outpatient (CLI) | payer BC ==
[~2021-05-30] MED LIST changes: +BACITAB PO; +CIPR-249 PO; +DULC10SU2 PR; +SENO8.6T10 PO
[2021-05-30 07:13] LABS: BASO % 0.5 % (0.0-1.0); EOS # 0.4 10^3/uL (0.0-0.5); EOS % 6.9 % (0.0-3.0); HEMATOCRIT 34.4 % (36.0-47.0); HEMOGLOBIN 9.6 g/dl (12.0-15.5); LYMPH # 1.6 10^3/uL (1.5-5.0); LYMPH % 28.1 % (24.0-44.0); MEAN CORPUSCULAR HGB CONC 27.9 g/dl (32.0-36.5); MEAN CORPUSCULAR VOLUME 68.1 fl (80.0-96.0); MONO # 0.5 10^3/uL (0.0-0.8); NEUTROPHILS # 3.2 10^3/uL (1.5-8.5); PLATELET COUNT, AUTOMATED 270 10^3/uL (150-450); RED BLOOD COUNT 5.05 10^6/uL (4.00-5.40); WHITE BLOOD COUNT 5.6 10^3/uL (4.0-10.0)
[2021-05-30 07:47] LABS: ALT/SGPT 33 U/L (12-78); BILIRUBIN,TOTAL 0.3 MG/DL (0.2-1.0); BLOOD UREA NITROGEN 9 MG/DL (7-18); CALCIUM LEVEL 8.9 MG/DL (8.5-10.1); CARBON DIOXIDE LEVEL 29 MEQ/L (21-32); CHLORIDE LEVEL 106 MEQ/L (98-107); CREATININE FOR GFR 0.77 MG/DL (0.55-1.30); GLOMERULAR FILTRATION RATE > 60.0 (>58); GLUCOSE, FASTING 96 MG/DL (70-100); POTASSIUM SERUM 4.2 MEQ/L (3.5-5.1); SODIUM LEVEL 139 MEQ/L (136-145); TOTAL PROTEIN 6.5 GM/DL (6.4-8.2)
--- NOTE | 2021-05-30 08:03 | ECGEPIP ---
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
== END ==
LOC: M LAB 06:51
PROVIDERS: ATTEND Family Medicine
DX: Z01.818 Encounter for other preprocedural examination (principal)

== ENCOUNTER → 2021-06-08 | Outpatient (CLI) | payer BC | LOC: M LABSMTC 11:11 | PROVIDERS: ATTEND Anesthesiology | DX: Z01.812 Encounter for preprocedural laboratory examination (principal); Z20.822 Contact with and (suspected) exposure to COVID-19 ==

== ENCOUNTER 2021-06-13 06:44 | Inpatient (IN) | payer BC, OTHER ==
[~2021-06-13] VITALS: Ht 172.7 cm; Wt 153.7 kg
[2021-06-13] VITALS (8 sets, daily range): BP systolic 107–115; BP diastolic 73–76
[~2021-06-13 06:44] MED LIST changes: +CelecoXIB 400 MG CAP PO ONE; +HEPARIN SOD (PORCINE) 5000UNITS/ML 1ML VIAL/SYRINGE SQ ONE; +LR 1,000 ML IV ONE; +cefoTEtan DISODIUM 2 GM in D5W MINI-BAG PLUS 50 ML IV ONE; +metroNIDAZOLE 500 MG in IV 1 EA IV ONE
[2021-06-13] MEDS ORDERED: KETOROLAC 60MG 2ML VIAL As Ordered ONE (07:20)
[2021-06-13] MEDS ORDERED: ROCURONIUM BROMIDE 50 MG/5 ML VIAL As Ordered ONE ×3 (07:20→10:40)
[2021-06-13] MEDS ORDERED: MIDAZOLAM INJ 2MG/2ML VIAL (J2250 PER 1MG) As Ordered ONE (07:20)
[2021-06-13] MEDS ORDERED: BUPIVACAINE HCL 0.25% 10ML VIAL As Ordered ONE (07:20)
[2021-06-13] MEDS ORDERED: LIDOCAINE 2% 100MG/5ML SDV (FOR ANES.) As Ordered ONE (07:20)
[2021-06-13] MEDS ORDERED: ACETAMINOPHEN 1000MG 100ML IV BTL (OFIRMEV) (J0131 PER 10MG) As Ordered ONE (07:20)
[2021-06-13] MEDS ORDERED: dexameTHASONE 4 MG/ML 1ML VIAL (J1100 PER 1MG) As Ordered ONE (07:20)
[2021-06-13] MEDS ORDERED: HYDROmorphone HCL 2MG/ML 1ML VIAL As Ordered ONE (07:20)
[2021-06-13] MEDS ORDERED: BUPIVACAINE LIPOSOME/PF 1.3% 20ML VIAL (13.3MG/ML)(EXPAREL)(C9290 PER1MG) As Ordered ONE (07:20)
[2021-06-13] MEDS ORDERED: LIDOCAINE 1% SDV 30ML VIAL As Ordered ONE (07:20)
[2021-06-13] MEDS ORDERED: propofoL 200 MG/20 ML VIAL As Ordered ONE (07:20)
[2021-06-13] MEDS ORDERED: ONDANSETRON 4MG/2ML VIAL As Ordered ONE (07:20)
[2021-06-13] MEDS ORDERED: SUGAMMADEX SODIUM 500 MG/5 ML VIAL (BRIDION) As Ordered ONE (07:20)
[2021-06-13] MEDS ORDERED: BUPIVACAINE HCL 0.25% 30ML VIAL As Ordered ONE (07:20)
[2021-06-13] MEDS ORDERED: fentaNYL 100 MCG/2 ML INJECTION (J3010) As Ordered ONE (07:20)
[2021-06-13] MEDS ORDERED: ALVIMOPAN 12 MG CAPSULE (ENTEREG) PO ONE (07:25)
[2021-06-13] MEDS ORDERED: ESMOLOL INJ 100MG/10ML VIAL As Ordered ONE (10:55)
[2021-06-13] MEDS ORDERED: LABETALOL 100MG/20ML VIAL As Ordered ONE (11:09)
[2021-06-13] MEDS ORDERED: ALBUTEROL 90 MCG/ACT 8GM HFA INHALER INH PRN (13:10)
[2021-06-13] MEDS ORDERED: ONDANSETRON 4MG/2ML VIAL IV PRN ×2 (13:10→13:40)
[2021-06-13] MEDS ORDERED: ALBUTEROL SULFATE 2.5 MG/0.5 ML INH NEB SOLN INH PRN (13:10)
[2021-06-13] MEDS ORDERED: PERCOCET 5MG/325MG TAB PO PRN ×2 (13:10→13:40)
[2021-06-13] MEDS ORDERED: MORPHINE 4 MG/ML 1ML VIAL/SYRINGE (J2270) IV PRN (13:10)
[2021-06-13] MEDS ORDERED: fentaNYL 100 MCG/2 ML INJECTION (J3010) IV PRN (13:40)
[2021-06-13] MEDS ORDERED: LR 1,000 ML IV SCH (13:40)
[2021-06-13] MEDS ORDERED: METOCLOPRAMIDE INJ 10MG/2ML VIAL (J2765 PER 1) IV PRN (13:40)
[2021-06-13] MEDS: LR 1,000 ML IV SCH ×2 (14:55→21:36)
[2021-06-13] MEDS: KETOROLAC 30 MG/ML 1ML VIAL IV SCH (18:51)
[2021-06-13] MEDS: SYMBICORT 160/4.5MCG INHALER 6GM INH SCH (19:22)
[2021-06-13] MEDS: FLUTICASONE PROP 0.05% NASAL SPRAY 16 GM (FLONASE) NARES SCH (20:24)
[2021-06-13] MEDS: ALVIMOPAN 12 MG CAPSULE (ENTEREG) PO SCH (20:24)
[2021-06-13] MEDS: LORATADINE 10 MG TAB PO SCH (20:24)
[2021-06-14] MEDS: KETOROLAC 30 MG/ML 1ML VIAL IV SCH ×4 (01:07→18:03)
[2021-06-14 02:00] VITALS: BP 105/68
[2021-06-14] MEDS: LR 1,000 ML IV SCH ×2 (05:08→12:29)
[2021-06-14] MEDS: ACETAMINOPHEN TAB 650MG DOSE (2X325MG) PO PRN (05:08)
[2021-06-14 06:00] VITALS: BP 109/69
[2021-06-14 06:32] LABS: BASO % 0.1 % (0.0-1.0); EOS % 0.1 % (0.0-3.0); HEMATOCRIT 28.3 % (36.0-47.0); HEMOGLOBIN 8.2 g/dl (12.0-15.5); LYMPH # 1.2 10^3/uL (1.5-5.0); LYMPH % 15.8 % (24.0-44.0); MEAN CORPUSCULAR HEMOGLOBIN 19.2 pg (27.0-33.0); MEAN CORPUSCULAR VOLUME 66.3 fl (80.0-96.0); MONO # 0.7 10^3/uL (0.0-0.8); MONO % 8.6 % (2.0-8.0); NEUTROPHILS # 5.6 10^3/uL (1.5-8.5); NEUTROPHILS % 74.7 % (36.0-66.0); PLATELET COUNT, AUTOMATED 229 10^3/uL (150-450); RED BLOOD COUNT 4.27 10^6/uL (4.00-5.40); WHITE BLOOD COUNT 7.6 10^3/uL (4.0-10.0)
[2021-06-14 06:46] LABS: BLOOD UREA NITROGEN 7 MG/DL (7-18); CALCIUM LEVEL 8.4 MG/DL (8.5-10.1); CARBON DIOXIDE LEVEL 27 MEQ/L (21-32); CHLORIDE LEVEL 108 MEQ/L (98-107); CREATININE FOR GFR 0.63 MG/DL (0.55-1.30); GLOMERULAR FILTRATION RATE > 60.0 (>58); GLUCOSE, FASTING 106 MG/DL (70-100); POTASSIUM SERUM 4.1 MEQ/L (3.5-5.1); SODIUM LEVEL 141 MEQ/L (136-145)
[2021-06-14] MEDS: SYMBICORT 160/4.5MCG INHALER 6GM INH SCH ×2 (07:52→19:36)
[2021-06-14] MEDS: ENOXAPARIN 40MG/0.4ML SYRINGE (J1650 PER 10MG) SC SCH (07:57)
[2021-06-14] MEDS: ALVIMOPAN 12 MG CAPSULE (ENTEREG) PO SCH ×2 (07:57→21:25)
[2021-06-14 10:00] VITALS: BP 109/69
[2021-06-14] MEDS: PERCOCET 5MG/325MG TAB PO PRN ×2 (11:29→21:26)
[2021-06-14 14:00] VITALS: BP 105/70
[2021-06-14 18:00] VITALS: BP 111/75
[2021-06-14 21:09] VITALS: BP 112/76
[2021-06-14] MEDS: FLUTICASONE PROP 0.05% NASAL SPRAY 16 GM (FLONASE) NARES SCH (21:25)
[2021-06-14] MEDS: LORATADINE 10 MG TAB PO SCH (21:26)
[2021-06-15] MEDS: KETOROLAC 30 MG/ML 1ML VIAL IV SCH ×4 (00:44→18:58)
[2021-06-15 02:14] VITALS: BP 112/77
[2021-06-15 06:00] VITALS: BP 118/78
[2021-06-15 06:20] LABS: BASO % 0.5 % (0.0-1.0); EOS # 0.3 10^3/uL (0.0-0.5); EOS % 4.3 % (0.0-3.0); HEMATOCRIT 28.4 % (36.0-47.0); LYMPH # 1.6 10^3/uL (1.5-5.0); LYMPH % 24.6 % (24.0-44.0); MEAN CORPUSCULAR HEMOGLOBIN 19.3 pg (27.0-33.0); MEAN CORPUSCULAR HGB CONC 28.2 g/dl (32.0-36.5); MEAN CORPUSCULAR VOLUME 68.6 fl (80.0-96.0); MONO # 0.5 10^3/uL (0.0-0.8); MONO % 7.7 % (2.0-8.0); NEUTROPHILS # 3.9 10^3/uL (1.5-8.5); NEUTROPHILS % 62.1 % (36.0-66.0); PLATELET COUNT, AUTOMATED 233 10^3/uL (150-450); RED BLOOD COUNT 4.14 10^6/uL (4.00-5.40); WHITE BLOOD COUNT 6.3 10^3/uL (4.0-10.0)
[2021-06-15 06:42] LABS: BLOOD UREA NITROGEN 7 MG/DL (7-18); CALCIUM LEVEL 8.2 MG/DL (8.5-10.1); CARBON DIOXIDE LEVEL 27 MEQ/L (21-32); CHLORIDE LEVEL 109 MEQ/L (98-107); CREATININE FOR GFR 0.63 MG/DL (0.55-1.30); GLOMERULAR FILTRATION RATE > 60.0 (>58); GLUCOSE, FASTING 91 MG/DL (70-100); POTASSIUM SERUM 3.8 MEQ/L (3.5-5.1); SODIUM LEVEL 143 MEQ/L (136-145)
[2021-06-15] MEDS: SYMBICORT 160/4.5MCG INHALER 6GM INH SCH ×2 (07:59→19:48)
[2021-06-15] MEDS: ENOXAPARIN 40MG/0.4ML SYRINGE (J1650 PER 10MG) SC SCH (08:54)
[2021-06-15] MEDS: ALVIMOPAN 12 MG CAPSULE (ENTEREG) PO SCH ×2 (08:54→21:25)
[2021-06-15 10:00] VITALS: BP 124/82
[2021-06-15] MEDS: ACETAMINOPHEN TAB 650MG DOSE (2X325MG) PO PRN ×2 (10:37→15:15)
[2021-06-15 14:00] VITALS: BP 121/78
[2021-06-15 18:00] VITALS: BP 113/82
[2021-06-15] MEDS: FLUTICASONE PROP 0.05% NASAL SPRAY 16 GM (FLONASE) NARES SCH (21:25)
[2021-06-15] MEDS: LORATADINE 10 MG TAB PO SCH (21:25)
[2021-06-15 22:00] VITALS: BP 124/87
[2021-06-16] MEDS: KETOROLAC 30 MG/ML 1ML VIAL IV SCH ×2 (01:48→07:00)
[2021-06-16 02:00] VITALS: BP 123/86
[2021-06-16 06:00] VITALS: BP 127/86
[2021-06-16 06:03] LABS: BASO % 0.5 % (0.0-1.0); EOS # 0.4 10^3/uL (0.0-0.5); EOS % 6.6 % (0.0-3.0); HEMATOCRIT 28.9 % (36.0-47.0); HEMOGLOBIN 8.1 g/dl (12.0-15.5); LYMPH # 1.6 10^3/uL (1.5-5.0); LYMPH % 27.5 % (24.0-44.0); MEAN CORPUSCULAR HEMOGLOBIN 19.1 pg (27.0-33.0); MEAN CORPUSCULAR VOLUME 68.3 fl (80.0-96.0); MONO # 0.4 10^3/uL (0.0-0.8); MONO % 6.6 % (2.0-8.0); NEUTROPHILS # 3.4 10^3/uL (1.5-8.5); NEUTROPHILS % 57.9 % (36.0-66.0); PLATELET COUNT, AUTOMATED 230 10^3/uL (150-450); RED BLOOD COUNT 4.23 10^6/uL (4.00-5.40); WHITE BLOOD COUNT 5.8 10^3/uL (4.0-10.0)
[2021-06-16 06:32] LABS: BLOOD UREA NITROGEN 8 MG/DL (7-18); CALCIUM LEVEL 8.3 MG/DL (8.5-10.1); CARBON DIOXIDE LEVEL 28 MEQ/L (21-32); CHLORIDE LEVEL 107 MEQ/L (98-107); CREATININE FOR GFR 0.62 MG/DL (0.55-1.30); GLOMERULAR FILTRATION RATE > 60.0 (>58); GLUCOSE, FASTING 85 MG/DL (70-100); POTASSIUM SERUM 3.5 MEQ/L (3.5-5.1); SODIUM LEVEL 141 MEQ/L (136-145)
[2021-06-16] MEDS: SYMBICORT 160/4.5MCG INHALER 6GM INH SCH (07:26)
[2021-06-16] MEDS ORDERED: PERCOCET PO (08:32)
[2021-06-16] MEDS: ALVIMOPAN 12 MG CAPSULE (ENTEREG) PO SCH (08:50)
[2021-06-16] MEDS: ENOXAPARIN 40MG/0.4ML SYRINGE (J1650 PER 10MG) SC SCH (08:50)
[2021-06-16] MEDS: ACETAMINOPHEN TAB 650MG DOSE (2X325MG) PO PRN (08:53)
== END 2021-06-16 11:00 | disposition home or self-care (01) | DRG 221 ==
LOC: M OR 06:44 → M MSPAV 14:45
PROVIDERS: ADMIT Surgery; ATTEND Surgery
PROC: 8E0W4CZ Robotic Assisted Procedure of Trunk Region, Percutaneous Endoscopic Approach (ICD-10-PCS; 2021-06-13)
PROC: 0DBM4ZZ Excision of Descending Colon, Percutaneous Endoscopic Approach (ICD-10-PCS; principal; 2021-06-13 07:30)
DX: C18.6 Malignant neoplasm of descending colon (principal); G47.33 Obstructive sleep apnea (adult) (pediatric); J45.40 Moderate persistent asthma, uncomplicated

== ENCOUNTER → 2021-07-17 | Outpatient (CLI) | payer OTHER ==
[~2021-07-17] MED LIST changes: -CelecoXIB 400 MG CAP PO ONE; -HEPARIN SOD (PORCINE) 5000UNITS/ML 1ML VIAL/SYRINGE SQ ONE; -LR 1,000 ML IV ONE; +META0.52 PO; +PERCOCET PO; +SENN-80 PO; -cefoTEtan DISODIUM 2 GM in D5W MINI-BAG PLUS 50 ML IV ONE; -metroNIDAZOLE 500 MG in IV 1 EA IV ONE
[2021-07-17 10:17] LABS: BLOOD UREA NITROGEN 11 MG/DL (7-18); CALCIUM LEVEL 9.2 MG/DL (8.5-10.1); CARBON DIOXIDE LEVEL 26 MEQ/L (21-32); CHLORIDE LEVEL 106 MEQ/L (98-107); CHOLESTEROL LEVEL 174 MG/DL (<200); CHOLESTEROL RISK RATIO 3.625 (<5); CREATININE FOR GFR 0.78 MG/DL (0.55-1.30); GLOMERULAR FILTRATION RATE > 60.0 (>58); GLUCOSE, FASTING 84 MG/DL (70-100); HDL CHOLESTEROL 48 MG/DL (>40); LDL CHOLESTEROL 98 MG/DL (<100); NON-HDL-C 126 MG/DL; POTASSIUM SERUM 4.1 MEQ/L (3.5-5.1); SODIUM LEVEL 141 MEQ/L (136-145); TRIGLYCERIDES LEVEL 139 MG/DL (<150)
== END ==
LOC: M WUC 08:36
PROVIDERS: ATTEND Family Medicine
DX: K57.32 Diverticulitis of large intestine without perforation or abscess without bleeding (principal)

== ENCOUNTER → 2021-08-31 | Outpatient (CLI) | payer OTHER ==
[~2021-08-31] MED LIST changes: +CAPE1TAB2 PO; +HYDR-3713 PO; +PROC10TA5 PO; +XELO150T PO
[2021-08-31 09:59] LABS: BASO % 0.7 % (0.0-1.0); EOS # 0.1 10^3/uL (0.0-0.5); EOS % 2.4 % (0.0-3.0); HEMATOCRIT 35.1 % (36.0-47.0); HEMOGLOBIN 10.3 g/dl (12.0-15.5); MEAN CORPUSCULAR HEMOGLOBIN 20.6 pg (27.0-33.0); MEAN CORPUSCULAR HGB CONC 29.3 g/dl (32.0-36.5); MEAN CORPUSCULAR VOLUME 70.3 fl (80.0-96.0); MONO # 0.4 10^3/uL (0.0-0.8); MONO % 6.9 % (2.0-8.0); NEUTROPHILS # 3.2 10^3/uL (1.5-8.5); NEUTROPHILS % 55.3 % (36.0-66.0); PLATELET COUNT, AUTOMATED 238 10^3/uL (150-450); RED BLOOD COUNT 4.99 10^6/uL (4.00-5.40); WHITE BLOOD COUNT 5.8 10^3/uL (4.0-10.0)
[2021-08-31 10:29] LABS: ALBUMIN 3.2 GM/DL (3.2-5.2); ALT/SGPT 36 U/L (12-78); BILIRUBIN,TOTAL 0.4 MG/DL (0.2-1.0); BLOOD UREA NITROGEN 12 MG/DL (7-18); CALCIUM LEVEL 8.7 MG/DL (8.5-10.1); CARBON DIOXIDE LEVEL 30 MEQ/L (21-32); CHLORIDE LEVEL 107 MEQ/L (98-107); CREATININE FOR GFR 0.69 MG/DL (0.55-1.30); GLOMERULAR FILTRATION RATE > 60.0 (>58); GLUCOSE, FASTING 95 MG/DL (70-100); POTASSIUM SERUM 4.1 MEQ/L (3.5-5.1); SODIUM LEVEL 141 MEQ/L (136-145); TOTAL PROTEIN 6.6 GM/DL (6.4-8.2)
== END ==
LOC: M LAB 08:49
PROVIDERS: ATTEND Internal Medicine Hematology & Oncology
DX: C18.9 Malignant neoplasm of colon, unspecified (principal)

== ENCOUNTER → 2021-09-07 | Outpatient (CLI) | payer OTHER ==
[2021-09-07 10:17] LABS: BASO % 0.4 % (0.0-1.0); EOS # 0.1 10^3/uL (0.0-0.5); EOS % 2.3 % (0.0-3.0); HEMATOCRIT 35.6 % (36.0-47.0); HEMOGLOBIN 10.5 g/dl (12.0-15.5); LYMPH % 35.6 % (24.0-44.0); MEAN CORPUSCULAR HGB CONC 29.5 g/dl (32.0-36.5); MEAN CORPUSCULAR VOLUME 71.2 fl (80.0-96.0); MONO # 0.3 10^3/uL (0.0-0.8); MONO % 5.9 % (2.0-8.0); NEUTROPHILS # 3.1 10^3/uL (1.5-8.5); NEUTROPHILS % 55.1 % (36.0-66.0); PLATELET COUNT, AUTOMATED 263 10^3/uL (150-450); WHITE BLOOD COUNT 5.6 10^3/uL (4.0-10.0)
[2021-09-07 10:56] LABS: ALBUMIN 3.2 GM/DL (3.2-5.2); ALT/SGPT 33 U/L (12-78); BILIRUBIN,TOTAL 0.4 MG/DL (0.2-1.0); BLOOD UREA NITROGEN 11 MG/DL (7-18); CALCIUM LEVEL 8.9 MG/DL (8.5-10.1); CARBON DIOXIDE LEVEL 30 MEQ/L (21-32); CHLORIDE LEVEL 107 MEQ/L (98-107); CREATININE FOR GFR 0.61 MG/DL (0.55-1.30); GLOMERULAR FILTRATION RATE > 60.0 (>58); GLUCOSE, FASTING 96 MG/DL (70-100); POTASSIUM SERUM 4.1 MEQ/L (3.5-5.1); SODIUM LEVEL 141 MEQ/L (136-145); TOTAL PROTEIN 6.5 GM/DL (6.4-8.2)
== END ==
LOC: M LAB 09:07
PROVIDERS: ATTEND Internal Medicine Hematology & Oncology
DX: C18.9 Malignant neoplasm of colon, unspecified (principal)

== ENCOUNTER → 2022-03-19 | Outpatient (CLI) | payer OTHER ==
[~2022-03-19] MED LIST changes: +ALBU2.5V10 INH; -ALBU83IN INH; +FERR325T3 PO; +GASTROGRAFIN SOLUTION 30ML (Q9963) As Ordered ONE; +ISOVUE-370 76% 100ML VIAL As Ordered ONE
== END ==
LOC: M RAD 15:34
PROVIDERS: ATTEND Nurse Practitioner
DX: C18.9 Malignant neoplasm of colon, unspecified (principal)

== ENCOUNTER → 2022-06-03 | Outpatient (CLI) | payer OTHER ==
[~2022-06-03] MED LIST changes: -GASTROGRAFIN SOLUTION 30ML (Q9963) As Ordered ONE; -ISOVUE-370 76% 100ML VIAL As Ordered ONE
== END ==
LOC: M WHC 10:24
PROVIDERS: ATTEND Nurse Practitioner
DX: C18.9 Malignant neoplasm of colon, unspecified (principal)

== ENCOUNTER → 2022-07-06 | Outpatient (CLI) | payer OTHER ==
[~2022-07-06] MED LIST changes: +ALBU8.5H; +CVS1CAP5 PO; +PHEN15CA6
== END ==
LOC: M LABSMTC 10:20
PROVIDERS: ATTEND Anesthesiology
DX: Z01.812 Encounter for preprocedural laboratory examination (principal)

== ENCOUNTER 2022-07-09 09:52 | Day surgery (SDC) | payer OTHER ==
[~2022-07-09] VITALS: Ht 172.7 cm; Wt 157.9 kg
[~2022-07-09 09:52] MED LIST changes: +NS 1,000 ML IV ONE
[2022-07-09] MEDS ORDERED: propofoL 200 MG/20 ML VIAL As Ordered ONE ×2 (10:46→11:10)
[2022-07-09] MEDS ORDERED: LIDOCAINE 2% 100MG/5ML SDV (FOR ANES.) As Ordered ONE (10:46)
[2022-07-09 11:45] VITALS: BP 133/86
== END 2022-07-09 12:05 | disposition home or self-care (01) ==
LOC: M OPP 09:52
PROVIDERS: ATTEND Surgery
DX: Z12.11 Encounter for screening for malignant neoplasm of colon (principal); Z85.038 Personal history of other malignant neoplasm of large intestine; D12.6 Benign neoplasm of colon, unspecified; Z98.0 Intestinal bypass and anastomosis status; J45.909 Unspecified asthma, uncomplicated; G47.33 Obstructive sleep apnea (adult) (pediatric); Z99.89 Dependence on other enabling machines and devices; Z79.51 Long term (current) use of inhaled steroids; Z79.899 Other long term (current) drug therapy; Z91.030 Bee allergy status; Z90.49 Acquired absence of other specified parts of digestive tract

== ENCOUNTER → 2022-07-27 | Outpatient (REF) | payer OTHER ==
[~2022-07-27] MED LIST changes: -NS 1,000 ML IV ONE
== END ==
LOC: M WUC 19:05
PROVIDERS: ATTEND Student in an Organized Health Care Education/Training Program
DX: J06.9 Acute upper respiratory infection, unspecified (principal)

== ENCOUNTER → 2022-08-07 | Outpatient (CLI) | payer OTHER ==
[2022-08-07 08:30] LABS: HEMOGLOBIN A1c 5.2 % (4.0-6.0)
[2022-08-07 08:32] LABS: BLOOD UREA NITROGEN 14 MG/DL (9-23); CARBON DIOXIDE LEVEL 28 MMOL/L (20-31); CHLORIDE LEVEL 105 MMOL/L (98-107); CREATININE FOR GFR 0.68 MG/DL (0.55-1.30); GLOMERULAR FILTRATION RATE > 60.0 (>58); GLUCOSE, FASTING 91 MG/DL (60-100); POTASSIUM SERUM 4.2 MMOL/L (3.5-5.1); SODIUM LEVEL 140 MMOL/L (136-145)
== END ==
LOC: M LAB 07:04
PROVIDERS: ATTEND Family Medicine
DX: R73.9 Hyperglycemia, unspecified (principal)

== ENCOUNTER → 2022-10-02 | Outpatient (REF) | payer OTHER ==
[~2022-10-02] MED LIST changes: +FLUT50SP17 NARES; -FLUTISP NARES; +MELA10CA6 PO; +SENN-186 PO; -SENN-80 PO
== END ==
LOC: M SFHCWAGY 13:08
PROVIDERS: ATTEND Nurse Practitioner Family
DX: Z12.4 Encounter for screening for malignant neoplasm of cervix (principal)

== ENCOUNTER → 2022-10-02 | Outpatient (CLI) | payer OTHER | LOC: M WHC 09:52 | PROVIDERS: ATTEND Nurse Practitioner Family | DX: Z12.31 Encounter for screening mammogram for malignant neoplasm of breast (principal) ==

== ENCOUNTER → 2023-03-26 | Outpatient (CLI) | payer OTHER ==
[~2023-03-26] MED LIST changes: +GASTROGRAFIN SOLUTION 30ML ONE; +ISOVUE-370 76% 100ML VIAL ONE; +LORA-1041 PO; -LORA-674 PO
== END ==
LOC: M PLAIMG 11:45
PROVIDERS: ATTEND Nurse Practitioner
DX: C18.9 Malignant neoplasm of colon, unspecified (principal); K43.9 Ventral hernia without obstruction or gangrene; K76.89 Other specified diseases of liver; N83.202 Unspecified ovarian cyst, left side
CPT/HCPCS: 71260; 74177; Q9963; Q9967

== ENCOUNTER → 2023-04-07 | Outpatient (CLI) | payer OTHER ==
[~2023-04-07] MED LIST changes: -GASTROGRAFIN SOLUTION 30ML ONE; -ISOVUE-370 76% 100ML VIAL ONE
== END ==
LOC: M RAD 12:49
PROVIDERS: ATTEND Nurse Practitioner
DX: C18.9 Malignant neoplasm of colon, unspecified (principal)

== ENCOUNTER → 2023-06-04 | Outpatient (CLI) | payer OTHER ==
[~2023-06-04] MED LIST changes: -FLUT50SP17 NARES; +FLUTISP NARES
[2023-06-04 08:30] LABS: BASO % 0.4 % (0.0-1.0); EOS # 0.1 10^3/uL (0.0-0.5); HEMATOCRIT 38.4 % (36.0-47.0); HEMOGLOBIN 12.2 g/dl (12.0-15.5); LYMPH # 1.6 10^3/uL (1.5-5.0); LYMPH % 28.6 % (24.0-44.0); MEAN CORPUSCULAR HEMOGLOBIN 25.1 pg (27.0-33.0); MEAN CORPUSCULAR HGB CONC 31.8 g/dl (32.0-36.5); MEAN CORPUSCULAR VOLUME 78.9 fl (80.0-96.0); MONO # 0.3 10^3/uL (0.0-0.8); MONO % 5.4 % (2.0-8.0); NEUTROPHILS # 3.5 10^3/uL (1.5-8.5); NEUTROPHILS % 63.1 % (36.0-66.0); PLATELET COUNT, AUTOMATED 179 10^3/uL (150-450); RED BLOOD COUNT 4.87 10^6/uL (4.00-5.40); WHITE BLOOD COUNT 5.6 10^3/uL (4.0-10.0)
[2023-06-04 08:59] LABS: ALBUMIN 3.4 G/DL (3.2-5.2); ALKALINE PHOSPHATASE 59 U/L (46-116); ALT/SGPT 17 U/L (7.0-40); AST/SGOT 9 U/L (<34); BILIRUBIN,TOTAL 0.4 MG/DL (0.3-1.2); BLOOD UREA NITROGEN 11 MG/DL (9-23); CALCIUM LEVEL 8.9 MG/DL (8.5-10.1); CARBON DIOXIDE LEVEL 32 MMOL/L (20-31); CHLORIDE LEVEL 104 MMOL/L (98-107); CREATININE FOR GFR 0.63 MG/DL (0.55-1.30); GLOMERULAR FILTRATION RATE > 60.0 (>58); GLUCOSE, FASTING 91 MG/DL (60-100); POTASSIUM SERUM 3.5 MMOL/L (3.5-5.1); SODIUM LEVEL 140 MMOL/L (136-145); TOTAL PROTEIN 6.2 G/DL (5.7-8.2)
== END ==
LOC: M EKG 07:56
PROVIDERS: ATTEND Family Medicine
DX: Z01.818 Encounter for other preprocedural examination (principal)

== ENCOUNTER 2023-07-01 05:58 | Inpatient (IN) | payer OTHER ==
[~2023-07-01] VITALS: Ht 172.7 cm; Wt 132.1 kg
[2023-07-01] VITALS (7 sets, daily range): BP systolic 100–124; BP diastolic 61–81; TEMP 96.6–97.3; O2SAT 92–98
[~2023-07-01 05:58] MED LIST changes: -ALBU8.5H; +ALBU8.5H INH; +EPIP0.3I2 SC; +HYDR-3490 PO; +PHEN30CA21 PO; +UNRESOLVED CLARIFICATION ENTRY XX SCH
[2023-07-01] MEDS ORDERED: HEPARIN SOD (PORCINE) 5000UNITS/ML 1ML VIAL/SYRINGE SQ ONE (06:00)
[2023-07-01] MEDS ORDERED: CelecoXIB 400 MG CAP PO ONE (06:00)
[2023-07-01] MEDS ORDERED: LR 1,000 ML IV SCH ×2 (06:25→14:05)
[2023-07-01] MEDS ORDERED: KETAMINE HCL 200MG/20ML VIAL As Ordered ONE (06:57)
[2023-07-01] MEDS ORDERED: MIDAZOLAM INJ 2MG/2ML VIAL As Ordered ONE (06:57)
[2023-07-01] MEDS ORDERED: fentaNYL 100 MCG/2 ML INJECTION As Ordered ONE (06:57)
[2023-07-01] MEDS ORDERED: LIDOCAINE 2% 100MG/5ML SDV (FOR ANES.) As Ordered ONE (06:59)
[2023-07-01] MEDS ORDERED: KETOROLAC 60MG 2ML VIAL As Ordered ONE (07:00)
[2023-07-01] MEDS ORDERED: ONDANSETRON 4MG 2ML VIAL As Ordered ONE (07:00)
[2023-07-01] MEDS ORDERED: ROCURONIUM BROMIDE 50MG/5ML VIAL As Ordered ONE ×3 (07:00→11:01)
[2023-07-01] MEDS ORDERED: GLYCOPYRROLATE INJ 0.2 MG/ML 2 ML VIAL As Ordered ONE (07:00)
[2023-07-01] MEDS ORDERED: SUGAMMADEX SODIUM 500 MG/5 ML VIAL (BRIDION) As Ordered ONE (07:00)
[2023-07-01] MEDS ORDERED: HYDROmorphone HCL 2MG/ML 1ML VIAL As Ordered ONE (07:02)
[2023-07-01] MEDS ORDERED: propofoL 200 MG/20 ML VIAL As Ordered ONE (07:04)
[2023-07-01] MEDS ORDERED: LIDOCAINE 1% SDV 30ML VIAL As Ordered ONE (07:14)
[2023-07-01] MEDS ORDERED: ceFAZolin SOD 1 GM in D5W MINI-BAG PLUS 50 ML IV ONE (07:30)
[2023-07-01] MEDS ORDERED: ceFAZolin SOD 2 GM in IV 1 EA IV ONE (07:30)
[2023-07-01] MEDS ORDERED: dexmedeTOMIDine (4MCG/ML)200MCG/50ML BTL (PRECEDEX) As Ordered ONE (09:13)
[2023-07-01] MEDS ORDERED: LABETALOL 100MG/20ML VIAL As Ordered ONE (09:26)
[2023-07-01] MEDS ORDERED: ceFAZolin 1GM VIAL As Ordered ONE (11:32)
[2023-07-01] MEDS ORDERED: ceFAZolin 2 GM/D5W 50 ML IV BAG As Ordered ONE (11:32)
[2023-07-01] MEDS ORDERED: DESFLURANE 240 ML INHALANT As Ordered ONE (11:56)
[2023-07-01] MEDS ORDERED: fentaNYL 100 MCG/2 ML INJECTION IV PRN (14:05)
[2023-07-01] MEDS ORDERED: ONDANSETRON 4MG 2ML VIAL IV PRN ×2 (14:05→14:15)
[2023-07-01] MEDS ORDERED: ALBUTEROL SULFATE 2.5MG/0.5ML INH NEB SOLN INH PRN (14:15)
[2023-07-01] MEDS ORDERED: NORCO, ANEXSIA 5/325MG TABLET (HYDROcodone/ACETAMINOPHEN) PO PRN ×2 (14:15)
[2023-07-01] MEDS ORDERED: MORPHINE 4 MG/ML 1ML VIAL IV PRN (14:15)
[2023-07-01] MEDS ORDERED: ALBUTEROL 90 MCG/ACT 8GM HFA INHALER INH PRN (14:15)
[2023-07-01] MEDS ORDERED: ACETAMINOPHEN TAB 650MG DOSE (2X325MG) PO PRN (14:15)
[2023-07-01] MEDS: LR 1,000 ML IV SCH ×2 (15:35→20:43)
[2023-07-01] MEDS: KETOROLAC 30 MG/ML 1ML VIAL IV SCH ×2 (17:26→23:46)
[2023-07-01] MEDS: SYMBICORT 160/4.5MCG INHALER 6GM INH SCH (19:10)
[2023-07-01] MEDS ORDERED: ACET-897 PO (20:19)
[2023-07-01] MEDS ORDERED: HOME MED LIST COMPLETE! XX SCH ×2 (20:20→20:25)
[2023-07-01] MEDS: LORATADINE 10 MG TAB PO SCH (20:43)
[2023-07-01] MEDS: SENOKOT S TAB PO SCH (20:43)
[2023-07-01] MEDS: FLUTICASONE PROP 0.05% NASAL SPRAY 16 GM (FLONASE) NARES SCH (20:43)
[2023-07-02 00:16] VITALS: BP 122/70; TEMP 97.5; O2SAT 90
[2023-07-02 02:30] VITALS: BP 110/70; TEMP 97.9; O2SAT 95
[2023-07-02 05:22] VITALS: BP 110/66; TEMP 98.1; O2SAT 90
[2023-07-02] MEDS: KETOROLAC 30 MG/ML 1ML VIAL IV SCH ×3 (05:25→17:43)
[2023-07-02] MEDS: LR 1,000 ML IV SCH (05:26)
[2023-07-02 06:20] LABS: BASO % 0.1 % (0.0-1.0); HEMATOCRIT 33.4 % (36.0-47.0); HEMOGLOBIN 10.7 g/dl (12.0-15.5); LYMPH # 1.5 10^3/uL (1.5-5.0); MEAN CORPUSCULAR HEMOGLOBIN 24.9 pg (27.0-33.0); MEAN CORPUSCULAR VOLUME 77.7 fl (80.0-96.0); MONO # 0.7 10^3/uL (0.0-0.8); MONO % 6.7 % (2.0-8.0); NEUTROPHILS # 8.5 10^3/uL (1.5-8.5); NEUTROPHILS % 78.6 % (36.0-66.0); PLATELET COUNT, AUTOMATED 189 10^3/uL (150-450); WHITE BLOOD COUNT 10.8 10^3/uL (4.0-10.0)
[2023-07-02 06:50] LABS: BLOOD UREA NITROGEN 11 MG/DL (9-23); CALCIUM LEVEL 8.6 MG/DL (8.5-10.1); CARBON DIOXIDE LEVEL 29 MMOL/L (20-31); CHLORIDE LEVEL 106 MMOL/L (98-107); CREATININE FOR GFR 0.58 MG/DL (0.55-1.30); GLOMERULAR FILTRATION RATE > 60.0 (>58); GLUCOSE, FASTING 104 MG/DL (60-100); POTASSIUM SERUM 4.4 MMOL/L (3.5-5.1); SODIUM LEVEL 140 MMOL/L (136-145)
[2023-07-02] MEDS: SYMBICORT 160/4.5MCG INHALER 6GM INH SCH ×2 (07:31→20:13)
[2023-07-02 09:00] VITALS: BP 101/62; TEMP 98.1; O2SAT 91
[2023-07-02] MEDS: ENOXAPARIN 40MG/0.4ML SYRINGE (J1650 PER 10MG) SC SCH (09:08)
[2023-07-02] MEDS: SENOKOT S TAB PO SCH ×2 (09:08→20:34)
[2023-07-02 14:26] VITALS: BP 124/68; TEMP 98.2; O2SAT 97
[2023-07-02] MEDS: LORATADINE 10 MG TAB PO SCH (20:33)
[2023-07-02 20:40] VITALS: BP 102/64; TEMP 97.9; O2SAT 91
[2023-07-02] MEDS: FLUTICASONE PROP 0.05% NASAL SPRAY 16 GM (FLONASE) NARES SCH (22:37)
[2023-07-03 00:12] VITALS: BP 104/63; TEMP 98.2; O2SAT 94
[2023-07-03] MEDS: KETOROLAC 30 MG/ML 1ML VIAL IV SCH ×3 (00:20→12:06)
[2023-07-03 05:30] VITALS: BP 106/68; TEMP 97.7; O2SAT 94
[2023-07-03] MEDS: SYMBICORT 160/4.5MCG INHALER 6GM INH SCH (07:27)
[2023-07-03] MEDS: ENOXAPARIN 40MG/0.4ML SYRINGE (J1650 PER 10MG) SC SCH (08:37)
[2023-07-03] MEDS: SENOKOT S TAB PO SCH (08:37)
[2023-07-03] MEDS ORDERED: HYDR-3715 PO (11:01)
== END 2023-07-03 12:50 | disposition home or self-care (01) | DRG 354 ==
LOC: M SDC 05:58 → M RR INP 14:13 → M MSPAV 15:10
PROVIDERS: ADMIT Surgery; ATTEND Surgery
PROC: 0KNL4ZZ Release Left Abdomen Muscle, Percutaneous Endoscopic Approach (ICD-10-PCS; 2023-07-01)
PROC: 0KNK4ZZ Release Right Abdomen Muscle, Percutaneous Endoscopic Approach (ICD-10-PCS; 2023-07-01)
PROC: 0WUF4JZ Supplement Abdominal Wall with Synthetic Substitute, Percutaneous Endoscopic Approach (ICD-10-PCS; principal; 2023-07-01 07:30)
PROC: 8E0W4CZ Robotic Assisted Procedure of Trunk Region, Percutaneous Endoscopic Approach (ICD-10-PCS; 2023-07-01 07:30)
DX: K43.9 Ventral hernia without obstruction or gangrene (principal); Z68.41 Body mass index [BMI] 40.0-44.9, adult; E66.01 Morbid (severe) obesity due to excess calories; G47.33 Obstructive sleep apnea (adult) (pediatric); J45.909 Unspecified asthma, uncomplicated; Z85.038 Personal history of other malignant neoplasm of large intestine; Z90.49 Acquired absence of other specified parts of digestive tract; Z92.21 Personal history of antineoplastic chemotherapy

== ENCOUNTER → 2023-07-20 | Outpatient (CLI) | payer OTHER ==
[~2023-07-20] MED LIST changes: +ACET-897 PO; +HYDR-3715 PO; -UNRESOLVED CLARIFICATION ENTRY XX SCH
[2023-07-20 11:53] LABS: APPEARANCE, URINE CLEAR (CLEAR); BACTERIA, URINE AUTO NEGATIVE (NEGATIVE); BILIRUBIN, URINE AUTO NEGATIVE (NEGATIVE); BLOOD, URINE BLOOD NEGATIVE (NEGATIVE); COLOR, URINE YELLOW (YELLOW); GLUCOSE, URINE (UA) AUTO NEGATIVE (NEGATIVE); KETONE, URINE AUTO NEGATIVE (NEGATIVE); LEUKOCYTE ESTERASE, URINE AUTO NEGATIVE (NEGATIVE); MUCUS, URINE SMALL (NEGATIVE); NITRITE, URINE AUTO NEGATIVE (NEGATIVE); PROTEIN, URINE AUTO NEGATIVE (NEGATIVE); RBC, URINE AUTO 0 /HPF (0-3); SPECIFIC GRAVITY URINE AUTO 1.013 (1.002-1.035); SQUAMOUS EPITHELIAL CELL UR AU 0 /HPF (0-6); UROBILINOGEN, URINE AUTO 0.2 mg/dL (0.0-2.0); WBC, URINE AUTO 0 /HPF (0-3)
== END ==
LOC: M LAB 11:04
PROVIDERS: ATTEND Physician Assistant
DX: R39.15 Urgency of urination (principal)

== ENCOUNTER → 2023-10-08 | Outpatient (CLI) | payer OTHER ==
[~2023-10-08] MED LIST changes: +DOXY-323 PO; -DOXY-443 PO
== END ==
LOC: M WHC 07:28
PROVIDERS: ATTEND Nurse Practitioner Family
DX: Z12.31 Encounter for screening mammogram for malignant neoplasm of breast (principal)

== ENCOUNTER → 2023-10-21 | Outpatient (CLI) | payer OTHER ==
[~2023-10-21] MED LIST changes: +AUGM500T34 PO; +GASTROGRAFIN SOLUTION 30ML ONE; +ISOVUE-370 76% 100ML VIAL ONE; +PRED5CON PO
== END ==
LOC: M PLAIMG 07:01
PROVIDERS: ATTEND Nurse Practitioner
DX: C18.9 Malignant neoplasm of colon, unspecified (principal)

== ENCOUNTER → 2024-02-09 | Outpatient (CLI) | payer OTHER ==
[~2024-02-09] MED LIST changes: -GASTROGRAFIN SOLUTION 30ML ONE; -ISOVUE-370 76% 100ML VIAL ONE
[2024-02-09 15:40] LABS: BASO % 0.3 % (0.0-1.0); EOS # 0.1 10^3/uL (0.0-0.5); EOS % 2.1 % (0.0-3.0); HEMATOCRIT 38.4 % (36.0-47.0); HEMOGLOBIN 12.2 g/dl (12.0-15.5); LYMPH # 1.9 10^3/uL (1.5-5.0); LYMPH % 31.3 % (24.0-44.0); MEAN CORPUSCULAR HEMOGLOBIN 24.7 pg (27.0-33.0); MEAN CORPUSCULAR HGB CONC 31.8 g/dl (32.0-36.5); MEAN CORPUSCULAR VOLUME 77.9 fl (80.0-96.0); MONO # 0.4 10^3/uL (0.0-0.8); MONO % 5.8 % (2.0-8.0); NEUTROPHILS # 3.7 10^3/uL (1.5-8.5); NEUTROPHILS % 59.5 % (36.0-66.0); PLATELET COUNT, AUTOMATED 228 10^3/uL (150-450); RED BLOOD COUNT 4.93 10^6/uL (4.00-5.40); WHITE BLOOD COUNT 6.2 10^3/uL (4.0-10.0)
[2024-02-09 16:11] LABS: TOTAL IRON BINDING CAPACITY 311 UG/DL (250-425)
[2024-02-09 16:12] LABS: ALBUMIN 3.5 G/DL (3.2-5.2); ALKALINE PHOSPHATASE 70 U/L (46-116); ALT/SGPT 18 U/L (7.0-40); AST/SGOT 10 U/L (<34); BILIRUBIN,TOTAL 0.3 MG/DL (0.3-1.2); BLOOD UREA NITROGEN 17 MG/DL (9-23); CALCIUM LEVEL 8.9 MG/DL (8.5-10.1); CARBON DIOXIDE LEVEL 30 MMOL/L (20-31); CHLORIDE LEVEL 105 MMOL/L (98-107); CREATININE FOR GFR 0.83 MG/DL (0.55-1.30); GLOMERULAR FILTRATION RATE > 60.0 (>58); GLUCOSE, FASTING 81 MG/DL (60-100); IRON (FE) 53 UG/DL (50-170); POTASSIUM SERUM 4.1 MMOL/L (3.5-5.1); SODIUM LEVEL 139 MMOL/L (136-145); TOTAL PROTEIN 6.7 G/DL (5.7-8.2)
[2024-02-09 16:13] LABS: FERRITIN 78.5 NG/ML (7.3-270.7)
== END ==
LOC: M LAB 15:18
PROVIDERS: ATTEND Internal Medicine Hematology & Oncology
DX: C18.9 Malignant neoplasm of colon, unspecified (principal); D50.9 Iron deficiency anemia, unspecified

== ENCOUNTER 2024-05-05 22:48 | Emergency (ER) | payer OTHER ==
[~2024-05-05] VITALS: Ht 172.7 cm; Wt 141.1 kg
[~2024-05-05 22:48] MED LIST changes: +BREO1INH3; -DOXY-323 PO; +DOXY-441 PO
[2024-05-06] MEDS ORDERED: AMOX875T2 PO (00:36)
[2024-05-06] MEDS: AUGMENTIN 875 MG TAB PO ONE (00:42)
[2024-05-06] MEDS: BOOSTRIX VACCINE (TETANUS/DIPHTH/ACEL. PERTUSSIS) 0.5ML SYR IM.IMMUN ONE (00:43)
[2024-05-06 01:10] VITALS: BP 125/84; TEMP 97.1; O2SAT 100
== END 2024-05-06 01:18 | disposition home or self-care (01) ==
LOC: M ED 22:48
DX: S61.251A Open bite of left index finger without damage to nail, initial encounter (principal); Y92.019 Unspecified place in single-family (private) house as the place of occurrence of the external cause; Y93.9 Activity, unspecified; Y99.9 Unspecified external cause status; W54.0XXA Bitten by dog, initial encounter; Z23 Encounter for immunization; Z91.030 Bee allergy status; Z91.09 Other allergy status, other than to drugs and biological substances; Z79.51 Long term (current) use of inhaled steroids; Z79.2 Long term (current) use of antibiotics; Z79.52 Long term (current) use of systemic steroids; Z79.899 Other long term (current) drug therapy

== ENCOUNTER → 2024-05-13 | Outpatient (CLI) | payer OTHER ==
[~2024-05-13] MED LIST changes: +AMOX875T2 PO; +ISOVUE-370 76% 100ML VIAL As Ordered ONE
== END ==
LOC: M RAD 09:03
PROVIDERS: ATTEND Internal Medicine Medical Oncology
DX: C18.9 Malignant neoplasm of colon, unspecified (principal); K76.89 Other specified diseases of liver; N83.202 Unspecified ovarian cyst, left side
CPT/HCPCS: 71260; 74177; Q9967

== ENCOUNTER 2024-08-27 21:03 | Emergency (ER) | payer OTHER ==
[~2024-08-27] VITALS: Ht 172.7 cm; Wt 148.6 kg
[~2024-08-27 21:03] MED LIST changes: -ISOVUE-370 76% 100ML VIAL As Ordered ONE
[2024-08-27 22:50] VITALS: BP 124/75; TEMP 97.1; O2SAT 99
[2024-08-27] MEDS: AUGMENTIN 875 MG TAB PO ONE (22:52)
== END 2024-08-27 22:53 | disposition home or self-care (01) ==
LOC: M ED 21:03
DX: S61.251A Open bite of left index finger without damage to nail, initial encounter (principal); Y92.9 Unspecified place or not applicable; Y93.9 Activity, unspecified; Y99.9 Unspecified external cause status; W54.0XXA Bitten by dog, initial encounter; J45.909 Unspecified asthma, uncomplicated; Z85.038 Personal history of other malignant neoplasm of large intestine; Z91.030 Bee allergy status; Z91.09 Other allergy status, other than to drugs and biological substances; Z79.51 Long term (current) use of inhaled steroids; Z79.1 Long term (current) use of non-steroidal anti-inflammatories (NSAID); Z79.2 Long term (current) use of antibiotics; Z79.899 Other long term (current) drug therapy; Z79.52 Long term (current) use of systemic steroids

== ENCOUNTER → 2025-02-02 | Outpatient (CLI) | payer OTHER ==
[~2025-02-02] MED LIST changes: +ACET-1515 PO; -ACET650T15 PO; +ISOVUE-370 76% 100 ML VIAL As Ordered ONE; +METAMUCIL GUMMIES PO
== END ==
LOC: M RAD 12:44
DX: C18.6 Malignant neoplasm of descending colon (principal)

== ENCOUNTER 2025-02-26 07:26 | Emergency (ER) | payer OTHER ==
[~2025-02-26] VITALS: Ht 175.3 cm; Wt 71.7 kg
[~2025-02-26 07:26] MED LIST changes: +CAPE150T18 PO; -ISOVUE-370 76% 100 ML VIAL As Ordered ONE; -XELO150T PO
[2025-02-26] MEDS ORDERED: AMOX875T2 PO (09:43)
[2025-02-26 09:48] VITALS: BP 130/90; TEMP 96.9; O2SAT 99
== END 2025-02-26 09:50 | disposition home or self-care (01) ==
LOC: M ED 07:26
DX: S61.432A Puncture wound without foreign body of left hand, initial encounter (principal); W54.0XXA Bitten by dog, initial encounter; Y92.019 Unspecified place in single-family (private) house as the place of occurrence of the external cause; Y93.9 Activity, unspecified; Y99.9 Unspecified external cause status; I10 Essential (primary) hypertension; J45.909 Unspecified asthma, uncomplicated; Z91.030 Bee allergy status; Z91.09 Other allergy status, other than to drugs and biological substances; Z79.51 Long term (current) use of inhaled steroids; Z79.2 Long term (current) use of antibiotics; Z79.899 Other long term (current) drug therapy

== ENCOUNTER → 2025-05-03 | Outpatient (CLI) | payer OTHER | LOC: M WHC 15:01 | PROVIDERS: ATTEND Nurse Practitioner Family | DX: Z12.31 Encounter for screening mammogram for malignant neoplasm of breast (principal); R92.313 Mammographic fatty tissue density, bilateral breasts ==